=== PATIENT | male | born 1945 | race Caucasian/White ===

== ENCOUNTER 2021-07-23 23:19 | Emergency (ER) | payer OTHER, MEDICARE, SELFPAY ==
--- NOTE | ~2021-07-23 | XR_ITS ---
EXAMINATION: XR CHEST CLINICAL INFORMATION: Cough. COMPARISON: Chest radiograph dated from 01/03/2018. TECHNIQUE: AP view of the chest was obtained. FINDINGS: Increased interstitial prominence and new hazy opacities bilaterally. No pleural effusion or pneumothorax. No acute osseous findings. Unchanged appearance of the cardiomediastinal silhouette. XR/XR chest 1V IMPRESSION: Increased interstitial markings and new multifocal hazy opacities worrisome for an infectious or inflammatory process.
[2021-07-23 23:28] VITALS: BP 173/76; PULSE 89; RESP 15; TEMP 37.7; O2SAT 93; BMI 32.1
--- NOTE | 2021-07-23 23:43 | ED_ITS ---
HPI - URI/Sore Throat General Chief Complaint: Upper Respiratory Symptoms Stated Complaint: anomia? Time Seen by Provider: 07/23/21 23:30 Source: patient Mode of arrival: ambulatory Limitations: no limitations History of Present Illness HPI Narrative: Patient with no significant lung issues in the past his [id number] was positive for with COVID 1 week ago admitted and discharged , patient not vaccinated against COVID comes here for cough and not feeling good for last 5 days saturating 94% at room air Related Data Previous Rx's Medication Instructions Recorded albuterol sulfate 90 mcg/actuation 2 puff INHALATION Q4-6H PRN #8.5 g 07/24/21 aerosol inhaler (ProAir HFA) dexamethasone 6 mg tablet 6 mg PO DAILY #7 tab 07/24/21 (Decadron) doxycycline hyclate 100 mg tablet 100 mg PO BID #20 tab 07/24/21 Allergies Allergy/AdvReac Type Severity Reaction Status Date / Time No Known Allergies Allergy Unverified 05/14/20 15:10 [No Known Allergies*] Review of Systems Review of Systems: Yes all other systems are reviewed and are negative [facility] Past Medical History Medical History Diabetes HTN (hypertension) Surgical History No history of previous surgery Social History Social History Alcohol intake: unknown Patient Tobacco Use Status: Never used Tobacco Use of substances other than those prescribed or required for medical reasons: Unknown Advance Directives: No Physical Exam Vital Signs: Vital Signs: Last Vital Signs Temp 100 F 07/23/21 23:28 Pulse 89 07/23/21 23:28 Resp 15 07/23/21 23:28 BP 173/76 H 07/23/21 23:28 Pulse Ox 95 07/23/21 23:59 Body Mass Index 32.1 Appearance: Alert. Oriented X3. No acute distress. ENT: Pharynx normal. Oral Mucosa moist Neck: Normal inspection. Neck supple. CVS: Normal heart rate and rhythm. Pulses normal. Respiratory: No respiratory distress. Equal air entry bilateral, prolonged expiration Abdomen: Soft and nontender. Bowel sounds are present, no mass palpable, no CVA tenderness Skin: Skin warm and dry. Normal skin color. Normal skin turgor. Extremities: No lower extremity edema. No calf tenderness Neuro: Oriented X 3. MDM - URI/Sore Throat MDM Narrative Medical decision making narrative: Patient with COVID-19 infection with slight inflammatory changes in the lung saturating 94% on room air discharge patient home on doxy, Decadron and albuterol inhaler Lab Data Labs: Lab Results 07/23/21 Range/Units 23:34 COVID-19 (NANCY) Positive A (Negative) COVID-19 Clin Com See Note Discharge Plan Discharge Clinical Impression: COVID-19 Patient Disposition: Home, Self-Care Instructions: COVID-19 (Coronavirus Disease 2019) (ED) Additional Instructions: Take medication as prescribed Social Isolation as advised report to the ER if significant shortness of breath Prescriptions: New dexamethasone [Decadron] 6 mg tablet 6 mg PO DAILY Qty: 7 RF: 0 albuterol sulfate [ProAir HFA] 90 mcg/actuation HFA aerosol inhaler 2 puff inhalation Q4-6H PRN (Reason: Wheezing) Qty: 8.5 RF: 0 doxycycline hyclate 100 mg tablet 100 mg PO BID Qty: 20 RF: 0
[2021-07-23 23:57] LABS: IDNOW Serial# 9DD0AD1C
[2021-07-23 23:58] LABS: COVID-19 Test Positive (Negative)
[2021-07-23 23:59] VITALS: O2SAT 95
[2021-07-24] MEDS: dexAMETHasone 2 MG TABLET 10 MG PO (01:20)
[2021-07-24] MEDS: Albuterol Sulfate 90 MCG 8 GM INHALER 2 PUFF INHALE (01:21)
== END 2021-07-24 01:28 | disposition home or self-care (01) ==
PROVIDERS: Emergency Provider Internal Medicine
DX: U07.1 COVID-19 (principal); E11.9 Type 2 diabetes mellitus without complications; I10 Essential (primary) hypertension
CPT/HCPCS: 36415; 71045; 87635; 99284; J8540

== ENCOUNTER 2023-04-17 10:42 | Outpatient (AMB) | payer OTHER, MEDICARE, SELFPAY ==
--- NOTE | 2023-04-17 10:44 | MHC.OFFVIS ---
Intake Vital Signs 04/17/23 10:45 Height 5 ft 11 in Weight 207 lb 3.752 oz BMI 28.9 BP 160/71 H Blood Pressure Location Lt brachial Position Sitting Pulse 66 Intake Visit Reasons: Blood in stool, low Hgb & Hct Intake Note: Yusuf presents in the office as a new patient for blood in the stool and low HGB, HCT. CC: He states that he has never had a colonoscopy. Patient states that he did a cologard that tested pos but he does not see any blood when he has a BM. He knows he is here to discuss a colonoscopy. 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 Pt reports having routine blood work done through his primary care office at the [place] this February that showed severe anemia with hemoglobin of 8 and ferritin of 4. Labs prior to this done in August 2022 were normal per his report. Patient himself has no abdominal complaints to include abdominal pain, nausea, vomiting, early satiety, changes in bowel habits, unintentional weight loss. No family history of colon cancer. Has never had colon cancer screening done in the past. [facility] Medical History Diabetes History of anal fissures HTN (hypertension) Hx of pilonidal cyst Surgical History Hx of appendectomy Hx of cholecystectomy Social History Alcohol intake: unknown Patient Tobacco Use Status: Never used Tobacco Review of Systems Const All systems reviewed & are unremarkable except as noted in HPI and below Physical Exam Vital Signs: Last Vital Signs Pulse 66 04/17/23 10:45 BP 160/71 H 04/17/23 10:45 BMI result Body Mass Index 28.9 Gen appear: NAD HEENT: nonicteric, Scaly 1.5 cm oblique lesion on the nose bridge Chest: CTA CVS: Regular S1/S2 Abd: soft, nontender, nondistended, bowel sounds + Ext: no peripheral edema Neuro: A/Ox3, noted to move all extremities spontaneously Psych: interacting appropriately Assessment & Plan Assessment & Plan (1) Iron deficiency: Code(s): E61.1 - Iron deficiency (2) Anemia: Code(s): D64.9 - Anemia, unspecified (3) Lesion of nose: Code(s): J34.89 - Other specified disorders of nose and nasal sinuses Plan 1. TONIA: Will need urgent workup for severe iron deficiency anemia. Ddx include gastritis/esophagitis, PUD, AVMs, large friable polyp or mass. He has already been started on iron supplements through his primary care provider. Will recheck labs today to ensure it is not needed blood transfusion or IV iron. We will set him up for EGD and colonoscopy in the next few weeks urgently. Split PEG prep instructions reviewed with the patient. Sent to [facility] pharmacy. He was also advised to hold iron supplements for 5-7 days prior to the procedure. 2. Skin lesion Noted to have lesion on the bridge of his nose that appears suspicious for basal cell. Was advised to see Dermatology perla for this. Follow up after scopes. Orders: Orders Complete Blood Count no Diff Today E61.1 - Iron deficiency Ferritin Today E61.1 - Iron deficiency Medications: New peg 3350-electrolytes 236-22.74-6.74 -5.86 gram (Golytely) as per split prep instructions, until fecal effluent is clear 240 mL PO Q10M 4,000 mL 0RF colonoscopy Coding Level of Care Code New Pt Level 4 (69668) Diagnoses Iron deficiency E61.1 Anemia D64.9 Lesion of nose J34.89
[2023-04-17 10:45] VITALS: BP 160/71; PULSE 66; BMI 28.9
== END 2023-04-17 16:01 | disposition home or self-care (01) ==
PROVIDERS: Visit Provider Internal Medicine
DX: E61.1 Iron deficiency (principal); D64.9 Anemia, unspecified; J34.89 Other specified disorders of nose and nasal sinuses
CPT/HCPCS: 99204

== ENCOUNTER 2023-04-17 10:42 | Outpatient (REF) | payer OTHER, SELFPAY ==
[2023-04-17 12:08] LABS: Hematocrit 31.2 % (42.0-52.0); Hemoglobin 9.1 g/dl (14.0-18.0); Mean Corpuscular HGB Conc 29.2 g/dl (31.0-36.0); Mean Corpuscular Hemoglobin 22.8 pg (27.0-33.0); Mean Corpuscular Volume 78.2 fL (80.0-98.0); Mean Platelet Volume 10.3 fL (9.4-12.4); Platelet Count 387 X10*3/uL (160-400); Red Blood Count 3.99 X10*6/uL (4.60-5.80); Red Cell Distribution Width 23.4 % (11.0-16.0); White Blood Count 9.4 X10*3/uL (4.8-10.8)
[2023-04-17 12:46] LABS: Ferritin 17 ng/mL (20-250)
== END 2023-04-17 10:43 | disposition home or self-care (01) ==
LOC: HO.LAB 10:42
PROVIDERS: PCP Family Medicine; Visit Provider Internal Medicine
DX: D50.9 Iron deficiency anemia, unspecified (principal); J34.89 Other specified disorders of nose and nasal sinuses; I10 Essential (primary) hypertension; R73.03 Prediabetes
CPT/HCPCS: 36415; 82728; 85027; 99202

== ENCOUNTER 2023-04-26 12:44 | Day surgery (SDC) | payer OTHER, SELFPAY ==
[2023-04-24 08:05] VITALS: BMI 28.9
--- NOTE | 2023-04-24 13:38 | HO.ANESPROP2 ---
Documented by User: Denisse Bloom NP 04/24/23 13:39 HPI - Anesthesia Eval Consult details Narrative: 77yo M for Upper Endoscopy and Colonoscopy PMFSH Active Problems Active Problems: All Active Problems (Updated 04/24/23 @ 07:56 by Libra Kanh RN) COVID-19 (Acute) Iron deficiency (Acute) Anemia (Acute) Lesion of nose (Acute) Past Medical History Medical History Cancer of skin of face Diabetes History of anal fissures HTN (hypertension) Hx of pilonidal cyst Hyperlipidemia Iron deficiency anemia Obesity Vitamin B 12 deficiency Vitamin D deficiency Surgical History Surgical History History of cataract surgery History of surgical removal of pilonidal cyst Hx of appendectomy Hx of cholecystectomy Social History Social History Alcohol intake: unknown Patient Tobacco Use Status: Never used Tobacco Use of substances other than those prescribed or required for medical reasons: No Are you DNR?: No Advance Directives: No Advance Directives Information Provided: Yes Meds Allergies Allergy/AdvReac Type Severity Reaction Status Date / Time No Known Allergies Allergy Verified 04/26/23 13:19 [No Known Allergies*] Home Medications Medication Instructions Recorded Confirmed Last Taken Type amlodipine 10 mg tablet 10 mg PO DAILY 04/24/23 04/26/23 04/26/23 History cyanocobalamin (vitamin B-12) 500 500 mcg PO DAILY 04/24/23 04/24/23 Unknown History mcg tablet docusate sodium 100 mg capsule 100 mg PO BID PRN Constipation 04/24/23 04/24/23 Unknown History dulaglutide 1.5 mg/0.5 mL 1.5 mg subcut QWEEK 04/24/23 04/26/23 04/05/23 History subcutaneous pen injector lisinopril 40 mg tablet 40 mg PO DAILY 04/24/23 04/26/23 04/26/23 History metformin 500 mg tablet,extended 1,000 mg PO DAILY 04/24/23 04/26/23 04/24/23 History release 24 hr carvedilol DAILY 04/26/23 04/26/23 History Exam Exam Date and Time: April 24, 2023 1338 Height,Weight and Vital Signs: Height 5 ft 11 in Weight 93.894 kg Pertinent Lab Results Pertinent Lab Results: Laboratory Tests 04/17/23 11:33 WBC 9.4 Hgb 9.1 L Hct 31.2 L Plt Count 387 Assessment and Plan Assessment Anesthesia Assessment: Chart Reviewed Documented by User: Shahida Peguero MD 04/26/23 14:18 PMFSH Active Problems Active Problems: All Active Problems (Updated 04/26/23 @ 13:58 by Shahida Peguero MD) COVID-19 (Acute) Iron deficiency (Acute) Anemia (Acute) Lesion of nose (Acute) Past Medical History Medical History Cancer of skin of face Diabetes History of anal fissures HTN (hypertension) Hx of pilonidal cyst Hyperlipidemia Iron deficiency anemia Obesity Vitamin B 12 deficiency Vitamin D deficiency Family History Family history of problems with anesthesia: No Surgical History Surgical History History of cataract surgery History of surgical removal of pilonidal cyst Hx of appendectomy Hx of cholecystectomy History of Problems with Anesthesia: Yes (Slow awakening with lap sonal) Social History Social History Alcohol intake: unknown Patient Tobacco Use Status: Never used Tobacco Use of substances other than those prescribed or required for medical reasons: No Are you DNR?: No Advance Directives: No Advance Directives Information Provided: Yes Meds Allergies Allergy/AdvReac Type Severity Reaction Status Date / Time No Known Allergies Allergy Verified 04/26/23 13:19 [No Known Allergies*] Home Medications Medication Instructions Recorded Confirmed Last Taken Type amlodipine 10 mg tablet 10 mg PO DAILY 04/24/23 04/26/23 04/26/23 History cyanocobalamin (vitamin B-12) 500 500 mcg PO DAILY 04/24/23 04/24/23 Unknown History mcg tablet docusate sodium 100 mg capsule 100 mg PO BID PRN Constipation 04/24/23 04/24/23 Unknown History dulaglutide 1.5 mg/0.5 mL 1.5 mg subcut QWEEK 04/24/23 04/26/23 04/05/23 History subcutaneous pen injector lisinopril 40 mg tablet 40 mg PO DAILY 04/24/23 04/26/23 04/26/23 History metformin 500 mg tablet,extended 1,000 mg PO DAILY 04/24/23 04/26/23 04/24/23 History release 24 hr carvedilol DAILY 04/26/23 04/26/23 History Exam Height,Weight and Vital Signs: Height 5 ft 11 in Weight 93.894 kg Vital Signs Temp Pulse Resp BP Pulse Ox O2 Del Method 04/26/23 13:25 98.9 F 66 16 152/63 H 98 Room Air Pertinent Lab Results Pertinent Lab Results: Laboratory Tests 04/17/23 11:33 WBC 9.4 Hgb 9.1 L Hct 31.2 L Plt Count 387 Lab Results 04/26/23 Range/Units 13:34 POC Glucose 178 H (60-115) mg/dL Airway Mallampati Class: III (Receding chin) TM Dist: >3cm Neck ROM: Full Loose/Missing/Broken Teeth: Yes (Some missing. Painful molar left bottom. Denies broken or loose teeth) Heart: RRR Lungs: CTAB Assessment and Plan Assessment Anesthesia Assessment: Anesthesia Plan Discussed Final Anesthetic Review Family History of Problems with Anesthesia: No History of Problems with Anesthesia: Yes (Slow awakening with lap sonal) NPO: Yes ASA Class: III Final Preanesthetic Review: No Changes in Pt Med Stat, Meds/Allgs Chart Reviewed, Consent Obtained/Reviewed and Anes Risks/Benef Reviewed Patient Risk: Intermediate Procedure Risk: Low Assessment/Block/Sedation in SS: Assess/Block/Sedation-SS Anesthetic Plan Anesthetic Plan: MAC: Disposition: Standard PACU
[2023-04-26 13:23] VITALS: BMI 28.6
[2023-04-26 13:25] VITALS: BP 152/63; PULSE 66; RESP 16; TEMP 37.2; O2SAT 98
[2023-04-26 13:38] LABS: Glucose, Whole Blood 178 mg/dL (60-115)
--- NOTE | 2023-04-26 13:39 | MHC.SHP ---
Pre-Procedural Eval Section A Date of Service: 04/26/23 The History & Physical has been completed within 30 days and I have reviewed it.: Yes Section B Chief Complaint: Other fecal abnormalities,Anemia, unspecified Allergies: Allergies Allergy/AdvReac Type Severity Reaction Status Date / Time No Known Allergies Allergy Verified 04/26/23 13:19 [No Known Allergies*] Plan Diagnosis/Plan: Unchanged I have reviewed the history and physical and performed a pertinent physical examination on my patient. No changes have occurred unless specified. Time Spent With Patient Time: Total time managing care of this patient today ____ minutes.
[2023-04-26] MEDS: Lactated Ringers 1,000 ML 100 ML IVCONT (13:43)
--- NOTE | 2023-04-26 14:13 | P.OP_ITS ---
Operative Note Operative Note Date of Service: 04/26/23 Narrative: Procedure:?Esophagogastroduodenoscopy and colonoscopy Endoscopist:?Lisa Small MD Indication:?Iron deficiency anemia Anesthesia Provider:?Linda Griffith CRNA Anesthesia Type:?MAC Instrument:?Olympus GIF-H190, PCF-190L EGD Procedure:?? The procedure, indications, preparation and potential complications were reviewed with the patient, who indicated understanding and gave written informed consent to proceed. A physical exam was performed. The endoscope was introduced through the mouth, and advanced to the second part of duodenum. The mucosa was carefully examined on slow withdrawal of the endoscope.? There were no immediate complications.? Patient tolerated the procedure well. EGD Findings:? * Esophagus:? Normal mucosa noted in the entire esophagus.? The Z-line is at 40 cm. * Stomach:? Normal gastric mucosa. Retroflexion was performed in the fundus which showed Hill grade II hiatal hernia. Cold forceps biopsies were taken to r/o H Pylori. * Duodenum:? Edematous mucosa in the duodenal bulb. Normal mucosa was noted to the second portion of the duodenum. Cold forceps biopsies were taken. Colonoscopy Procedure:? The patient was then turned for the colonoscopy. A digital rectal exam was performed which was normal.? A distal attachment cap was affixed to the tip of the scope and the colonoscope was then inserted through the anus and advanced through the colon to 85 cm till colon mass. Mucosa was carefully examined under high definition white light as the instrument was slowly withdrawn in a retrograde panoramic fashion. Retroflexion was performed in the rectum. The procedure was not difficult. There were no immediate obvious complications. The quality of the prep was BBPS: N/A+2+3 = R colon landmarks not identified Withdrawal time: 10 minutes Limitations: No limitation. Findings: Mucosa: A large friable, ulcerated mass spanning at least 6 cm was noted past the hepatic flexure. Scope could not be traversed safely beyond the mass due to deep ulceration and bleeding. Multiple cold forceps biopsies were taken for histology. The mass is likely in ascending colon just distal to cecum however as the cecal landmarks were not identified, a tattoo was placed 5 cm distal to the mass. Protruding lesions: * 1 semi pedunculated polyp of size 8 mm was noted just adjacent to the mass which was removed via cold snare polypectomy but not retrieved. * 1 sessile polyp of size 6 mm was noted in the transverse colon which was removed via cold snare polypectomy but not retrieved. * Medium internal hemorrhoids without stigmata of recent bleeding. Excavated lesions: * Severe diverticulosis of left colon. Impression: 1. Normal esophageal mucosa 2. Normal stomach mucosa (biopsy) 3. Abnormal duodenal bulb mucosa (biopsy) 4. Malignant appearing ascending colon mass (biopsy, tattoo) 5. Diverticulosis 6. Internal hemorrhoids Recommendations:?? * Appearance highly suspicious for malignant mass * Await pathology results.? * CT Chest, abd and pelvis ordered for staging * Referral to Oncology requested. Depending on staging scans and histology, may refer to surgery as well as pt otherwise in good health. Findings reviewed in detail with the pt.
--- NOTE | 2023-04-26 14:16 | PC.NURSE ---
Preop desk monitor showing right bundle branch block with possible first degree heart block. Patient asymptomatic. Dr. Peguero made aware. No new orders at this time, may proceed with procedure.
[2023-04-26 15:16] VITALS: BP 107/55; PULSE 59; RESP 14; TEMP 36.5; O2SAT 100
[2023-04-26 15:31] VITALS: BP 135/64; PULSE 67; RESP 16; O2SAT 98
[2023-04-26 15:46] VITALS: BP 137/62; PULSE 65; RESP 16; TEMP 36.4; O2SAT 98
== END 2023-04-26 16:01 | disposition home or self-care (01) ==
PROVIDERS: Student in an Organized Health Care Education/Training Program; PCP Family Medicine; Visit Provider Internal Medicine
PROC: (CPT 45385; principal; 2023-04-26 14:00)
DX: D50.9 Iron deficiency anemia, unspecified (principal); R19.5 Other fecal abnormalities; C18.2 Malignant neoplasm of ascending colon; K63.5 Polyp of colon; K57.30 Diverticulosis of large intestine without perforation or abscess without bleeding; K64.8 Other hemorrhoids; K60.2 Anal fissure, unspecified; K63.89 Other specified diseases of intestine; K29.80 Duodenitis without bleeding; K44.9 Diaphragmatic hernia without obstruction or gangrene; C44.310 Basal cell carcinoma of skin of unspecified parts of face; I10 Essential (primary) hypertension; E11.9 Type 2 diabetes mellitus without complications; E55.9 Vitamin D deficiency, unspecified; E53.8 Deficiency of other specified B group vitamins; E66.9 Obesity, unspecified; Z68.28 Body mass index [BMI] 28.0-28.9, adult; Z90.49 Acquired absence of other specified parts of digestive tract; Z79.84 Long term (current) use of oral hypoglycemic drugs; Z79.899 Other long term (current) drug therapy
CPT/HCPCS: 45385; 45380; 45381; 43239; 36415; 81210; 81275; 81276; 81288; 81311; 81403; 82947; 88305; 88341; 88342; J2371

== ENCOUNTER → 2023-04-26 12:44 | Outpatient (BNV) | payer MEDICARE, SELFPAY | PROVIDERS: PCP Family Medicine; Visit Provider Internal Medicine | DX: D50.9 Iron deficiency anemia, unspecified (principal); K57.30 Diverticulosis of large intestine without perforation or abscess without bleeding; K64.8 Other hemorrhoids; D12.3 Benign neoplasm of transverse colon; C18.2 Malignant neoplasm of ascending colon | CPT/HCPCS: 43239; 45385 ==

== ENCOUNTER 2023-05-12 08:45 | Outpatient (REF) | payer OTHER, MEDICARE, SELFPAY ==
--- NOTE | ~2023-05-12 | CT_ITS ---
EXAMINATION: CT CHEST WITH CONTRAST CLINICAL INFORMATION: Colon Mass COMPARISON: Previous chest x-ray June 2021 and chest CTA December 2017 TECHNIQUE: Multidetector volumetric CT imaging of the chest was obtained after the administration of 85 mL of Omnipaque 350 intravenous contrast without immediate adverse reactions. Axial MIP volume rendering provided. Sagittal and coronal reformatted images were obtained. This CT examination was performed using dose optimization techniques as appropriate, variously including the following: *Automated exposure control *Adjustment of mA and/or kV according to patient size (this includes techniques or standardized protocols for targeted exams where dose is matched to indication/reason for exam; i.e. extremities or head) *Use of iterative reconstruction technique DLP: 153 mGy-cm FINDINGS: LUNGS: 2 mm peripheral or subpleural left upper lobe nodule axial image 244 series 5. 2 mm left upper lobe nodule axial image 260 series 5. 4 mm peripheral or subpleural right upper lobe nodule along the minor fissure axial image 284 series 5 adjacent peripheral or subpleural left lower lobe nodules measuring 4 mm axial image 415 and 417 series 5. These probably represent peripheral or subpleural lymph nodes. Comparison with previous chest CT from December 2017 and is difficult given bilateral multilobar pneumonia on 2018 exam. Evaluation of the lung bases is limited due to respiratory motion artifact. There is focal bronchiectasis, bronchial wall thickening and increased peribronchial attenuation in the left lower lobe probably representing airways disease/infectious or inflammatory process. There are similar changes of bronchial wall thickening and increased peribronchial attenuation in the right lower lobe as well. No endobronchial or endotracheal lesion. MEDIASTINUM: Small mediastinal and bilateral hilar lymph nodes. No enlarged lymph nodes. Normal heart size. No pericardial effusion. Mild coronary artery calcification. PLEURA: There is no pleural effusion. No pleural mass or thickening. AXILLA: No lymphadenopathy. UPPER ABDOMEN: See abdominal and pelvic CT report from the same day OSSEOUS STRUCTURES: Degenerative changes of the spine. CT/CT chest w IV con IMPRESSION: Small pulmonary nodules, the majority probably representing peripheral or subpleural lymph nodes. Chest CT follow-up as per protocol. Limited evaluation of the lung bases due to respiratory motion artifact. Bronchial wall thickening and increased peribronchial attenuation in both lower lobes and mild focal bronchiectasis in the left lower lobe. Appearance is suggestive of infectious or inflammatory process/bronchitis. Fleischner guidelines were followed.
--- NOTE | ~2023-05-12 | CT_ITS ---
EXAMINATION: CT ABDOMEN AND PELVIS WITH CONTRAST CLINICAL INFORMATION: Colon Mass COMPARISON: Abdominal MRI and ultrasound from 2015 TECHNIQUE: Multidetector volumetric images were obtained from the superior aspect of the liver through the pubic symphysis following administration 85 mL of Omnipaque 350 intravenous contrast. Sagittal and coronal reformatted images were obtained on the technologist's workstation. Oral contrast: Yes This CT examination was performed using dose optimization techniques as appropriate, variously including the following: *Automated exposure control *Adjustment of mA and/or kV according to patient size (this includes techniques or standardized protocols for targeted exams where dose is matched to indication/reason for exam; i.e. extremities or head) *Use of iterative reconstruction technique DLP: 542 mGy-cm FINDINGS: LUNG BASES: See chest CT report from the same day LIVER, GALLBLADDER, AND BILIARY TREE: The liver is normal in size, shape, and attenuation. No focal hepatic lesion or biliary ductal dilatation is present. The gallbladder has been removed. PANCREAS: Unremarkable. SPLEEN: Unremarkable. ADRENAL GLANDS: Unremarkable. KIDNEYS AND URETERS: The kidneys are normal in size, shape, and attenuation. No hydronephrosis, hydroureter, or calculi seen. No perinephric stranding. Bilateral renal cysts. No imaging follow-up recommended. BLADDER: Unremarkable. GASTROINTESTINAL TRACT: There is marked irregular wall thickening of the distal right colon with apple core appearance or a luminal narrowing. This measures 6.4 cm in longitudinal dimension. There is stranding of the surrounding fat. There are enlarged pericolic lymph nodes, largest measuring 1.7 cm. Contrast passes through this region and there is no evidence for obstruction at this time. There is stool throughout the colon suggestive of constipation. There is a severe diverticulosis of the distal colon. Small bowel is unremarkable. The appendix is not seen. ABDOMINAL WALL: There are ventral and umbilical hernias containing fat. LYMPH NODES: Enlarged pericolic lymph nodes adjacent to the right colon mass. Largest lymph node measures 1.7 cm in short axis. No other adenopathy. No ascites. VASCULAR: Unremarkable. PELVIC VISCERA: Slightly enlarged measuring 4 x 5.3 cm in AP and transverse dimension OSSEOUS STRUCTURES: Degenerative changes of the spine and hip joints CT/CT abdomen pelvis w IV con IMPRESSION: Large right colon mass measuring 6.4 cm in length with applecore appearance suspicious for neoplasm. Enlarged adjacent pericolic lymph nodes, largest measuring 1.7 cm in short axis and stranding of the adjacent fat. No evidence of of distant disease. Constipation and diverticulosis. Large ventral and umbilical hernias containing fat. Fleischner guidelines were followed.
[2023-05-12 09:30] LABS: Anion Gap 12 (12-20); Blood Urea Nitrogen 17 mg/dL (9-16); Calcium 8.7 mg/dL (8.4-10.2); Carbon Dioxide 24 mmol/L (22-29); Chloride 111 mmol/L (96-108); Estimated Glomerular Filt Rate 58; Glucose Random 230 mg/dL (60-115); Potassium 4.9 mmol/L (3.3-5.1); Sodium 142 mmol/L (135-145)
[2023-05-12] MEDS: iohexoL 350 MG/ML 100 ML INFUS..BTL 85 ML IV (11:42)
[2023-05-12] MEDS: Barium Sulfate Oral (Mocha) 450 ML ORAL.SUSP 900 ML PO (11:47)
== END 2023-05-12 08:46 | disposition home or self-care (01) ==
LOC: HO.CT 08:45
PROVIDERS: PCP Family Medicine; Visit Provider Internal Medicine
DX: K63.89 Other specified diseases of intestine (principal)
CPT/HCPCS: 36415; 71260; 74177; 80048; Q9967

== ENCOUNTER → 2023-05-19 08:45 | Outpatient (BNV) | payer MEDICARE, SELFPAY | PROVIDERS: PCP Family Medicine; Visit Provider Internal Medicine Medical Oncology | DX: D50.9 Iron deficiency anemia, unspecified (principal); Z85.038 Personal history of other malignant neoplasm of large intestine; Z92.21 Personal history of antineoplastic chemotherapy | CPT/HCPCS: 99204; 99213; 99214 ==

== ENCOUNTER 2023-05-26 14:16 | Outpatient (AMB) | payer OTHER, SELFPAY ==
[2023-05-26 14:18] VITALS: BP 155/68; PULSE 62; BMI 29.2
--- NOTE | 2023-05-26 14:18 | A.OFFVIS_ITS ---
Intake Vital Signs 05/26/23 14:18 Height 5 ft 11 in Weight 209 lb 7.026 oz BMI 29.2 BP 155/68 H Blood Pressure Location Lt brachial Position Sitting Pulse 62 Intake Visit Reasons: Urgent EGD, [place]; Dr Small Intake Note: Yusuf presents in the office as a follow up EGD and COLO. CC: HE states that he is feeling okay! 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 04/17/23: Pt reports having routine blood work done through his primary care office at the [facility] this February that showed severe anemia with hemoglobin of 8 and ferritin of 4. Labs prior to this done in August 2022 were normal per his report. Patient himself has no abdominal complaints to include abdominal pain, nausea, vomiting, early satiety, changes in bowel habits, unintentional weight loss. No family history of colon cancer. Has never had colon cancer screening done in the past. 04/26/23: 1. Normal esophageal mucosa 2. Normal stomach mucosa (biopsy) 3. Abnormal duodenal bulb mucosa (biopsy ) 4. Malignant appearing ascending colon m ass (biopsy, tattoo) 5. Diverticulosis 6. Internal hemorrhoids Path: A. 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 B. 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 C. Stomach, random, biopsies: Mild reactive gastropathy, no evidence of H. pylori, intestinal metaplasia, or dysplasia. D. Colon, ascending, biopsy of mass: Adenocarcinoma, invasive, moderately differentiated Addendum #1 Mismatch repair immunohistochemistry shows intact MLH1, MSH2, and MSH6 staining and loss of PMS2 staining. MLH1 methylation promoter methylation is not detected by an analysis performed at [facility]. 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 05/12/23: CT chest/abd/pel: Small pulmonary nodules, the majority probably representing peripheral or subpleural lymph nodes. Chest CT follow-up as per protocol. Limited evaluation of the lung bases due to respiratory motion artifact. Bronchial wall thickening and increased peribronchial attenuation in both lower lobes and mild focal bronchiectasis in the left lower lobe. Appearance is suggestive of infectious or inflammatory process/bronchitis. Large right colon mass measuring 6.4 cm in length with applecore appearance suspicious for neoplasm. Enlarged adjacent pericolic lymph nodes, largest measuring 1.7 cm in short axis and stranding of the adjacent fat. No evidence of of distant disease. Constipation and diverticulosis. Large ventral and umbilical hernias containing fat. 05/26/23: Seen in office. Reports no abd pain, N,V, changes in stool or blood in stool. Continues on iron supplements. Reports good energy levels, has been mowing his lawn. Seen by Onc and waiting to see surgery. Also tells me was sent for genetic testing through Dr Griffiths. For the nose lesion, has not seen his customer support assistant yet. Planning to take care of that after his colon surgery. COUNT INCLUDES [facility] Medical History Vitamin B 12 deficiency Obesity Iron deficiency anemia Vitamin D deficiency Hyperlipidemia Cancer of skin of face Hx of pilonidal cyst History of anal fissures Diabetes HTN (hypertension) Surgical History (Updated 05/26/23 @ 14:19 by LISSA Myers) Hx of colonoscopy History of esophagogastroduodenoscopy (EGD) History of cataract surgery History of surgical removal of pilonidal cyst Hx of appendectomy Hx of cholecystectomy Social History Household Members: Spouse Housing: House Alcohol intake: unknown Patient Tobacco Use Status: Never used Tobacco service: Yes Current occupational status: retired Review of Systems Const All systems reviewed & are unremarkable except as noted in HPI and below Physical Exam Vital Signs: Last Vital Signs Pulse 62 05/26/23 14:18 BP 155/68 H 05/26/23 14:18 BMI result Body Mass Index 29.2 Gen appear: NAD HEENT: nonicteric, Scaly 1.5 cm oblique lesion on the nose bridge Chest: CTA CVS: Regular S1/S2 Abd: soft, nontender, nondistended, bowel sounds + Ext: no peripheral edema Neuro: A/Ox3, noted to move all extremities spontaneously Psych: interacting appropriately Assessment & Plan Assessment & Plan (1) Adenocarcinoma of colon: Code(s): C18.9 - Malignant neoplasm of colon, unspecified (2) Colonic mass: Code(s): K63.89 - Other specified diseases of intestine (3) Anemia: Code(s): D64.9 - Anemia, unspecified Plan Awaiting consultation with surgery for discussion and timing of colon resection. Otherwise no concerns at appt today. Further treatment will depend on pathological staging of tumor. He was also informed that he will need a repeat colonoscopy one year post-op. Follow up in 4 months Orders: Referrals Hematology & Oncology Referral K63.89 - Other specified diseases of intestine Coding Level of Care Code Est Pt Level 4 (48642) Diagnoses Adenocarcinoma of colon C18.9 Colonic mass K63.89 Anemia D64.9
== END 2023-05-26 14:51 | disposition home or self-care (01) ==
PROVIDERS: PCP Family Medicine; Visit Provider Internal Medicine
DX: C18.9 Malignant neoplasm of colon, unspecified (principal); K63.89 Other specified diseases of intestine; D64.9 Anemia, unspecified
CPT/HCPCS: 99214

== ENCOUNTER → 2023-05-26 14:16 | Outpatient (BNVA) | payer OTHER, MEDICARE, SELFPAY | PROVIDERS: Visit Provider Internal Medicine | DX: K63.89 Other specified diseases of intestine (principal); C18.9 Malignant neoplasm of colon, unspecified; D64.9 Anemia, unspecified | CPT/HCPCS: 99212 ==

== ENCOUNTER 2023-05-31 14:42 | Outpatient (AMB) | payer OTHER, SELFPAY ==
[2023-05-31 14:44] VITALS: BMI 29.7
--- NOTE | 2023-05-31 14:44 | A.OFFVIS_ITS ---
Intake Vital Signs 05/31/23 14:44 Height 5 ft 11 in Weight 213 lb BMI 29.7 Intake Visit Reasons: Right Colon mass Intake Note: This patient presents for an assessment for right colon mass. Patient c/o; reports no rectal bleeding, pressure or pain, reports has bowel movements at least once daily. 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 He had undergone colonoscopy last 04/26/2023 because of anemia. His hemoglobin in February 2023 was 8 and previously this has been within normal. He had described having some fatigability around that time. He was started on iron pills His colonoscopy last April 26, 2023 showed a lesion in the right colon and biopsies of this had shown an adenocarcinoma. He was therefore referred to me. He otherwise denies any GI complaints. He says he does not have any abdominal pain. He has good bowel movements. He denies any family history of colon cancer. He states that he now feels much better after he had been started on iron pills. [facility] Medical History White coat syndrome with hypertension Pneumonia Chronic bronchitis Incisional hernia Vitamin B 12 deficiency Obesity Iron deficiency anemia Vitamin D deficiency Hyperlipidemia Cancer of skin of face Hx of pilonidal cyst History of anal fissures Diabetes HTN (hypertension) Surgical History History of surgery Hx of endoscopic retrograde cholangiopancreatography Hx of colonoscopy History of esophagogastroduodenoscopy (EGD) History of cataract surgery History of surgical removal of pilonidal cyst Hx of appendectomy Hx of cholecystectomy Social History Household Members: Significant Other Housing: House Are you a primary critical care specialist to a significant other at home: No Do you presently have visiting nurse or other home services: No Alcohol intake: unknown Patient Tobacco Use Status: Never used Tobacco Use of substances other than those prescribed or required for medical reasons: No Currently Displaying Signs/Symptoms of Drug Intoxication Withdrawal: No Any prior treatment program specific to substance use: No Have you been hit, kicked, punched, or otherwise hurt by someone within the past year? If so, by whom?: No Do you feel safe in your current relationship?: Yes Is there a partner from a previous relationship who is making you feel unsafe now?: No Are you made to feel afraid or neglected: No Are you DNR?: No Advance Directives: No (states is HCP, unsure if has copy at home, states has one @ the [facility] Advance Directives Information Provided: Yes (as above noted) Advance Directives on File: No Recently lost weight without trying: No Eating poorly because of decreased appetite: No Nutrition Risks: No Nutritional Risk Poor oral hygiene: No service: No Current occupational status: retired Review of Systems Const Denies chills and Denies fever(s) Card Denies chest pain, Denies dyspnea and Denies dyspnea on exertion Resp Denies cough, Denies dyspnea and Denies dyspnea on exertion GI Denies hematochezia and Denies change in bowel habits Denies hematuria and Denies difficulty urinating Musc Denies back pain and Denies limited range of motion Neuro Denies focal weakness and Denies convulsions Psych Denies depression and Denies mood swings Physical Exam Vital Signs: BMI result Body Mass Index 29.7 Const General: comfortable and no acute distress Orientation/consciousness: patient oriented x3 Neck Neck: Yes no lymphadenopathy Resp Auscultation: clear to auscultation bilaterally Cardio Rhythm: regular rhythm GI Other: Has a large hernia on the umbilical area which he says is from his previous port site for his laparoscopic cholecystectomy; the fascial defect on the CT scan measures about 4.5 cm Palpation (GI): Soft to palpation, nontender and no guarding Neuro General: patient oriented x3 Assessment & Plan Assessment & Plan (1) Adenocarcinoma of colon: Code(s): C18.9 - Malignant neoplasm of colon, unspecified Plan: He has a large lesion in the mid right colon with biopsy showing an invasive adenocarcinoma. I therefore had a long discussion with him about right colon resection. I explained the technique of hand assisted laparoscopic right colon resection, possible conversion to an open procedure. I reviewed with him the risks of the procedure including but not limited to bleeding, infections, bowel injury, staple line leak, injury to the urinary tract or other organs, blood clots, pneumonia, PA, as well as the benefits and alternatives. I also explained to him what to expect postoperatively. We will also repair his incisional hernia on the umbilicus along with the right colon resection. He wants to proceed. His was with him during the visit We will have a preadmission testing with anesthesia arranged for him in view of his age. His imaging studies do not seem to suggest any liver metastatic disease at this time. (2) Incisional hernia: Code(s): K43.2 - Incisional hernia without obstruction or gangrene Plan: He has a large fat containing hernia on the umbilicus from his previous laparoscopic cholecystectomy port site. The fascial defect measures about 4.5 cm. We will plan on repairing this as well along with the right colon resection. Review of his CT shows another smaller hernia above the umbilicus. Coding Level of Care Code New Pt Level 4 (33368) Diagnoses Adenocarcinoma of colon C18.9 Incisional hernia K43.2
== END 2023-05-31 15:13 | disposition home or self-care (01) ==
PROVIDERS: PCP Family Medicine; Visit Provider Surgery
DX: C18.9 Malignant neoplasm of colon, unspecified (principal); K43.2 Incisional hernia without obstruction or gangrene
CPT/HCPCS: 99204

== ENCOUNTER → 2023-05-31 14:42 | Outpatient (BNVA) | payer OTHER, SELFPAY | PROVIDERS: PCP Family Medicine; Visit Provider Surgery ==

== ENCOUNTER 2023-06-14 07:21 | Inpatient (IN) | payer OTHER, SELFPAY ==
--- NOTE | 2023-06-08 | ECG_ITS ---
Test Reason : preop Blood Pressure : / mmHG Vent. Rate : 064 BPM Atrial Rate : 064 BPM P-R Int : 252 ms QRS Dur : 144 ms QT Int : 446 ms P-R-T Axes : 057 -52 010 degrees QTc Int : 460 ms Sinus rhythm with 1st degree A-V block Left anterior fascicular block Right bundle branch block Abnormal ECG When compared with ECG of 03-JAN-2018 20:50, NC interval has increased Referred By: Denisse Bloom Electronically Signed By:SOTERO MATTHEWS MD
[2023-06-08 12:08] VITALS: BP 161/67; PULSE 65; RESP 20; O2SAT 98; BMI 28.7
--- NOTE | 2023-06-08 12:24 | HO.ANESPROP2 ---
Documented by User: Denisse Bloom NP 06/09/23 09:50 HPI - Anesthesia Eval Consult details Narrative: 77yo M for Right Hand Assist Colon Resection Laparoscopic,poss open, Hernia Repair Incisional No recent illness No CP/SOB with yard work. Reports some fatigue likely related to anemia. BP up at PAT. Dx white coat syndrom by pcp. Monitor of home BP WNL DM. Trulicity weekly on Fridays - will hold 06/09/23 dose. FBS ~ 130-150 Chronic bronchitis. No symptoms. Rare coughing at night Pt request HOB elevated post op PMFSH Active Problems Active Problems: All Active Problems (Updated 06/08/23 @ 12:16 by Dennise Steiner RN) Adenocarcinoma of colon (Acute) Adenocarcinoma (Acute) Colonic mass (Acute) Lesion of nose (Acute) Anemia (Acute) Iron deficiency (Acute) COVID-19 (Acute) Incisional hernia (Acute) Past Medical History Medical History White coat syndrome with hypertension Pneumonia Chronic bronchitis Incisional hernia Vitamin B 12 deficiency Obesity Iron deficiency anemia Vitamin D deficiency Hyperlipidemia Cancer of skin of face Hx of pilonidal cyst History of anal fissures Diabetes HTN (hypertension) Family History Family history of problems with anesthesia: No Surgical History Surgical History History of surgery Hx of endoscopic retrograde cholangiopancreatography Hx of colonoscopy History of esophagogastroduodenoscopy (EGD) History of cataract surgery History of surgical removal of pilonidal cyst Hx of appendectomy Hx of cholecystectomy History of Problems with Anesthesia: Yes (Slow awakening with lap sonal) Social History Social History Household Members: Spouse Housing: House Are you a primary respiratory care specialist to a significant other at home: No Do you presently have visiting nurse or other home services: No Alcohol intake: unknown Patient Tobacco Use Status: Never used Tobacco Use of substances other than those prescribed or required for medical reasons: No Have you been hit, kicked, punched, or otherwise hurt by someone within the past year? If so, by whom?: No Are you DNR?: No Advance Directives Information Provided: Yes (as above noted) Advance Directives on File: No Recently lost weight without trying: No Eating poorly because of decreased appetite: No Nutrition Risks: Surgical patient >75years Poor oral hygiene: No (has 4 missing teeth) service: Yes Current occupational status: retired Meds Allergies Allergy/AdvReac Type Severity Reaction Status Date / Time No Known Allergies Allergy Verified 06/14/23 06:19 [No Known Allergies*] Home Medications Medication Instructions Recorded Confirmed Last Taken Type amlodipine 10 mg tablet 10 mg PO QAM 04/24/23 06/14/23 06/14/23 04:45 History cyanocobalamin (vitamin B-12) 500 500 mcg PO QAM 04/24/23 06/14/23 06/13/23 History mcg tablet docusate sodium 100 mg capsule 100 mg PO BID PRN Constipation 04/24/23 06/14/23 06/13/23 History dulaglutide 1.5 mg/0.5 mL 1.5 mg subcut QWEEK 04/24/23 06/14/23 06/02/23 History subcutaneous pen injector lisinopril 40 mg tablet 40 mg PO QAM 04/24/23 06/14/23 06/13/23 History metformin 500 mg tablet,extended 500 mg PO QPM 04/24/23 06/14/23 06/13/23 23:00 History release 24 hr carvedilol 25 mg tablet 25 mg PO BID 06/07/23 06/14/23 06/14/23 04:45 History ferrous sulfate 325 mg (65 mg 325 mg PO QAM 06/07/23 06/14/23 06/13/23 History iron) tablet Exam Exam Date and Time: June 08, 2023 1224 Height,Weight and Vital Signs: Height 5 ft 11 in Weight 93.44 kg Last Vital Signs Pulse 65 06/08/23 12:08 Resp 20 06/08/23 12:08 BP 161/67 H 06/08/23 12:08 Pulse Ox 98 06/08/23 12:08 O2 Del Method Room Air 06/08/23 12:08 Pertinent Lab Results Pertinent Lab Results: Lab Results 06/08/23 06/08/23 06/08/23 Range/Units 13:00 13:09 13:09 WBC 8.5 8.3 (4.8-10.8) X10*3/uL RBC 4.16 L (4.60-5.80) X10*6/uL Hgb (14.0-18.0) g/dl Hct (42.0-52.0) % MCV (80.0-98.0) fL MCH (27.0-33.0) pg MCHC (31.0-36.0) g/dl RDW (11.0-16.0) % Plt Count (160-400) X10*3/uL MPV (9.4-12.4) fL Immature Gran % (Auto) (0.0-0.4) % Neut % (Auto) (45-73) % Lymph % (Auto) (20-40) % Gillespie % (Auto) (2-11) % Eos % (Auto) (0-4) % Baso % (Auto) (0-2) % Lymph # (Auto) (1.2-4.9) X10*3/uL Gillespie # (Auto) (0.1-1.2) X10*3/uL Eos # (Auto) (0.0-0.4) X10*3/uL Baso # (Auto) (0.0-0.2) X10*3/uL Abs Immat Gran (auto) (0.00-0.03) X10*3/uL Absolute Neuts (auto) (2.0-8.3) x10*3/uL Absolute Nucleated RBC (0.0-0.012) X10*3/uL Nucleated RBC % (auto) (0.0-0.2) /100WBC Sodium (135-145) mmol/L Potassium (3.3-5.1) mmol/L Chloride (96-108) mmol/L Carbon Dioxide (22-29) mmol/L Anion Gap (12-20) BUN (9-16) mg/dL Creatinine (0.5-1.4) mg/dL Estim Creat Clear Calc Estimated GFR Random Glucose (60-115) mg/dL Estimat Average Glucose mg/dL Hemoglobin A1c % (<6.0) % Calcium (8.4-10.2) mg/dL Total Bilirubin (0.0-1.0) mg/dL AST (5-37) U/L ALT (0-40) U/L Alkaline Phosphatase (39-117) U/L Total Protein (6.5-8.0) g/dL Albumin (3.5-5.0) g/dL Carcinoembryonic Ag ng/mL Blood Type A Positive Antibody Screen NEGATIVE 06/08/23 06/08/23 06/08/23 Range/Units 13:09 13:09 13:09 WBC (4.8-10.8) X10*3/uL RBC 4.07 L (4.60-5.80) X10*6/uL Hgb 9.9 L 9.9 L (14.0-18.0) g/dl Hct 33.2 L 32.7 L (42.0-52.0) % MCV 79.8 L (80.0-98.0) fL MCH (27.0-33.0) pg MCHC (31.0-36.0) g/dl RDW (11.0-16.0) % Plt Count (160-400) X10*3/uL MPV (9.4-12.4) fL Immature Gran % (Auto) (0.0-0.4) % Neut % (Auto) (45-73) % Lymph % (Auto) (20-40) % Gillespie % (Auto) (2-11) % Eos % (Auto) (0-4) % Baso % (Auto) (0-2) % Lymph # (Auto) (1.2-4.9) X10*3/uL Gillespie # (Auto) (0.1-1.2) X10*3/uL Eos # (Auto) (0.0-0.4) X10*3/uL Baso # (Auto) (0.0-0.2) X10*3/uL Abs Immat Gran (auto) (0.00-0.03) X10*3/uL Absolute Neuts (auto) (2.0-8.3) x10*3/uL Absolute Nucleated RBC (0.0-0.012) X10*3/uL Nucleated RBC % (auto) (0.0-0.2) /100WBC Sodium (135-145) mmol/L Potassium (3.3-5.1) mmol/L Chloride (96-108) mmol/L Carbon Dioxide (22-29) mmol/L Anion Gap (12-20) BUN (9-16) mg/dL Creatinine (0.5-1.4) mg/dL Estim Creat Clear Calc Estimated GFR Random Glucose (60-115) mg/dL Estimat Average Glucose mg/dL Hemoglobin A1c % (<6.0) % Calcium (8.4-10.2) mg/dL Total Bilirubin (0.0-1.0) mg/dL AST (5-37) U/L ALT (0-40) U/L Alkaline Phosphatase (39-117) U/L Total Protein (6.5-8.0) g/dL Albumin (3.5-5.0) g/dL Carcinoembryonic Ag ng/mL Blood Type Antibody Screen 06/08/23 06/08/23 06/08/23 Range/Units 13:09 13:09 13:09 WBC (4.8-10.8) X10*3/uL RBC (4.60-5.80) X10*6/uL Hgb (14.0-18.0) g/dl Hct (42.0-52.0) % MCV 80.3 (80.0-98.0) fL MCH 23.8 L 24.3 L (27.0-33.0) pg MCHC 29.8 L 30.3 L (31.0-36.0) g/dl RDW 18.6 H (11.0-16.0) % Plt Count (160-400) X10*3/uL MPV (9.4-12.4) fL Immature Gran % (Auto) (0.0-0.4) % Neut % (Auto) (45-73) % Lymph % (Auto) (20-40) % Gillespie % (Auto) (2-11) % Eos % (Auto) (0-4) % Baso % (Auto) (0-2) % Lymph # (Auto) (1.2-4.9) X10*3/uL Gillespie # (Auto) (0.1-1.2) X10*3/uL Eos # (Auto) (0.0-0.4) X10*3/uL Baso # (Auto) (0.0-0.2) X10*3/uL Abs Immat Gran (auto) (0.00-0.03) X10*3/uL Absolute Neuts (auto) (2.0-8.3) x10*3/uL Absolute Nucleated RBC (0.0-0.012) X10*3/uL Nucleated RBC % (auto) (0.0-0.2) /100WBC Sodium (135-145) mmol/L Potassium (3.3-5.1) mmol/L Chloride (96-108) mmol/L Carbon Dioxide (22-29) mmol/L Anion Gap (12-20) BUN (9-16) mg/dL Creatinine (0.5-1.4) mg/dL Estim Creat Clear Calc Estimated GFR Random Glucose (60-115) mg/dL Estimat Average Glucose mg/dL Hemoglobin A1c % (<6.0) % Calcium (8.4-10.2) mg/dL Total Bilirubin (0.0-1.0) mg/dL AST (5-37) U/L ALT (0-40) U/L Alkaline Phosphatase (39-117) U/L Total Protein (6.5-8.0) g/dL Albumin (3.5-5.0) g/dL Carcinoembryonic Ag ng/mL Blood Type Antibody Screen 06/08/23 06/08/23 06/08/23 Range/Units 13:09 13:09 13:09 WBC (4.8-10.8) X10*3/uL RBC (4.60-5.80) X10*6/uL Hgb (14.0-18.0) g/dl Hct (42.0-52.0) % MCV (80.0-98.0) fL MCH (27.0-33.0) pg MCHC (31.0-36.0) g/dl RDW 18.6 H (11.0-16.0) % Plt Count 395 398 (160-400) X10*3/uL MPV 10.2 10.0 (9.4-12.4) fL Immature Gran % (Auto) 0.2 (0.0-0.4) % Neut % (Auto) 68.3 (45-73) % Lymph % (Auto) 18.7 L (20-40) % Gillespie % (Auto) 7.8 (2-11) % Eos % (Auto) 4.0 (0-4) % Baso % (Auto) 1.0 (0-2) % Lymph # (Auto) 1.6 (1.2-4.9) X10*3/uL Gillespie # (Auto) 0.7 (0.1-1.2) X10*3/uL Eos # (Auto) 0.3 (0.0-0.4) X10*3/uL Baso # (Auto) 0.1 (0.0-0.2) X10*3/uL Abs Immat Gran (auto) 0.02 (0.00-0.03) X10*3/uL Absolute Neuts (auto) 5.7 (2.0-8.3) x10*3/uL Absolute Nucleated RBC 0.000 (0.0-0.012) X10*3/uL Nucleated RBC % (auto) (0.0-0.2) /100WBC Sodium (135-145) mmol/L Potassium (3.3-5.1) mmol/L Chloride (96-108) mmol/L Carbon Dioxide (22-29) mmol/L Anion Gap (12-20) BUN (9-16) mg/dL Creatinine (0.5-1.4) mg/dL Estim Creat Clear Calc Estimated GFR Random Glucose (60-115) mg/dL Estimat Average Glucose mg/dL Hemoglobin A1c % (<6.0) % Calcium (8.4-10.2) mg/dL Total Bilirubin (0.0-1.0) mg/dL AST (5-37) U/L ALT (0-40) U/L Alkaline Phosphatase (39-117) U/L Total Protein (6.5-8.0) g/dL Albumin (3.5-5.0) g/dL Carcinoembryonic Ag ng/mL Blood Type Antibody Screen 06/08/23 06/08/23 Range/Units 13:09 13:09 WBC (4.8-10.8) X10*3/uL RBC (4.60-5.80) X10*6/uL Hgb (14.0-18.0) g/dl Hct (42.0-52.0) % MCV (80.0-98.0) fL MCH (27.0-33.0) pg MCHC (31.0-36.0) g/dl RDW (11.0-16.0) % Plt Count (160-400) X10*3/uL MPV (9.4-12.4) fL Immature Gran % (Auto) (0.0-0.4) % Neut % (Auto) (45-73) % Lymph % (Auto) (20-40) % Gillespie % (Auto) (2-11) % Eos % (Auto) (0-4) % Baso % (Auto) (0-2) % Lymph # (Auto) (1.2-4.9) X10*3/uL Gillespie # (Auto) (0.1-1.2) X10*3/uL Eos # (Auto) (0.0-0.4) X10*3/uL Baso # (Auto) (0.0-0.2) X10*3/uL Abs Immat Gran (auto) (0.00-0.03) X10*3/uL Absolute Neuts (auto) (2.0-8.3) x10*3/uL Absolute Nucleated RBC 0.000 (0.0-0.012) X10*3/uL Nucleated RBC % (auto) 0.0 0.0 (0.0-0.2) /100WBC Sodium 140 (135-145) mmol/L Potassium 4.7 (3.3-5.1) mmol/L Chloride 108 (96-108) mmol/L Carbon Dioxide 23 (22-29) mmol/L Anion Gap 14 (12-20) BUN 15 (9-16) mg/dL Creatinine 1.26 (0.5-1.4) mg/dL Estim Creat Clear Calc 58.2 Estimated GFR 56 Random Glucose 167 H (60-115) mg/dL Estimat Average Glucose 160 mg/dL Hemoglobin A1c % 7.2 H (<6.0) % Calcium 9.6 D (8.4-10.2) mg/dL Total Bilirubin 0.2 (0.0-1.0) mg/dL AST 17 (5-37) U/L ALT 7 (0-40) U/L Alkaline Phosphatase 107 (39-117) U/L Total Protein 6.7 (6.5-8.0) g/dL Albumin 3.9 (3.5-5.0) g/dL Carcinoembryonic Ag 15.40 ng/mL Blood Type Antibody Screen Narrative Narrative: EKG 05/2023 Vent. Rate : 064 BPM Atrial Rate : 064 BPM P-R Int : 252 ms QRS Dur : 144 ms QT Int : 446 ms P-R-T Axes : 057 -52 010 degrees QTc Int : 460 ms Sinus rhythm with 1st degree A-V block Left anterior fascicular block Right bundle branch block Abnormal ECG When compared with ECG of 03-JAN-2018 20:50, MT interval has increased Airway Mallampati Class: III (Receding chin) TM Dist: >3cm Neck ROM: Full Loose/Missing/Broken Teeth: Yes (Some missing. Denies broken or loose teeth) Heart: RRR Lungs: CTAB Assessment and Plan Assessment Anesthesia Assessment: Anesthesia Plan Discussed and PAT Visit Final Anesthetic Review Family History of Problems with Anesthesia: No History of Problems with Anesthesia: Yes (Slow awakening with lap sonal) Documented by User: Chapito Gomez MD 06/14/23 08:15 [facility] Past Medical History Medical History White coat syndrome with hypertension Pneumonia Chronic bronchitis Incisional hernia Vitamin B 12 deficiency Obesity Iron deficiency anemia Vitamin D deficiency Hyperlipidemia Cancer of skin of face Hx of pilonidal cyst History of anal fissures Diabetes HTN (hypertension) Surgical History Surgical History History of surgery Hx of endoscopic retrograde cholangiopancreatography Hx of colonoscopy History of esophagogastroduodenoscopy (EGD) History of cataract surgery History of surgical removal of pilonidal cyst Hx of appendectomy Hx of cholecystectomy Social History Social History Household Members: Spouse Housing: House Are you a primary respiratory care specialist to a significant other at home: No Do you presently have visiting nurse or other home services: No Alcohol intake: unknown Patient Tobacco Use Status: Never used Tobacco Use of substances other than those prescribed or required for medical reasons: No Have you been hit, kicked, punched, or otherwise hurt by someone within the past year? If so, by whom?: No Are you DNR?: No Advance Directives Information Provided: Yes (as above noted) Advance Directives on File: No Recently lost weight without trying: No Eating poorly because of decreased appetite: No Nutrition Risks: Surgical patient >75years Poor oral hygiene: No (has 4 missing teeth) service: Yes Current occupational status: retired [email or web address] Allergies Allergy/AdvReac Type Severity Reaction Status Date / Time No Known Allergies Allergy Verified 06/14/23 06:19 [No Known Allergies*] Home Medications Medication Instructions Recorded Confirmed Last Taken Type amlodipine 10 mg tablet 10 mg PO QAM 04/24/23 06/14/23 06/14/23 04:45 History cyanocobalamin (vitamin B-12) 500 500 mcg PO QAM 04/24/23 06/14/23 06/13/23 History mcg tablet docusate sodium 100 mg capsule 100 mg PO BID PRN Constipation 04/24/23 06/14/23 06/13/23 History dulaglutide 1.5 mg/0.5 mL 1.5 mg subcut QWEEK 04/24/23 06/14/23 06/02/23 History subcutaneous pen injector lisinopril 40 mg tablet 40 mg PO QAM 04/24/23 06/14/23 06/13/23 History metformin 500 mg tablet,extended 500 mg PO QPM 04/24/23 06/14/23 06/13/23 23:00 History release 24 hr carvedilol 25 mg tablet 25 mg PO BID 06/07/23 06/14/23 06/14/23 04:45 History ferrous sulfate 325 mg (65 mg 325 mg PO QAM 06/07/23 06/14/23 06/13/23 History iron) tablet Exam Airway Mallampati Class: II (Receding chin) Assessment and Plan Final Anesthetic Review NPO: Yes ASA Class: III Final Preanesthetic Review: No Changes in Pt Med Stat, Meds/Allgs Chart Reviewed, Consent Obtained/Reviewed and Anes Risks/Benef Reviewed Patient Risk: Intermediate Procedure Risk: Intermediate Anesthetic Plan Anesthetic Plan: GA and Agree w/ Assess. and Plan Disposition: Standard PACU
[2023-06-08 13:10] LABS: MANUAL DIFF FLAG NO
[2023-06-08 13:49] LABS: Basophils Absolute Auto 0.1 X10*3/uL (0.0-0.2); Eosinophils Absolute Auto 0.3 X10*3/uL (0.0-0.4); Hematocrit 32.7 % (42.0-52.0); Hematocrit 33.2 % (42.0-52.0); Hemoglobin 9.9 g/dl (14.0-18.0); Imm Gran Abs Auto 0.02 X10*3/uL (0.00-0.03); Imm Gran Pct Auto 0.2 % (0.0-0.4); Lymphocytes Absolute Auto 1.6 X10*3/uL (1.2-4.9); Lymphocytes Percent Auto 18.7 % (20-40); Mean Corpuscular HGB Conc 29.8 g/dl (31.0-36.0); Mean Corpuscular HGB Conc 30.3 g/dl (31.0-36.0); Mean Corpuscular Hemoglobin 23.8 pg (27.0-33.0); Mean Corpuscular Hemoglobin 24.3 pg (27.0-33.0); Mean Corpuscular Volume 79.8 fL (80.0-98.0); Mean Corpuscular Volume 80.3 fL (80.0-98.0); Mean Platelet Volume 10.2 fL (9.4-12.4); Monocytes Absolute Auto 0.7 X10*3/uL (0.1-1.2); Monocytes Percent Auto 7.8 % (2-11); Neutrophils Absolute Auto 5.7 x10*3/uL (2.0-8.3); Neutrophils Percent Auto 68.3 % (45-73); Platelet Count 395 X10*3/uL (160-400); Platelet Count 398 X10*3/uL (160-400); Red Blood Count 4.07 X10*6/uL (4.60-5.80); Red Blood Count 4.16 X10*6/uL (4.60-5.80); Red Cell Distribution Width 18.6 % (11.0-16.0); White Blood Count 8.3 X10*3/uL (4.8-10.8); White Blood Count 8.5 X10*3/uL (4.8-10.8)
[2023-06-08 14:10] LABS: Estimated Average Glucose 160 mg/dL; Hemoglobin A1c % 7.2 % (<6.0)
[2023-06-08 14:26] LABS: Alanine Aminotransferase 7 U/L (0-40); Albumin Level 3.9 g/dL (3.5-5.0); Alkaline Phosphatase 107 U/L (39-117); Anion Gap 14 (12-20); Aspartate Amino Transferase 17 U/L (5-37); Bilirubin Total 0.2 mg/dL (0.0-1.0); Blood Urea Nitrogen 15 mg/dL (9-16); Calcium 9.6 mg/dL (8.4-10.2); Carbon Dioxide 23 mmol/L (22-29); Chloride 108 mmol/L (96-108); Creatinine Clr Calc Pharmacy 58.2; Estimated Glomerular Filt Rate 56; Glucose Random 167 mg/dL (60-115); Potassium 4.7 mmol/L (3.3-5.1); Sodium 140 mmol/L (135-145); Total Protein 6.7 g/dL (6.5-8.0)
[2023-06-14] VITALS (10 sets, daily range): BP systolic 115–146; BP diastolic 51–68; PULSE 62–69; RESP 16–20; TEMP 36.2–36.7; O2SAT 87–99; BMI 27.8
[2023-06-14] MEDS: Lactated Ringers 1,000 ML 100 ML IVCONT (06:33)
[2023-06-14 06:46] LABS: Glucose, Whole Blood 162 mg/dL (60-115)
--- NOTE | 2023-06-14 07:21 | MHC.SHP ---
Pre-Procedural Eval Section A Date of Service: 06/14/23 The patient is an INPATIENT: No Changes since office visit: No Cold of Flu in the past 2 weeks, No New Medical Problems, No Changes in Medication and No Patient answered all questions The History & Physical has been completed within 30 days and I have reviewed it.: Yes Section B Chief Complaint: Malignant neoplasm of colon,incisional hernia Allergies: Allergies Allergy/AdvReac Type Severity Reaction Status Date / Time No Known Allergies Allergy Verified 06/14/23 06:19 [No Known Allergies*] Plan I have reviewed the history and physical and performed a pertinent physical examination on my patient. No changes have occurred unless specified. Time Spent With Patient Time: Total time managing care of this patient today ____ minutes.
--- OUTSIDE RECORDS SUMMARY | 2023-06-14 07:46 | XMS_ITS | Continuity of Care Document ---
Author Name Unknown Organization [facility] Address [address] [place] [id number]- Care Team Providers Care Industrial Eng Name Role Phone Walker Read MD Primary Care Physician [phone] [facility]counter [facility] [id number] Date(s): 03/31/23 - 04/30/23 [facility] [address] [place] [id number] Attending Physician: Daniela Bravo Admitting Physician: AdmDaniela rowan Referring Physician: AdmtrDaniela Allergies, Adverse Reactions, Alerts No Known Allergies Medications amLODIPine 10 mg oral tablet 10 mg, 1, tablet, By Mouth, Daily, # 30 tablet, Refills 0, Maintenance, 10/04/16 11:14:40 Start Date: 10/04/16 Status: Ordered carvedilol 25 mg oral tablet 25 mg, 1, tablet, By Mouth, 2 times a day, # 180 tablet, Refills 0, Maintenance, 10/04/16 11:14:50 Start Date: 10/04/16 Status: Ordered Colace sodium 100 mg oral capsule 100 mg, 1, capsule, By Mouth, 2 times a day, PRN, take while taking oxycodone. with plenty of water, # 20 capsule, Refills 0, Tot. Refills 0, Maintenance, for constipation, 11/23/16 16:47:29, Print Requisition Start Date: 11/23/16 Status: Ordered lisinopril 40 mg oral tablet 1 tablet = 40 mg, By Mouth, Daily, # 30 tablet, 0 Refills, Maintenance, 10/04/16 11:14:31, Tablet Start Date: 10/04/16 Status: Ordered metFORMIN 500 mg oral tablet 1 tablet = 500 mg, By Mouth, 2 times a day, # 180 tablet, 0 Refills, Maintenance, 10/04/16 11:15:03, Tablet Start Date: 10/04/16 Status: Ordered Social History Social History Type Response Smoking Status Never smoker entered on: 11/29/16 Sex Patient Care team information Care Team Personnel Name: Walker Read MD Position: [facility] Outreach Member Role: PCP Address: Address: [address] [place] [address] [place] [address]- Care Team Related Persons Name: JOSE MIGUEL DENSON Address: home [address] [place] [id number]
--- NOTE | 2023-06-14 09:34 | PHA.MEDREC ---
Pharmacy Consult ? Medication Reconciliation Pharmacy has completed the medication reconciliation.pharmacy has reviewed med rec done by nursing
--- NOTE | 2023-06-14 10:23 | P.OP_ITS ---
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 He is here for hand assisted laparoscopic right colon resection. He understood the technique of the planned procedure as well as the risks, benefits, and alternatives. He also has to incisional hernias on this midline based on his CT scan we plan to repair this as well. He was brought to the operating room and placed supine under general anesthesia via endotracheal tube. Higuera catheter was inserted. The abdomen was prepped and draped in the usual sterile fashion. A surgical time-out was done. The patient received Cefotan 2 g IV preoperatively There was a large umbilical hernia likely from his previous laparoscopic cholecystectomy. He also another hernia in the epigastric area which was much smaller. Both of these contained fat. I made an incision on the umbilical area on the midline using blade 15. This was position overlying the thecal hernia so that we can repair of this hernia through this incision. I extended this incision through the full-thickness of the skin subcutaneous fat with electrocautery until I was able to visualize the hernia contents. We then proceeded to gently dissect the hernia contents of the rest of subcutaneous layer. There was large amounts of chronically incarcerated omental fat. We had to do a lot of careful dissection with Metzenbaum scissors as well as electrocautery to separate this hernia contents off of the subcutaneous layer until we were able to eventually see the fascia. I gently defined the fascia using sharp dissection. I identified interface of the fascial defect and the itself. I did extensive lysis of adhesions to separate the hernia contents of the rest of the fascial defect circumferentially. We had to divide the hernia sac to allow this. This part of the procedure took an extensive period of time until we were able to eventually reduce the entire hernia. The hernia defect was about 4 cm. There was also note of a lot of other adherent omentum surrounding the fascial opening so we had to do more lysis of adhesions using above scissors as well as electrocautery until where where able to create enough space for our GelPort. The Jaspal wound retractor was position. The port was attached. We insufflated using an port with the camera in place. We were using a 10 mm 30 degree scope. It appeared that we had good clearance surrounding the fascial defect. I was able to therefore apply a 5/12 mm port in the epigastric area a 5 mm in the left upper quadrant. We placed the camera in the epigastric port. We had to do more doses of adhesions laparoscopically with the [place] LigaSure on the right lower quadrant. There was note of extensive adherent omentum in this area as well from his previous appendectomy. This part of the procedure took an extended period time as well until able to visualize the cecum and right colon. We then proceeded to divide the ligamentous attachments along the white line of Toldt. The planes were not well-defined in view of scattering around the cecum. We had to proceed slowly and marched from the cecum yearly until we reached the flexure. I could feel the large mass in the right colon and this appeared to be much closer to the back flexure then thought. The planes surrounding the hepatic colic ligaments were also not well-defined because of large amounts of Modic adhesions to the area previous cholecystectomy. We had to find a good plane of dissection in the transverse colon and once we were able to identify the transverse colon a proceeded to separate the hepatic colic ligaments from this. I ligaments from the transverse colon to the back as well. Care was taken so as to make sure that we were not getting closed with the stomach itself. We proceeded to separate the transverse colon from the liver but there was note of dense adhesions so I had to go back to the colon. I continued to therefore define the cecum. There was note of a lot of adhesions the areas were had to do more at lysis of adhesions with the LigaSure until we were able to identify the terminal ileum. There was note of adhesions in 1 part of the terminal ileum which we had to release using the LigaSure from the pelvis. Eventually we were able to find a nicer plane of dissection from the cecum and we this from the retroperitoneum all the way to the hepatic flexure. Again by doing so I was able to visualize a better plane to divide the hepatocolic ligaments. This was done carefully using the LigaSure. I continued to separate the right colon from the retroperitoneum until I was able to visualize the duodenum. This defined the end of our medial dissection. We continued to mobilize the proximal transverse colon dividing the ligamentous attachments which were also fibrotic from his previous gallbladder surgery. Eventually, it appeared that we had adequate mobilization of the entire right colon and the transverse colon up towards the mid part. I therefore removed the GelPort. I was able to bring up the cecum the incision within the Jaspal wound retractor. The mass was bulky so we had to lengthen the fascial defect a little more and we incorporated the epigastric hernia with this incision by dividing the rest of the intervening fascia. This allowed us to bring up the entire right colon into the field. I shows my point of the traction in the ileum. I created a mesenteric window and divided this using the ONI 60 mm stapler. I proceeded to then divide the attachments starting from the terminal ileum distally until I reached the ileocolic pedicle. I thinned this extensively to allow me to clamp this in a high ligation fashion. I used the right angle clamp to clamp entire pedicle both distally and proximally. I divided the pedicle. I then doubly ligated the proximal stump of the pedicle using a sharp 2-0 and this achieved good hemostasis. I then proceeded to continue to divide the thick attached mesentery to include the lymphatic basin. I proceeded to use my point of the resection in the mid transverse colon and created a mesenteric window. I had to more lysis of adhesions in this area because of the large amounts of adherent omentum stuck to the transverse colon and the rest of the hepatic flexure. I then divided the mid part of the transverse colon using the ONI 60 mm stapler. I then proceeded to divide the attached mesentery from this segment to meet up with the divided mesentery in the right colon. Again we were mindful of including the mesenteric basin for this. Eventually we completely transected the attached mesentery and this was sent for immediate exam with the pathologist. I proceeded to then my [id number] anastomosis. I positioned the stumps of the terminal ileum and the transverse colon together at the anti mesenteric side. I made an enterotomy on the apex of each staple line. I positioned each arm of the ONI 60 mm stapler into the lumen at the anti mesenteric side. I then proceeded to make sure that there was no bowel loop or any other tissue caught within the staple line. The stapler was fired to create our sited I anastomosis. I completed the anastomosis by closing the enterotomy with a TA 60 mm stapler. I could feel the anastomosis between my thumb and forefinger this was patent and widely open. I applied a seromuscular Polysorb 3-0 stitch at the crotch of the staple line to release any tension. There was no tension however on palpation and with inspection. I inspected the staple lines and these all appear to be intact. The anastomotic site appeared viable and nonischemic. I replaced the anastomosed bowel back into the peritoneal cavity and positioned this to the right side. I made sure that there was no herniated small bowel within the mesentery defect. I pulled the omentum to overlie this anastomosis. I replaced the GelPort. I examined the peritoneum laparoscopically. We examined all 4 quadrants. There is no evidence of any bleeding in the peritoneum. I irrigated a little bit. Again the staple line appeared intact. There was no evidence of any bowel injury. There was no bleeding with laparoscopic inspection. I suctioned out the irrigant fluid. Once good hemostasis was confirmed, I proceeded to desufflate and remove the Jaspal wound retractor. I closed the fascia with a running Maxon 1 stitch. I had incorporated the umbilical hernia defect as well as epigastric defect with the closure of the fascia as primary repair. I irrigated the incisions. After closure of the fascia, examined this laparoscopically and this appeared to be intact without any bowel or omentum caught with the sutures. I therefore removed all ports and desufflated . I closed all skin incisions with skin vivien. All incisions were infiltrated with Marcaine 0.5% for postop analgesia. Dressings were applied. The procedure was completed The patient tolerated procedure well. There were no immediate complications. Initial and final counts of sponges and instruments were correct. Estimated blood loss was about 100 cc The patient was extubated without difficulty and transferred to the recovery room with stable vital signs. We received a call from the pathologist stating that immediate gross exam showed the tumor in the specimen and that the margins were clear. Colon Resection Tumor location: Right colon Extent of lymphovascular resection Right colon (cecum and ascending colon): Cecum, ascending colon and hepatic flexure were removed with the specimen Hepatic flexure: Cecum, ascending colon and hepatic flexure were removed with the specimen Transverse colon: Cecum, ascending colon and hepatic flexure were removed with the specimen General Surg. - Synoptic Notes Colon Resection Tumor location: Right colon Extent of Lymphovascular Resection: Right colon (cecum and ascending colon): Cecum, ascending colon and hepatic flexure were removed with the specimen Hepatic flexure: Cecum, ascending colon and hepatic flexure were removed with the specimen Transverse colon: Cecum, ascending colon and hepatic flexure were removed with the specimen
[2023-06-14] MEDS: Acetaminophen 1,000 MG/100 ML PIGGYBACK 400 MG IV ×2 (13:03→17:23)
[2023-06-14 14:06] LABS: Glucose, Whole Blood 223 mg/dL (60-115)
[2023-06-14] MEDS: Insulin Lispro 100 UNIT/ML 3 ML VIAL SUBCUT ×3 (14:13→21:32)
--- NOTE | 2023-06-14 15:28 | PM.EVENT ---
Event Note Date of Service: 06/14/23 Event Note: Seen earlier this afternoon for a postop check He says he is comfortable and has minimal pain Stable vital signs postoperatively Dressings dry Urine output clear Abdomen soft and benign Pain management Incentive spirometry Currently on clear liquids Family ( and daughter) updated Time Spent With Patient Time: Total time managing care of this patient today ____ minutes.
--- NOTE | 2023-06-14 15:35 | HO.PM.IMCN ---
History of Present Illness Data of Consult Service Date: 06/14/23 Requesting physician: Walker Marrero Primary Care Provider: MD DIVINA Sanon Reason for consult: medical management 77-year-old male with history of hyperlipidemia, hypertension, [id number]-rhqnfmnly type 2 diabetes, history of basal cell carcinoma face, and chronic bronchitis admitted to General surgery for management of a dental carcinoma of the colon s/p resection of the right colon with extensive lysis of adhesions with consult placed hospitalist service for medical management. He reports pain levels are well controlled. Feels some activity in the abdomen but states he has not passed gas. He has also had a few small sips of gingerale but is otherwise not consumed anything orally. Asking when the Higuera catheter will be discontinued. Denies any alcohol use, illicit drug use, or cigarette smoking. Review of Systems Review of Systems: General: No fevers, malaise, unintentional weight loss Cardiovascular: No chest pain, palpitations, or leg edema Respiratory: No shortness of breath, wheezing, cough GI: No abdominal pain, nausea, vomiting MSK: No myalgia, back pain Neuro: No headaches, weakness, paresthesias Skin: No rashes or lesions PMFSH Medical History White coat syndrome with hypertension Pneumonia Chronic bronchitis Incisional hernia Vitamin B 12 deficiency Obesity Iron deficiency anemia Vitamin D deficiency Hyperlipidemia Cancer of skin of face Hx of pilonidal cyst History of anal fissures Diabetes HTN (hypertension) Surgical History History of surgery Hx of endoscopic retrograde cholangiopancreatography Hx of colonoscopy History of esophagogastroduodenoscopy (EGD) History of cataract surgery History of surgical removal of pilonidal cyst Hx of appendectomy Hx of cholecystectomy Social History Household Members: Significant Other Housing: House Are you a primary home care nurse to a significant other at home: No Do you presently have visiting nurse or other home services: No Alcohol intake: unknown Patient Tobacco Use Status: Never used Tobacco service: Yes Current occupational status: retired Meds Allergies Allergy/AdvReac Type Severity Reaction Status Date / Time No Known Allergies Allergy Verified 06/14/23 06:19 [No Known Allergies*] Active Medications: Current Medications Amlodipine Besylate (Amlodipine Besylate 10 Mg Tablet) 10 mg PO DAILY [facility]; Protocol Carvedilol (Carvedilol 25 Mg Tablet) 25 mg PO BID [facility]; Protocol Cyanocobalamin (Cyanocobalamin (Vitamin B-12) 500 Mcg Tablet) 500 mcg PO DAILY [facility] Dextrose (Dextrose 50 % 25 Gm/50 Ml Syringe) 25 gm IVPUSH Q15M PRN; Protocol PRN Reason: per Hypoglycemia Standing Ord. Glucose (Glucose Gel 15 Gm Gel..Gram.) 15 gm PO Q15M PRN; Protocol PRN Reason: per Hypoglycemia Standing Ord. Heparin Sodium (Porcine) (Heparin Sodium,Porcine 5,000 Unit/Ml Vial) 5,000 unit SUBCUT Q8H [facility] Acetaminophen (Ofirmev) 1,000 mg in 100 mls @ 400 mls/hr IV Q6H [facility] Last Infusion: 06/14/23 13:45 Dose: Infused Insulin Human Lispro (Insulin Lispro 100 Unit/Ml 3 Ml Vial) 0 unit SUBCUT QIDACHS [facility]; Protocol Last Admin: 06/14/23 14:14 Dose: Not Given Lisinopril (Lisinopril 40 Mg Tablet) 40 mg PO DAILY [facility]; Protocol Morphine Sulfate (Morphine Sulfate 4 Mg/Ml Cartridge) 4 mg IVPUSH Q4H PRN; Protocol PRN Reason: Pain, Severe (Pain Scale 7-10) Oxycodone HCl (Oxycodone Hcl Immed Release 5 Mg Tablet) 5 mg PO Q4H PRN PRN Reason: Pain, Moderate(Pain Scale 4-6) Sodium Chloride (0.9 % Sodium Chloride Flush 3 Ml Syringe) 3 ml IVFLUSH QSHIFT [facility] Last Admin: 06/14/23 14:16 Dose: Not Given Home Medications Medication Instructions Recorded Confirmed Last Taken Type amlodipine 10 mg tablet 10 mg PO DAILY 04/24/23 06/14/23 06/14/23 04:45 History cyanocobalamin (vitamin B-12) 500 500 mcg PO DAILY 04/24/23 06/14/23 06/13/23 History mcg tablet docusate sodium 100 mg capsule 100 mg PO BID PRN Constipation 04/24/23 06/14/23 06/13/23 History dulaglutide 1.5 mg/0.5 mL 1.5 mg subcut FR 04/24/23 06/14/23 06/02/23 History subcutaneous pen injector lisinopril 40 mg tablet 40 mg PO DAILY 04/24/23 06/14/23 06/13/23 History metformin 500 mg tablet,extended 500 mg PO BEDTIME 04/24/23 06/14/23 06/13/23 23:00 History release 24 hr carvedilol 25 mg tablet 25 mg PO BID 06/07/23 06/14/23 06/14/23 04:45 History ferrous sulfate 325 mg (65 mg 325 mg PO DAILY 06/07/23 06/14/23 06/13/23 History iron) tablet Physical Exam Vital Signs and Narrative: Vital Signs: Last Vital Signs Temp 97.5 F 06/14/23 12:15 Pulse 63 06/14/23 12:15 Resp 17 06/14/23 12:15 BP 134/63 06/14/23 12:15 Pulse Ox 93 06/14/23 12:15 O2 Del Method Nasal Cannula 06/14/23 12:15 O2 Flow Rate 2.0 06/14/23 12:15 BMI result Body Mass Index 27.8 Constitutional - Awake and Alert, No apparent distress Eyes - PERRLA, EOMI Cardiovascular - S1S2, RRR, No edema Respiratory - Normal lung expansion, Normal respiratory effort, No respiratory distress, CTA bilaterally Gastrointestinal - +BS Extremities - no calf tenderness bilaterally, no swelling Skin - Warm/Dry Neurological - Alert & oriented x3 Psychological - Appropriate affect Results Labs 06/08/23 13:09 06/08/23 13:09 Labs: Laboratory Results - last 24 hr 06/14/23 06/14/23 06:17 14:02 POC Glucose 162 H 223 H Assessment and Plan (1) Adenocarcinoma of colon: Status: Acute Plan 77-year-old male with history of hyperlipidemia, hypertension, [id number]-gmyvnioti type 2 diabetes, history of basal cell carcinoma face, and chronic bronchitis admitted to General surgery for management of a dental carcinoma of the colon s/p resection of the right colon with extensive lysis of adhesions with consult placed hospitalist service for medical management. # addendum carcinoma colon -s/p resection right colon with extensive lysis of adhesions pod 0 -plan per General surgery # ftq-vumekpp-ptwsdlcyr type 2 diabetes -hold metformin and Trulicity -POC glucose -advance to diabetic diet per General surgery -Humalog on sliding scale # hypertension -blood pressure is reasonably controlled -resume antihypertensives a.m. #Chronic bronchitis -no acute exacerbation, has chronic cough unchanged -albuterol p.r.n. Thank you for allowing me to participate in this consult. Signing off at this time. Please do not hesitate to call for further questions or acute medical issues Time Spent With Patient Time: Total time managing care of this patient today ____ minutes.
[2023-06-14 16:32] LABS: Glucose, Whole Blood 152 mg/dL (60-115)
[2023-06-14 21:30] LABS: Glucose, Whole Blood 214 mg/dL (60-115)
[2023-06-14] MEDS: carvediloL 25 MG TABLET PO (21:32)
[2023-06-14] MEDS: 0.9 % Sodium Chloride Flush 3 ML SYRINGE IVFLUSH (21:32)
[2023-06-15] MEDS: Acetaminophen 1,000 MG/100 ML PIGGYBACK 400 MG IV ×4 (00:07→17:21)
[2023-06-15 04:00] VITALS: BP 119/66; PULSE 70; RESP 16; TEMP 36.8; O2SAT 92
[2023-06-15 06:14] LABS: MANUAL DIFF FLAG NO
[2023-06-15 06:31] LABS: Anion Gap 12 (12-20); Blood Urea Nitrogen 24 mg/dL (9-16); Calcium 8.5 mg/dL (8.4-10.2); Carbon Dioxide 24 mmol/L (22-29); Chloride 107 mmol/L (96-108); Creatinine Clr Calc Pharmacy 52.8; Estimated Glomerular Filt Rate 51; Glucose Fasting 187 mg/dL (60-99); Potassium 4.9 mmol/L (3.3-5.1); Sodium 138 mmol/L (135-145)
[2023-06-15 06:40] LABS: Basophils Percent Auto 0.3 % (0-2); Eosinophils Percent Auto 0.1 % (0-4); Hemoglobin 7.7 g/dl (14.0-18.0); Imm Gran Abs Auto 0.06 X10*3/uL (0.00-0.03); Imm Gran Pct Auto 0.5 % (0.0-0.4); Lymphocytes Absolute Auto 1.5 X10*3/uL (1.2-4.9); Lymphocytes Percent Auto 12.6 % (20-40); Mean Corpuscular HGB Conc 30.8 g/dl (31.0-36.0); Mean Corpuscular Hemoglobin 24.4 pg (27.0-33.0); Mean Corpuscular Volume 79.1 fL (80.0-98.0); Mean Platelet Volume 10.3 fL (9.4-12.4); Monocytes Absolute Auto 1.1 X10*3/uL (0.1-1.2); Monocytes Percent Auto 9.2 % (2-11); Neutrophils Absolute Auto 9.4 x10*3/uL (2.0-8.3); Neutrophils Percent Auto 77.3 % (45-73); Platelet Count 302 X10*3/uL (160-400); Red Blood Count 3.16 X10*6/uL (4.60-5.80); Red Cell Distribution Width 17.9 % (11.0-16.0); White Blood Count 12.1 X10*3/uL (4.8-10.8)
--- NOTE | 2023-06-15 07:34 | P.PNGS_ITS ---
Subjective Subjective Date of Service: 06/15/23 <Jessica Charles PA-C - Last Filed: 06/15/23 07:41> 06/15/23 <Walker Marrero MD - Last Filed: 06/15/23 08:22> Interval history: Feels well this morning. Denies any abdominal pain. Has only been receiving IV tylenol. Tolerating clear liquids but has not had much. Denies flatus. Higuera removed last night, voiding on own. Has been OOB and ambulating. <Jessica Charles PA-C - Last Filed: 06/15/23 07:41> Physical Exam 2 Vital Signs: Vital Signs: Last Vital Signs Temp 98.2 F 06/15/23 04:00 Pulse 70 06/15/23 04:00 Resp 16 06/15/23 04:00 BP 119/66 06/15/23 04:00 Pulse Ox 92 06/15/23 04:00 O2 Del Method Room Air 06/15/23 04:00 O2 Flow Rate 2.0 06/14/23 12:15 BMI result Body Mass Index 27.8 <Jessica Charles PA-C - Last Filed: 06/15/23 07:41> Const: General: comfortable, no acute distress and alert <SHAMIKA Mendez Last Filed: 06/15/23 07:41> Orientation/consciousness: patient oriented x3 <Jessica Charles PA-C - Last Filed: 06/15/23 07:41> Resp: Effort & Inspection: normal respiratory effort <Jessica Charles PA-C - Last Filed: 06/15/23 07:41> GI: Inspection: Yes distended (mildly) and Yes incision (dressings c/d/i) <Jessica Charles PA-C - Last Filed: 06/15/23 07:41> Palpation (GI): Soft to palpation, Tenderness to palpation present (GI), no guarding and not rigid <SHAMIKA Mendez Last Filed: 06/15/23 07:41> Skin: General skin exam: no rashes or lesions noted <SHAMIKA Mendez Last Filed: 06/15/23 07:41> Neuro: General: patient oriented x3 and moves all extremities <Jessica Charles PA-C - Last Filed: 06/15/23 07:41> Objective Data Active Medications Amlodipine Besylate (Amlodipine Besylate 10 Mg Tablet) 10 mg PO DAILY [facility]; Protocol Carvedilol (Carvedilol 25 Mg Tablet) 25 mg PO BID [facility]; Protocol Last Admin: 06/14/23 21:32 Dose: 25 mg Documented By: SAAD Cyanocobalamin (Cyanocobalamin (Vitamin B-12) 500 Mcg Tablet) 500 mcg PO DAILY [facility] Dextrose (Dextrose 50 % 25 Gm/50 Ml Syringe) 25 gm IVPUSH Q15M PRN; Protocol PRN Reason: per Hypoglycemia Standing Ord. Glucose (Glucose Gel 15 Gm Gel..Gram.) 15 gm PO Q15M PRN; Protocol PRN Reason: per Hypoglycemia Standing Ord. Heparin Sodium (Porcine) (Heparin Sodium,Porcine 5,000 Unit/Ml Vial) 5,000 unit SUBCUT Q8H [facility] Acetaminophen (Ofirmev) 1,000 mg in 100 mls @ 400 mls/hr IV Q6H [facility] Last Infusion: 06/15/23 06:01 Dose: Infused Documented By: SAAD Insulin Human Lispro (Insulin Lispro 100 Unit/Ml 3 Ml Vial) 0 unit SUBCUT QIDACHS [facility]; Protocol Last Admin: 06/14/23 21:32 Dose: 4 unit Documented By: SAAD Lisinopril (Lisinopril 40 Mg Tablet) 40 mg PO DAILY [facility]; Protocol Morphine Sulfate (Morphine Sulfate 4 Mg/Ml Cartridge) 4 mg IVPUSH Q4H PRN; Protocol PRN Reason: Pain, Severe (Pain Scale 7-10) Oxycodone HCl (Oxycodone Hcl Immed Release 5 Mg Tablet) 5 mg PO Q4H PRN PRN Reason: Pain, Moderate(Pain Scale 4-6) Sodium Chloride (0.9 % Sodium Chloride Flush 3 Ml Syringe) 3 ml IVFLUSH QSHIFT [facility] Last Admin: 06/14/23 21:32 Dose: 3 ml Documented By: SAAD <Jessica Charles PA-C - Last Filed: 06/15/23 07:41> Labs CBC & Chem 7: 06/15/23 05:40 06/15/23 05:40 <Jessica Charles PA-C - Last Filed: 06/15/23 07:41> Labs: Laboratory Results - last 24 hr 06/14/23 06/14/23 06/14/23 14:02 16:28 21:26 MCV MCH MCHC RDW Plt Count MPV Immature Gran % (Auto) Neut % (Auto) Lymph % (Auto) [place] % (Auto) Eos % (Auto) Baso % (Auto) Lymph # (Auto) [place] # (Auto) Eos # (Auto) Baso # (Auto) Abs Immat Gran (auto) Absolute Neuts (auto) Absolute Nucleated RBC Nucleated RBC % (auto) Anion Gap Estim Creat Clear Calc Estimated GFR POC Glucose 223 H 152 H 214 H Fasting Glucose Calcium 06/15/23 05:40 MCV 79.1 L MCH 24.4 L MCHC 30.8 L RDW 17.9 H Plt Count 302 MPV 10.3 Immature Gran % (Auto) 0.5 H Neut % (Auto) 77.3 H Lymph % (Auto) 12.6 L [place] % (Auto) 9.2 Eos % (Auto) 0.1 Baso % (Auto) 0.3 Lymph # (Auto) 1.5 [place] # (Auto) 1.1 Eos # (Auto) 0.0 Baso # (Auto) 0.0 Abs Immat Gran (auto) 0.06 H Absolute Neuts (auto) 9.4 H Absolute Nucleated RBC 0.000 Nucleated RBC % (auto) 0.0 Anion Gap 12 Estim Creat Clear Calc 52.8 Estimated GFR 51 POC Glucose Fasting Glucose 187 H Calcium 8.5 D <Jessica Charles PA-C - Last Filed: 06/15/23 07:41> Procedures Date of Service Date of Service: 06/15/23 <Jessica Charles PA-C - Last Filed: 06/15/23 07:41> 06/15/23 <Walker Marrero MD - Last Filed: 06/15/23 08:22> Progress Note: A&P Assessment and plan (1) Adenocarcinoma of colon: Status: Acute <Jessica Charles PA-C - Last Filed: 06/15/23 07:41> Assessment and Plan: Feels well Denies significant pain Tolerating clear liquids No flatus yet Voiding freely Abdomen soft and benign with appropriate tenderness Ambulate Incentive spirometry Seen and examined independently <Walker Marrero MD - Last Filed: 06/15/23 08:22> (2) S/P right colectomy: Status: Acute <Jessica Charles PA-C - Last Filed: 06/15/23 07:41> Assessment and Plan: 77 year old male POD #1 s/p GEGE right colectomy, KEYSHA, repair of incisional hernias x2 for right colon CA. Doing well post op, good pain control. Abd benign. Cont clear liquids. Encouraged OOB/ambulation and IS use. Await pathology. <Jessica Charles PA-C - Last Filed: 06/15/23 07:41> Time Spent With Patient Time: Total time managing care of this patient today ____ minutes. <Jessica Chrales PA-C - Last Filed: 06/15/23 07:41> Quality Stroke Does the patient have a stroke diagnosis?: No <Jessica Charles PA-C - Last Filed: 06/15/23 07:41> VTE Prior VTE?: No <Jessica Charles PA-C - Last Filed: 06/15/23 07:41> VTE Risk Level:: Medical - moderate - high <Jessica Charles PA-C - Last Filed: 06/15/23 07:41> VTE Device Contraindication: N/A - Device Ordered <Jessica Charles PA-C - Last Filed: 06/15/23 07:41> VTE Drug Contraindication: N/A - Med Ordered <Jessica Charles PA-C - Last Filed: 06/15/23 07:41>
[2023-06-15 07:37] VITALS: BP 124/57; PULSE 68; RESP 20; TEMP 37.1; O2SAT 93
[2023-06-15 07:43] LABS: Glucose, Whole Blood 177 mg/dL (60-115)
[2023-06-15] MEDS: lisinopriL 40 MG TABLET PO (08:18)
[2023-06-15] MEDS: Cyanocobalamin (Vitamin B-12) 500 MCG TABLET PO (08:19)
[2023-06-15] MEDS: amLODIPine Besylate 10 MG TABLET PO (08:19)
[2023-06-15] MEDS: Insulin Lispro 100 UNIT/ML 3 ML VIAL SUBCUT ×3 (08:19→21:00)
[2023-06-15] MEDS: carvediloL 25 MG TABLET PO ×2 (08:19→19:59)
[2023-06-15] MEDS: 0.9 % Sodium Chloride Flush 3 ML SYRINGE IVFLUSH ×3 (08:20→20:00)
[2023-06-15 11:26] LABS: Glucose, Whole Blood 169 mg/dL (60-115)
--- NOTE | 2023-06-15 11:55 | MHC.CM.PN ---
met with pt and his family he lives with his they viji no servies prior to admission and do not abnticapate needing services when dcd dc plan home no servies
--- NOTE | 2023-06-15 14:50 | HO.POSTANES ---
Post Anesthesia Evaluation Post Anesthesia Evaluation Date of Service: 06/15/23 Vital Signs: Vital Signs Temp Pulse Resp BP Pulse Ox O2 Del Method 06/15/23 07:37 98.8 F 68 20 124/57 L 93 Room Air 06/15/23 04:00 98.2 F 70 16 119/66 92 Room Air Anesthesia: General Endotracheal-GETA Mental Status: Awake Pain Control: Satisfactory Nausea/Vomiting: None Hydration: Adequate Anesthesia-Related Issues: No Anes. Related Issues
[2023-06-15 15:19] VITALS: BP 108/54; PULSE 68; RESP 20; TEMP 36.6; O2SAT 94
[2023-06-15 16:15] LABS: Glucose, Whole Blood 149 mg/dL (60-115)
[2023-06-15 19:53] VITALS: BP 130/62; PULSE 75; RESP 18; TEMP 37.1; O2SAT 94
[2023-06-15] MEDS: Heparin Sodium,Porcine 5,000 UNIT/ML VIAL 5000 UNIT SUBCUT (19:59)
[2023-06-15 20:47] LABS: Glucose, Whole Blood 162 mg/dL (60-115)
[2023-06-16] MEDS: Acetaminophen 1,000 MG/100 ML PIGGYBACK 400 MG IV ×2 (00:03→05:56)
[2023-06-16 03:36] VITALS: BP 147/67; PULSE 90; RESP 18; TEMP 36.9; O2SAT 94
[2023-06-16] MEDS: Heparin Sodium,Porcine 5,000 UNIT/ML VIAL 5000 UNIT SUBCUT ×3 (04:10→20:15)
[2023-06-16 07:30] VITALS: BP 124/60; PULSE 76; RESP 20; TEMP 36.9; O2SAT 94
[2023-06-16 07:45] LABS: Glucose, Whole Blood 167 mg/dL (60-115)
[2023-06-16] MEDS: lisinopriL 40 MG TABLET PO (07:52)
[2023-06-16] MEDS: amLODIPine Besylate 10 MG TABLET PO (07:52)
[2023-06-16] MEDS: carvediloL 25 MG TABLET PO ×2 (07:52→20:15)
[2023-06-16] MEDS: Cyanocobalamin (Vitamin B-12) 500 MCG TABLET PO (07:52)
[2023-06-16] MEDS: 0.9 % Sodium Chloride Flush 3 ML SYRINGE IVFLUSH ×3 (07:54→23:03)
[2023-06-16] MEDS: Insulin Lispro 100 UNIT/ML 3 ML VIAL SUBCUT ×3 (08:00→16:58)
--- NOTE | 2023-06-16 08:16 | PM.PNGS ---
Subjective Subjective Date of Service: 06/16/23 <Jessica Charles PA-C - Last Filed: 06/16/23 08:19> 06/16/23 <Walker Marrero MD - Last Filed: 06/16/23 11:32> Interval history: Continues to feel well. Denies any abdominal pain and has only received IV tylenol. Tolerating clear liquids. Has passed flatus. OOB and ambulating. Would like to eat. <Jessica Charles PA-C - Last Filed: 06/16/23 08:19> Physical Exam Vital Signs: Vital Signs: Last Vital Signs Temp 98.4 F 06/16/23 07:30 Pulse 76 06/16/23 07:30 Resp 20 06/16/23 07:30 BP 124/60 06/16/23 07:30 Pulse Ox 94 06/16/23 07:30 O2 Del Method Room Air 06/16/23 07:30 O2 Flow Rate 2.0 06/14/23 12:15 BMI result Body Mass Index 27.8 <Jessica Charles PA-C - Last Filed: 06/16/23 08:19> Const: General: comfortable and no acute distress <Jessica Charles PA-C - Last Filed: 06/16/23 08:19> Orientation/consciousness: patient oriented x3 <Jessica Charles PA-C - Last Filed: 06/16/23 08:19> Resp: Effort & Inspection: normal respiratory effort <Jessica Charles PA-C - Last Filed: 06/16/23 08:19> GI: Inspection: No distended and Yes incision (clean, mild ecchymosis ) <Jessica Charles PA-C - Last Filed: 06/16/23 08:19> Palpation (GI): Soft to palpation, Tenderness to palpation present (GI) (very mild incisional), no guarding and not rigid <SHAMIKA Mendez Last Filed: 06/16/23 08:19> Skin: General skin exam: no rashes or lesions noted <SHAMIKA Mendez Last Filed: 06/16/23 08:19> Neuro: General: patient oriented x3 and moves all extremities <Jessica Charles PA-C - Last Filed: 06/16/23 08:19> Objective Data Active Medications Amlodipine Besylate (Amlodipine Besylate 10 Mg Tablet) 10 mg PO DAILY [facility]; Protocol Last Admin: 06/16/23 07:52 Dose: 10 mg Documented By: TRINO Carvedilol (Carvedilol 25 Mg Tablet) 25 mg PO BID [facility]; Protocol Last Admin: 06/16/23 07:52 Dose: 25 mg Documented By: TRINO Cyanocobalamin (Cyanocobalamin (Vitamin B-12) 500 Mcg Tablet) 500 mcg PO DAILY [facility] Last Admin: 06/16/23 07:52 Dose: 500 mcg Documented By: TRINO Dextrose (Dextrose 50 % 25 Gm/50 Ml Syringe) 25 gm IVPUSH Q15M PRN; Protocol PRN Reason: per Hypoglycemia Standing Ord. Glucose (Glucose Gel 15 Gm Gel..Gram.) 15 gm PO Q15M PRN; Protocol PRN Reason: per Hypoglycemia Standing Ord. Heparin Sodium (Porcine) (Heparin Sodium,Porcine 5,000 Unit/Ml Vial) 5,000 unit SUBCUT Q8H [facility] Last Admin: 06/16/23 04:10 Dose: 5,000 unit Documented By: SAAD Acetaminophen (Ofirmev) 1,000 mg in 100 mls @ 400 mls/hr IV Q6H [facility] Last Infusion: 06/16/23 06:24 Dose: Infused Documented By: SAAD Insulin Human Lispro (Insulin Lispro 100 Unit/Ml 3 Ml Vial) 0 unit SUBCUT QIDACHS [facility]; Protocol Last Admin: 06/16/23 08:00 Dose: 2 unit Documented By: TRINO Lisinopril (Lisinopril 40 Mg Tablet) 40 mg PO DAILY [facility]; Protocol Last Admin: 06/16/23 07:52 Dose: 40 mg Documented By: TRINO Morphine Sulfate (Morphine Sulfate 4 Mg/Ml Cartridge) 4 mg IVPUSH Q4H PRN; Protocol PRN Reason: Pain, Severe (Pain Scale 7-10) Oxycodone HCl (Oxycodone Hcl Immed Release 5 Mg Tablet) 5 mg PO Q4H PRN PRN Reason: Pain, Moderate(Pain Scale 4-6) Sodium Chloride (0.9 % Sodium Chloride Flush 3 Ml Syringe) 3 ml IVFLUSH QSHIFT [facility] Last Admin: 06/16/23 07:54 Dose: 3 ml Documented By: TRINO <Jessica Charles PA-C - Last Filed: 06/16/23 08:19> Labs CBC & Chem 7: 06/15/23 05:40 06/15/23 05:40 <Jessica Charles PA-C - Last Filed: 06/16/23 08:19> Labs: Laboratory Results - last 24 hr 06/15/23 06/15/23 06/15/23 11:22 16:12 20:33 POC Glucose 169 H 149 H 162 H 06/16/23 07:34 POC Glucose 167 H <Jessica Charles PA-C - Last Filed: 06/16/23 08:19> Procedures Date of Service Date of Service: 06/16/23 <Jessica Charles PA-C - Last Filed: 06/16/23 08:19> 06/16/23 <Walker Marrero MD - Last Filed: 06/16/23 11:32> Progress Note: A&P Assessment and plan (1) S/P right colectomy: Status: Acute <Jessica Charles PA-C - Last Filed: 06/16/23 08:19> Assessment and Plan: says he feels great minimal pain passing flatus tolerating clears abd soft incision clean and dry diet as tolerated doing well postop seen and examined independently <Walker aMrrero MD - Last Filed: 06/16/23 11:32> (2) Adenocarcinoma of colon: Status: Acute <Jessica Charles PA-C - Last Filed: 06/16/23 08:19> Assessment and Plan: 77 year old male POD #2 s/p GEGE right colectomy, KEYSHA, repair of incisional hernias x2 for right colon CA. Continues to do very well post op. Abd benign, incision clean. Will advance to a solid, diabetic diet. Encouraged OOB/ambulation and IS use. Await pathology. Likely home over the weekend if remains stable and tolerating diet. <Jessica Charles PA-C - Last Filed: 06/16/23 08:19> Time Spent With Patient Time: Total time managing care of this patient today ____ minutes. <Jessica Charles PA-C - Last Filed: 06/16/23 08:19> Quality Stroke Does the patient have a stroke diagnosis?: No <Jessica Charles PA-C - Last Filed: 06/16/23 08:19> VTE Prior VTE?: No <Jessica Charles PA-C - Last Filed: 06/16/23 08:19> VTE Risk Level:: Medical - moderate - high <Jessica Charles PA-C - Last Filed: 06/16/23 08:19> VTE Device Contraindication: N/A - Device Ordered <Jessica Charles PA-C - Last Filed: 06/16/23 08:19> VTE Drug Contraindication: N/A - Med Ordered <Jessica Charles PA-C - Last Filed: 06/16/23 08:19>
[2023-06-16 11:16] LABS: Glucose, Whole Blood 174 mg/dL (60-115)
[2023-06-16 11:27] VITALS: BP 122/60; PULSE 68; RESP 20; TEMP 36.6; O2SAT 93
[2023-06-16 15:57] VITALS: BP 145/67; PULSE 68; RESP 20; TEMP 36.5; O2SAT 94
[2023-06-16 16:04] LABS: Glucose, Whole Blood 171 mg/dL (60-115)
[2023-06-16] MEDS: ondansetron HCL 4 MG/2 ML VIAL IVPUSH (18:30)
[2023-06-16 19:20] VITALS: BP 152/71; PULSE 58; RESP 16; TEMP 36.8; O2SAT 93
[2023-06-16 19:37] LABS: Glucose, Whole Blood 144 mg/dL (60-115)
[2023-06-17 03:43] VITALS: BP 159/72; PULSE 79; RESP 16; TEMP 36.6; O2SAT 93
[2023-06-17] MEDS: Heparin Sodium,Porcine 5,000 UNIT/ML VIAL 5000 UNIT SUBCUT ×3 (04:08→21:09)
[2023-06-17 07:10] VITALS: BP 139/65; PULSE 80; RESP 18; TEMP 36.3; O2SAT 94
[2023-06-17] MEDS: 0.9 % Sodium Chloride Flush 3 ML SYRINGE IVFLUSH (07:32)
[2023-06-17] MEDS: ondansetron HCL 4 MG/2 ML VIAL IVPUSH (07:32)
[2023-06-17 07:34] LABS: Glucose, Whole Blood 182 mg/dL (60-115)
[2023-06-17] MEDS: Insulin Lispro 100 UNIT/ML 3 ML VIAL SUBCUT ×4 (08:39→21:10)
[2023-06-17] MEDS: Cyanocobalamin (Vitamin B-12) 500 MCG TABLET PO (08:39)
[2023-06-17] MEDS: lisinopriL 40 MG TABLET PO (08:39)
[2023-06-17] MEDS: amLODIPine Besylate 10 MG TABLET PO (08:39)
[2023-06-17] MEDS: carvediloL 25 MG TABLET PO ×2 (08:39→21:10)
--- NOTE | 2023-06-17 10:08 | PM.PNGS ---
Subjective Subjective Date of Service: 06/18/23 Interval history: Had some nausea overnight she was started on regular diet 1 small episode of emesis this morning Otherwise passing flatus States he has been ambulating Denies any significant abdominal pain Physical Exam Vital Signs: Vital Signs: Last Vital Signs Temp 97.4 F 06/17/23 07:10 Pulse 80 06/17/23 07:10 Resp 18 06/17/23 07:10 BP 139/65 06/17/23 07:10 Pulse Ox 94 06/17/23 07:10 O2 Del Method Room Air 06/17/23 07:10 O2 Flow Rate 2.0 06/14/23 12:15 BMI result Body Mass Index 27.8 Const: General: comfortable and no acute distress Resp: Effort & Inspection: normal respiratory effort Cardio: Rate: regular rate GI: Other: Mildly distended, no guarding, no rebound, no significant tenderness, incisions clean and dry Objective Data Active Medications Acetaminophen (Acetaminophen 325 Mg Tablet) 650 mg PO Q6H PRN PRN Reason: fever, pain Amlodipine Besylate (Amlodipine Besylate 10 Mg Tablet) 10 mg PO DAILY [facility]; Protocol Last Admin: 06/17/23 08:39 Dose: 10 mg Documented By: NEHEMIAS Carvedilol (Carvedilol 25 Mg Tablet) 25 mg PO BID [facility]; Protocol Last Admin: 06/17/23 08:39 Dose: 25 mg Documented By: NEHEMIAS Cyanocobalamin (Cyanocobalamin (Vitamin B-12) 500 Mcg Tablet) 500 mcg PO DAILY [facility] Last Admin: 06/17/23 08:39 Dose: 500 mcg Documented By: NEHEMIAS Dextrose (Dextrose 50 % 25 Gm/50 Ml Syringe) 25 gm IVPUSH Q15M PRN; Protocol PRN Reason: per Hypoglycemia Standing Ord. Glucose (Glucose Gel 15 Gm Gel..Gram.) 15 gm PO Q15M PRN; Protocol PRN Reason: per Hypoglycemia Standing Ord. Heparin Sodium (Porcine) (Heparin Sodium,Porcine 5,000 Unit/Ml Vial) 5,000 unit SUBCUT Q8H [facility] Last Admin: 06/17/23 04:08 Dose: 5,000 unit Documented By: MELITA Insulin Human Lispro (Insulin Lispro 100 Unit/Ml 3 Ml Vial) 0 unit SUBCUT QIDACHS [facility]; Protocol Last Admin: 06/17/23 08:39 Dose: 2 unit Documented By: NEHEMIAS Lisinopril (Lisinopril 40 Mg Tablet) 40 mg PO DAILY [facility]; Protocol Last Admin: 06/17/23 08:39 Dose: 40 mg Documented By: NEHEMIAS Morphine Sulfate (Morphine Sulfate 4 Mg/Ml Cartridge) 4 mg IVPUSH Q4H PRN; Protocol PRN Reason: Pain, Severe (Pain Scale 7-10) Ondansetron HCl (Ondansetron Hcl 4 Mg/2 Ml Vial) 4 mg IVPUSH Q6H PRN PRN Reason: Nausea Last Admin: 06/17/23 07:32 Dose: 4 mg Documented By: NEHEMIAS Oxycodone HCl (Oxycodone Hcl Immed Release 5 Mg Tablet) 5 mg PO Q4H PRN PRN Reason: Pain, Moderate(Pain Scale 4-6) Sodium Chloride (0.9 % Sodium Chloride Flush 3 Ml Syringe) 3 ml IVFLUSH QSHIFT [facility] Last Admin: 06/17/23 07:32 Dose: 3 ml Documented By: NEHEMIAS Labs 06/15/23 05:40 06/15/23 05:40 Labs: Laboratory Results - last 24 hr 06/16/23 06/16/23 06/16/23 11:09 16:00 18:57 POC Glucose 174 H 171 H 144 H 06/17/23 07:13 POC Glucose 182 H Procedures Date of Service Date of Service: 06/18/23 Progress Note: A&P Assessment and plan (1) S/P right colectomy: Status: Acute Assessment and Plan: Had some nausea after starting on regular diet Likely with some degree of ileus Instructed him to limit oral intake if he has nausea Encouraged to ambulate more Will restart some IV fluids Voiding freely Abdomen very soft and benign Time Spent With Patient Time: Total time managing care of this patient today ____ minutes. Quality Stroke Does the patient have a stroke diagnosis?: No VTE Prior VTE?: No VTE Risk Level:: Medical - moderate - high VTE Device Contraindication: N/A - Device Ordered VTE Drug Contraindication: N/A - Med Ordered
[2023-06-17 11:28] LABS: Glucose, Whole Blood 153 mg/dL (60-115)
[2023-06-17] MEDS: Lactated Ringers 500 ML 60 ML IV (12:07)
[2023-06-17 15:11] VITALS: BP 122/60; PULSE 75; RESP 18; TEMP 36.6; O2SAT 92
[2023-06-17 16:28] LABS: Glucose, Whole Blood 168 mg/dL (60-115)
[2023-06-17 19:27] VITALS: BP 122/60; PULSE 84; RESP 14; TEMP 36.3; O2SAT 92
[2023-06-17 20:08] LABS: Glucose, Whole Blood 176 mg/dL (60-115)
[2023-06-18] MEDS: 0.9 % Sodium Chloride Flush 3 ML SYRINGE IVFLUSH ×2 (00:15→08:31)
[2023-06-18 02:59] VITALS: BP 133/61; PULSE 95; RESP 14; TEMP 37.1; O2SAT 92
[2023-06-18] MEDS: Heparin Sodium,Porcine 5,000 UNIT/ML VIAL 5000 UNIT SUBCUT ×2 (05:06→12:13)
[2023-06-18 07:37] VITALS: BP 113/56; PULSE 65; RESP 18; TEMP 36.4; O2SAT 94
[2023-06-18 07:44] LABS: Glucose, Whole Blood 184 mg/dL (60-115)
[2023-06-18] MEDS: carvediloL 25 MG TABLET PO (08:31)
[2023-06-18] MEDS: amLODIPine Besylate 10 MG TABLET PO (08:31)
[2023-06-18] MEDS: Cyanocobalamin (Vitamin B-12) 500 MCG TABLET PO (08:31)
[2023-06-18] MEDS: lisinopriL 40 MG TABLET PO (08:31)
[2023-06-18] MEDS: Insulin Lispro 100 UNIT/ML 3 ML VIAL SUBCUT ×2 (08:31→12:13)
--- NOTE | 2023-06-18 09:57 | P.PNGS_ITS ---
Subjective Subjective Date of Service: 06/20/23 Interval history: feels better nausea much improved continues to pass flatus consistently says he is comfortable has been ambulating Physical Exam 2 Vital Signs: Vital Signs: Last Vital Signs Temp 97.6 F 06/18/23 07:37 Pulse 65 06/18/23 07:37 Resp 18 06/18/23 07:37 BP 113/56 L 06/18/23 07:37 Pulse Ox 94 06/18/23 07:37 O2 Del Method Room Air 06/18/23 07:37 O2 Flow Rate 2.0 06/14/23 12:15 BMI result Body Mass Index 27.8 Const: General: comfortable and no acute distress Resp: Effort & Inspection: normal respiratory effort Cardio: Rate: regular rate GI: Other: incisions clean and dry Palpation (GI): Soft to palpation, not firm, nontender and no guarding Objective Data Active Medications Acetaminophen (Acetaminophen 325 Mg Tablet) 650 mg PO Q6H PRN PRN Reason: fever, pain Amlodipine Besylate (Amlodipine Besylate 10 Mg Tablet) 10 mg PO DAILY [facility]; Protocol Last Admin: 06/18/23 08:31 Dose: 10 mg Documented By: JOSEPHINE Carvedilol (Carvedilol 25 Mg Tablet) 25 mg PO BID [facility]; Protocol Last Admin: 06/18/23 08:31 Dose: 25 mg Documented By: JOSEPHINE Cyanocobalamin (Cyanocobalamin (Vitamin B-12) 500 Mcg Tablet) 500 mcg PO DAILY [facility] Last Admin: 06/18/23 08:31 Dose: 500 mcg Documented By: JOSEPHINE Dextrose (Dextrose 50 % 25 Gm/50 Ml Syringe) 25 gm IVPUSH Q15M PRN; Protocol PRN Reason: per Hypoglycemia Standing Ord. Glucose (Glucose Gel 15 Gm Gel..Gram.) 15 gm PO Q15M PRN; Protocol PRN Reason: per Hypoglycemia Standing Ord. Heparin Sodium (Porcine) (Heparin Sodium,Porcine 5,000 Unit/Ml Vial) 5,000 unit SUBCUT Q8H [facility] Last Admin: 06/18/23 05:06 Dose: 5,000 unit Documented By: MELITA Insulin Human Lispro (Insulin Lispro 100 Unit/Ml 3 Ml Vial) 0 unit SUBCUT QIDACHS [facility]; Protocol Last Admin: 06/18/23 08:31 Dose: 2 unit Documented By: JOSEPHINE Lisinopril (Lisinopril 40 Mg Tablet) 40 mg PO DAILY [facility]; Protocol Last Admin: 06/18/23 08:31 Dose: 40 mg Documented By: JOSEPHINE Morphine Sulfate (Morphine Sulfate 4 Mg/Ml Cartridge) 4 mg IVPUSH Q4H PRN; Protocol PRN Reason: Pain, Severe (Pain Scale 7-10) Ondansetron HCl (Ondansetron Hcl 4 Mg/2 Ml Vial) 4 mg IVPUSH Q6H PRN PRN Reason: Nausea Last Admin: 06/17/23 07:32 Dose: 4 mg Documented By: NEHEMIAS Oxycodone HCl (Oxycodone Hcl Immed Release 5 Mg Tablet) 5 mg PO Q4H PRN PRN Reason: Pain, Moderate(Pain Scale 4-6) Sodium Chloride (0.9 % Sodium Chloride Flush 3 Ml Syringe) 3 ml IVFLUSH QSHIFT [facility] Last Admin: 06/18/23 08:31 Dose: 3 ml Documented By: JOSEPHINE Labs 06/15/23 05:40 06/15/23 05:40 Labs: Laboratory Results - last 24 hr 06/17/23 06/17/23 06/17/23 11:22 16:21 20:01 POC Glucose 153 H 168 H 176 H 06/18/23 07:40 POC Glucose 184 H Procedures Date of Service Date of Service: 06/20/23 Progress Note: A&P Assessment and plan (1) S/P right colectomy: Status: Acute Assessment and Plan: doing well nausea better tolerating oral intake no BMs but passing flatus well abdomen very soft and benign clinically looks well likely home today discharge instructions reinforced with patient Time Spent With Patient Time: Total time managing care of this patient today ____ minutes. Quality Stroke Does the patient have a stroke diagnosis?: No VTE Prior VTE?: No VTE Risk Level:: Medical - moderate - high VTE Device Contraindication: N/A - Device Ordered VTE Drug Contraindication: N/A - Med Ordered
[2023-06-18 11:16] LABS: Glucose, Whole Blood 183 mg/dL (60-115)
--- NOTE | 2023-06-18 14:38 | PM.EVENT ---
Event Note Date of Service: 06/18/23 Event Note: feels well tolerating oral intake passing flatus well abd soft, nondistended looks comfortable will dc home instructions discussed ffup in office Time Spent With Patient Time: Total time managing care of this patient today ____ minutes.
--- NOTE | 2023-06-19 10:20 | P.DS_ITS ---
DS: Providers Provider Date of Service: 06/18/23 Date of admission: 06/14/23 07:21 Primary care physician: Ibis Sierra MD Attending physician on admission: Walker Marrero Consults: 06/14/23 13:52 Consult to Hospitalist Routine Comment: Consulting Provider: Hospitalist Reason For Exam: htn, DM Attending physician on discharge: Walker Marrero DS: Diagnosis Discharge Diagnosis (1) S/P right colectomy: Status: Acute DS: Summary Hospital Course Hospital Course: HPI AT ADMISSION: 77-year-old male referred for a colon cancer. He had undergon e colonoscopy last 04/26/2023 because of anemia. His hemoglobin in February 2023 was 8 and previously this has been within normal. He had described having some fatigability around that time. He was started on iron pills. His colonoscopy last April 26, 2023 showed a lesion in the right colon and biopsies of this had shown an adenocarcinoma. He was therefore referred to me. He otherwise denies any GI complaints. He says he does not have any abdominal pain. He has good bowel movements. He denies any family history of colon cancer. He states that he now feels much better after he had been started on iron pills. HOSPITAL COURSE: On 06/14/23, hand assisted laparoscopic right colon resection, with extensive lysis of adhesions, repair of incisional hernias x2 was performed by Dr. Marrero without complication. The patient tolerated the procedure well and was admitted to the medical/surgical floor for observation. Hospitalist consult was obtained for medical management. He had an uncomplicated recovery course. His us was removed on POD #1. He was ambulated. He was kept on clear liquids until he began passing flatus on POD #2 and then was advanced to a low residue diet. He however experienced some nausea and vomiting with this which resolved the following day. His pain remained well controlled with little narcotics. On the day of discharge, he was tolerating a solid diet without nausea or vomiting. He was passing continuous flatus. He was OOB and ambulating without difficulty. His pain was minimal. His abdomen was benign with clean incisions. He was discharged to home on 06/18/23 in stable condition. He is to follow up in the office in 2 weeks. Status at Discharge Functional status at discharge: independent ambulation Overall status at discharge: patient is progressing back to baseline Time Spent with Patient Time attestation: Total time managing care of this patient today ____ minutes. Discharge coordination time: Less than 30 minutes Quality: Safe Use of Opioids Does Pt have an Active Cancer Diagnosis on the Problem List?: Yes Opioid Measure Date for [facility] Report: 05/20/23 Opioid Measure Time for [facility] Report: 10:20 Quality: Stroke Does the patient have a stroke diagnosis?: No Physical Exam Vital Signs: Vital Signs: Last Vital Signs Temp 97.6 F 06/18/23 07:37 Pulse 65 06/18/23 07:37 Resp 18 06/18/23 07:37 BP 113/56 L 06/18/23 07:37 Pulse Ox 94 06/18/23 07:37 O2 Del Method Room Air 06/18/23 07:37 O2 Flow Rate 2.0 06/14/23 12:15 BMI result Body Mass Index 27.8 Const: General: comfortable and no acute distress Orientation/consciousness: patient oriented x3 GI: Inspection: No distended and Yes incision (CLEAN) Palpation (GI): Soft to palpation, Tenderness to palpation present (GI), no guarding and not rigid Neuro: General: patient oriented x3 DS: Data Data Completed and Pending Pending studies at discharge: Pending at discharge 06/14/23 09:44 Surgical [PTH] Urgent Labs on day of discharge: Laboratory Results - last 24 hr 06/18/23 11:08 POC Glucose 183 H Discharge Plan Discharge Anticipated Discharge Date/Time: 06/17/23 14:09 Patient Disposition: Home, Self-Care Discharge Diagnosis: s/p right colectomy Referrals: Walker Marrero MD [Physician] - 2 Weeks Discharge Medications: New oxycodone-acetaminophen [Percocet] 5-325 mg tablet 1 tab PO Q4-6H PRN (Reason: pain) Qty: 20 0RF Rx Instructions: Partial Fill upon patient request. Continued cyanocobalamin (vitamin B-12) 500 mcg Tablet 500 mcg PO DAILY amlodipine 10 mg Tablet 10 mg PO DAILY docusate sodium 100 mg Capsule 100 mg PO BID PRN (Reason: Constipation) lisinopril 40 mg Tablet 40 mg PO DAILY metformin 500 mg Tablet Extended Release 24 Hr 500 mg PO BEDTIME dulaglutide 1.5 mg/0.5 mL Pen Injector 1.5 mg SUBCUT FR carvedilol 25 mg Tablet 25 mg PO BID Rx Instructions: must administer with a meal/food ferrous sulfate 325 mg (65 mg iron) Tablet 325 mg PO DAILY Discharge Orders: Discharge Order (Routine); Ordered 06/18/23 Ordered By: Walker Marrero Diet: Diabetic diet Activity on Discharge: No heavy lifting Stand Alone Forms: Patient Portal Discharge page Activity Restrictions/Additional Instructions: If the incision area is tender, you may apply an ice pack for short intervals (No more than 20 minutes on, followed by at least 20 minutes off). Do not apply heat. Do not use creams, lotions, or topical antibiotics. These can cause infection or allergic reaction. Ok to shower Follow up in office with Dr. Marrero in 2 weeks. ([phone]) No heavy lifting (>10-20lbs) or strenuous activity! Call Your Doctor If: -Your temperature exceeds 101.5? F -You experience excessive pain or swelling -You have an unexpected reaction to medication -You have excessive bleeding -You experience continued vomiting/nausea -Your incision begins to separate -Your incision shows signs of infection such as increased redness, swelling, excessive pain, drainage (light blood or clear fluid is normal) or heat Care Plan Goals: Return to baseline health and resume normal activities following recovery period. Health Concerns: colon CA diabetes mellitus hypertension Plan of Treatment: s/p right colectomy f/u in office in 2 weeks Assessment: Doing well post op. Discharge Date/Time: 06/18/23 15:30
== END 2023-06-18 15:30 | disposition home or self-care (01) | DRG 331 ==
LOC: HO.SSSA 07:44 → HO.S3 11:22
PROVIDERS: Internal Medicine Medical Oncology; Nurse Practitioner; Physician Assistant Surgical; Admitting Provider Surgery; PCP Family Medicine; Visit Provider Surgery
PROC: 0DTE0ZZ Resection of Large Intestine, Open Approach (ICD-10-PCS; principal; 2023-06-14 07:30)
PROC: 0DTF0ZZ Resection of Right Large Intestine, Open Approach (ICD-10-PCS; 2023-06-14 07:30)
DX: C18.9 Malignant neoplasm of colon, unspecified (principal); K43.2 Incisional hernia without obstruction or gangrene; K66.0 Peritoneal adhesions (postprocedural) (postinfection); E11.9 Type 2 diabetes mellitus without complications; I10 Essential (primary) hypertension; J42 Unspecified chronic bronchitis; Z79.84 Long term (current) use of oral hypoglycemic drugs; Z79.899 Other long term (current) drug therapy
CPT/HCPCS: 36415; 80048; 80053; 82378; 82947; 83036; 85025; 85027; 86850; 86900; 86901; 88309; 88329; 93005; C1758; J0131; J0171; J0461; J1170; J1643; J2371; J2405; J3010

== ENCOUNTER → 2023-06-14 07:21 | Outpatient (BNV) | payer OTHER, SELFPAY | PROVIDERS: Admitting Provider Surgery; PCP Family Medicine; Visit Provider Surgery | DX: C18.2 Malignant neoplasm of ascending colon (principal); K42.0 Umbilical hernia with obstruction, without gangrene; Z90.49 Acquired absence of other specified parts of digestive tract | CPT/HCPCS: 44204; 49594; 99024; 99499 ==

== ENCOUNTER → 2023-06-14 07:21 | Outpatient (BNV) | payer OTHER, SELFPAY | PROVIDERS: Admitting Provider Surgery; PCP Family Medicine; Visit Provider Physician Assistant | DX: C18.9 Malignant neoplasm of colon, unspecified (principal) | CPT/HCPCS: 99223 ==

== ENCOUNTER 2023-07-03 10:51 | Outpatient (AMB) | payer OTHER, SELFPAY ==
--- NOTE | 2023-07-03 10:53 | MHC.OFFVIS ---
Intake Vital Signs 07/03/23 11:02 Weight 199 lb BP 156/72 H Blood Pressure Location Rt brachial Position Sitting Pulse 69 Intake Visit Reasons: S/P Rt colon resection, repair incisional hernia Intake Note: This patient presents for a post-op assessment status post right colon resection, repair of incisional hernia. Patient c/o; reports no complaints at this time pertaining to surgery. Public Safety Officer Required: No Accompanied by: Spouse Allergies No Known Allergies [No Known Allergies*] Allergy (Verified 07/03/23 11:03) Medication List - Last Reconciled 07/03/23 by Walker Marrero MD amlodipine 10 mg PO DAILY carvedilol 25 mg PO BID cyanocobalamin (vitamin B-12) 500 mcg PO DAILY docusate sodium 100 mg PO BID PRN dulaglutide 1.5 mg subcut FR ferrous sulfate 325 mg PO DAILY lisinopril 40 mg PO DAILY metformin ER 500 mg PO BEDTIME oxycodone-acetaminophen 5-325 mg (Percocet) 1 tab PO Q4-6H PRN HPI S/P Rt colon resection, repair incisional hernia HPI Details He underwent [facility] right colon resection for colon cancer last May,. He tolerated the procedure well. He was discharged on postop day 4. He has good oral intake. He says he is doing well at home. He denies significant pain. He has good bowel movements. [facility] Medical History White coat syndrome with hypertension Pneumonia Chronic bronchitis Incisional hernia Vitamin B 12 deficiency Obesity Iron deficiency anemia Vitamin D deficiency Hyperlipidemia Cancer of skin of face Hx of pilonidal cyst History of anal fissures Diabetes HTN (hypertension) Surgical History History of surgery Hx of endoscopic retrograde cholangiopancreatography Hx of colonoscopy History of esophagogastroduodenoscopy (EGD) History of cataract surgery History of surgical removal of pilonidal cyst Hx of appendectomy Hx of cholecystectomy Social History Household Members: Significant Other Housing: House Are you a primary respiratory care assistant to a significant other at home: No Do you presently have visiting nurse or other home services: No Alcohol intake: unknown Patient Tobacco Use Status: Never used Tobacco service: No Current occupational status: retired Review of Systems Const Denies chills and Denies fever(s) Card Denies chest pain, Denies dyspnea and Denies dyspnea on exertion Resp Denies cough, Denies dyspnea and Denies dyspnea on exertion GI Denies hematochezia and Denies change in bowel habits Denies hematuria and Denies difficulty urinating Musc Denies back pain and Denies limited range of motion Neuro Denies focal weakness and Denies convulsions Psych Denies depression and Denies mood swings Physical Exam Vital Signs: Last Vital Signs Pulse 69 07/03/23 11:02 BP 156/72 H 07/03/23 11:02 Const General: comfortable and no acute distress Resp Effort & Inspection: normal respiratory effort and able to speak in complete sentences GI Other: Incisions clean and dry, vivien intact, no signs of infection Palpation (GI): Soft to palpation, not firm, nontender and no guarding Assessment & Plan Assessment & Plan (1) Adenocarcinoma of colon: Code(s): C18.9 - Malignant neoplasm of colon, unspecified Plan: Status post right colon resection, hand assisted laparoscopic. He is doing well postop. All incisions are well healed. I removed his skin vivien. His path report shows a T3 N1 adenocarcinoma, moderate to poorly differentiated, with mucinous features. We will set him up for a consult with the oncologist I advised him not to do any lifting more than 20 lb for at least 2 more weeks. I will see him again in the office in about 1 month for another postop check. Orders: Referrals Hematology & Oncology Referral C18.9 - Malignant neoplasm of colon, unspecified Coding Level of Care Code Global (33765) Diagnoses Adenocarcinoma of colon C18.9
[2023-07-03 11:02] VITALS: BP 156/72; PULSE 69
== END 2023-07-03 11:27 | disposition home or self-care (01) ==
PROVIDERS: PCP Family Medicine; Visit Provider Surgery
DX: C18.9 Malignant neoplasm of colon, unspecified (principal)
CPT/HCPCS: 99024

== ENCOUNTER → 2023-07-03 10:51 | Outpatient (BNVA) | payer OTHER, SELFPAY | PROVIDERS: PCP Family Medicine; Visit Provider Surgery ==

== ENCOUNTER 2023-07-31 09:35 | Outpatient (AMB) | payer OTHER, SELFPAY ==
--- NOTE | 2023-07-31 09:38 | MHC.OFFVIS ---
Intake Vital Signs 07/31/23 09:43 Weight 202 lb BP 195/81 H Blood Pressure Location Rt brachial Position Sitting Pulse 65 Intake Visit Reasons: 1 mth Rt colon resection, repair incision hernia Intake Note: This patient presents for a one month follow-up assessment status post right colon resection and repair of incisional hernia. Patient c/o; reports no changes or complaints at this time. Combination Welder Required: No Accompanied by: Spouse Allergies No Known Allergies [No Known Allergies*] Allergy (Verified 07/31/23 09:42) HPI 1 mth Rt colon resection, repair incision hernia HPI Details He is here for a follow-up after right colon resection for cancer last May,. 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 He denies GI complaints. He says he feels well overall. He is seeing his oncologist next week. [facility] Medical History White coat syndrome with hypertension Pneumonia Chronic bronchitis Incisional hernia Vitamin B 12 deficiency Obesity Iron deficiency anemia Vitamin D deficiency Hyperlipidemia Cancer of skin of face Hx of pilonidal cyst History of anal fissures Diabetes HTN (hypertension) Surgical History History of surgery Hx of endoscopic retrograde cholangiopancreatography Hx of colonoscopy History of esophagogastroduodenoscopy (EGD) History of cataract surgery History of surgical removal of pilonidal cyst Hx of appendectomy Hx of cholecystectomy Social History Household Members: Significant Other Housing: House Are you a primary healthcare insurance sales agent to a significant other at home: No Do you presently have visiting nurse or other home services: No Alcohol intake: unknown Patient Tobacco Use Status: Never used Tobacco service: No Current occupational status: retired Review of Systems Const Denies chills and Denies fever(s) Card Denies chest pain, Denies dyspnea and Denies dyspnea on exertion Resp Denies cough, Denies dyspnea and Denies dyspnea on exertion GI Denies hematochezia and Denies change in bowel habits Denies hematuria and Denies difficulty urinating Musc Denies back pain and Denies limited range of motion Neuro Denies focal weakness and Denies convulsions Psych Denies depression and Denies mood swings Physical Exam Const General: comfortable and no acute distress Resp Effort & Inspection: normal respiratory effort GI Other: Incisions well healed, no hernias Palpation (GI): Soft to palpation, not firm, nontender and no guarding Assessment & Plan Assessment & Plan (1) S/P right colectomy: Code(s): Z90.49 - Acquired absence of other specified parts of digestive tract Plan: He continues to do well postop. He denies GI complaints. His incision is well healed. He can return to normal level of activities He is to see his oncologist next week. I will see him again in the office in about 6 months. Coding Level of Care Code Global (33382) Diagnoses S/P right colectomy Z90.49
[2023-07-31 09:43] VITALS: BP 195/81; PULSE 65
== END 2023-07-31 09:51 | disposition home or self-care (01) ==
PROVIDERS: PCP Family Medicine; Visit Provider Surgery
DX: Z90.49 Acquired absence of other specified parts of digestive tract (principal)
CPT/HCPCS: 99024

== ENCOUNTER → 2023-07-31 09:35 | Outpatient (BNVA) | payer OTHER, SELFPAY | PROVIDERS: PCP Family Medicine; Visit Provider Surgery | DX: Z90.49 Acquired absence of other specified parts of digestive tract (principal) | CPT/HCPCS: 99212 ==

== ENCOUNTER 2023-10-07 09:52 | Emergency (ER) | payer OTHER, SELFPAY ==
--- NOTE | ~2023-10-07 | XR_ITS ---
EXAMINATION: XR CHEST CLINICAL INFORMATION: Dyspnea on exertion. COMPARISON: CT chest 05/12/2023. TECHNIQUE: 2 views of the chest were obtained. FINDINGS: The lungs are well-expanded with increased interstitial markings in both lung bases left greater than right but no consolidation. Heart size and pulmonary vascularity is normal. No gross bony abnormality seen. XR/XR chest 2V IMPRESSION: Increased interstitial markings in both lung bases left greater than right but no consolidation seen. Suspect mild interstitial pneumonitis. No pleural effusion seen.
[2023-10-07 10:09] VITALS: BP 155/77; PULSE 78; RESP 20; TEMP 36.6; O2SAT 95; BMI 25.9
--- NOTE | 2023-10-07 10:17 | ECG_ITS ---
Test Reason : WEAKNESS Blood Pressure : / mmHG Vent. Rate : 067 BPM Atrial Rate : 067 BPM P-R Int : 254 ms QRS Dur : 140 ms QT Int : 400 ms P-R-T Axes : 024 -56 004 degrees QTc Int : 422 ms Sinus rhythm with 1st degree A-V block Left axis deviation Right bundle branch block Inferior infarct , age undetermined Abnormal ECG When compared with ECG of 08-JUN-2023 13:04, No significant changes seen Referred By: Giselle Farmer Electronically Signed By:SRUTHI CHRISTY
--- NOTE | 2023-10-07 10:20 | ED.GENADULT ---
HPI - General Adult General Chief complaint: General Medical Stated complaint: Dehydrated sent by oncology Time Seen by Provider: 10/07/23 10:16 Source: patient and other (Expect by Dr. Martinez) Mode of arrival: ambulatory Limitations: no limitations History of Present Illness HPI narrative: Patient is a 78-year-old male with colon CA, iron deficiency anemia, HTN, prediabetes currently on chemo infusions as well as oral chemo, last infusion was 09/28, presenting to the emergency department with complaint of extreme thirst overnight. States he went to bed at 11pm, woke at 1am with extreme thirst, and states I was unable to quench my thirst until 5am. Also reports fatigue and dyspnea on exertion, reports bilateral lower extremity edema at baseline, most noticeable while going upstairs and states has felt this way since his most recent chemo infusion. Reports diarrhea for the past 2 days but took medication for this and denies any this morning. Reports 1 episode of vomiting 2 days ago, took medication, none since. Denies chest pain or palpitations. Denies fevers/sweats/chills. Denies recent worsening of lower extremity edema, denies calf pain or swelling. Denies hematochezia or melena. States vomit was nonbilious, nonbloody. Denies abdominal pain or current nausea. Denies dysuria, frequency, or other urinary symptoms. Denies back or flank pain. Referred to ED by oncologist. MD complaint: diarrhea, fatigue, dyspnea Onset (ago): day(s) Related Data Home Medications Medication Instructions Recorded Confirmed amlodipine 10 mg tablet 10 mg PO DAILY 04/24/23 08/03/23 cyanocobalamin (vitamin B-12) 500 500 mcg PO DAILY 04/24/23 08/03/23 mcg tablet docusate sodium 100 mg capsule 100 mg PO BID PRN Constipation 04/24/23 08/03/23 dulaglutide 1.5 mg/0.5 mL 1.5 mg subcut FR 04/24/23 08/03/23 subcutaneous pen injector lisinopril 40 mg tablet 40 mg PO DAILY 04/24/23 08/03/23 metformin 500 mg tablet,extended 500 mg PO BEDTIME 04/24/23 08/03/23 release 24 hr carvedilol 25 mg tablet 25 mg PO BID 06/07/23 08/03/23 Previous Rx's Medication Instructions Recorded ferrous sulfate 325 mg (65 mg 325 mg PO DAILY #90 tabs 08/03/23 iron) tablet capecitabine 500 mg tablet 1,500 mg (3 x 500 mg) PO BID #100 08/08/23 tabs dexamethasone 4 mg tablet 4 mg PO BID #100 tabs 08/10/23 loperamide 2 mg capsule (Imodium 2 mg PO Q6H PRN Diarrhea #60 caps 08/10/23 A-D) ondansetron 8 mg disintegrating 8 mg PO Q8H #60 tabs 08/16/23 tablet prochlorperazine maleate 10 mg 10 mg PO Q8H PRN Nausea And 08/16/23 tablet (Compazine) Vomiting #30 tabs Allergies Allergy/AdvReac Type Severity Reaction Status Date / Time No Known Allergies Allergy Verified 10/07/23 10:13 [No Known Allergies*] Review of Systems Review of Systems: As per HPI. Yes all other systems are reviewed and are negative Constitutional: Constitutional: Reports as per HPI PMFSH Past Medical History Medical History White coat syndrome with hypertension Pneumonia Chronic bronchitis Incisional hernia Vitamin B 12 deficiency Obesity Iron deficiency anemia Vitamin D deficiency Hyperlipidemia Cancer of skin of face Hx of pilonidal cyst History of anal fissures Diabetes HTN (hypertension) Surgical History History of surgery Hx of endoscopic retrograde cholangiopancreatography Hx of colonoscopy History of esophagogastroduodenoscopy (EGD) History of cataract surgery History of surgical removal of pilonidal cyst Hx of appendectomy Hx of cholecystectomy Social History Social History Household Members: Significant Other Housing: House Are you a primary post acute care nurse to a significant other at home: No Do you presently have visiting nurse or other home services: No Alcohol intake: former Patient Tobacco Use Status: Never used Tobacco Smoked in Last 30 Days: No Use of substances other than those prescribed or required for medical reasons: No Advance Directives: No Advance Directives Information Provided: No service: No Current occupational status: retired Physical Exam ED Vital Signs: Vital Signs - 24 hr 10/07/23 10:09 10/07/23 12:07 10/07/23 12:15 Temperature 97.9 F Pulse Rate 78 69 Respiratory Rate 20 16 18 Blood Pressure 155/77 H 145/77 H 145/77 H Pulse Oximetry 95 94 Oxygen Delivery Method Room Air Room Air BMI result Body Mass Index 25.9 Vital signs have been reviewed and appear to be correct. Blood pressure normal. Heart rate normal. Respiratory rate normal. Temperature normal. Oxygen saturation normal. Const General: cooperative, healthy appearing and no acute distress Orientation/consciousness: oriented to person, oriented to place, oriented to time and patient oriented x3 Limitations: no limitations HENKY Head: Yes normocephalic and Yes atraumatic Ears: external ears normal General nose exam: Normal external nose present Face and sinus: Yes face symmetric Mouth: oropharynx normal and moist mucous membranes Throat: Yes uvula midline Eyes Pupils: Equal, round and reactive pupils present Neck Neck: Yes normal visual inspection and Yes supple Resp Effort & Inspection: normal respiratory effort and able to speak in complete sentences Auscultation: clear to auscultation bilaterally Cardio Rate: regular rate Rhythm: regular rhythm Heart sounds: S1 normal heart sound present and S2 normal heart sound present GI Palpation (GI): Soft to palpation and nontender Auscultation: normoactive bowel sounds General: Yes no CVA tenderness Back/Spine/Pelvis Back: no CVA tenderness Skin General skin exam: elasticity normal and turgor normal Neuro General: oriented to person, oriented to place, oriented to time, patient oriented x3, moves all extremities, no focal motor deficits and CN's II-XI intact bilaterally Cranial nerves: Yes Equal, round and reactive pupils present Cognition (Neuro): normal cognition Extrem General: Yes full ROM, Yes no calf tenderness and Yes edema (2+ pitting bilateral lower extremities) Psych Mental Status: mental status grossly normal Affect: normal affect Thought process: Normal thought process present Medications Administered Discontinued Medications Generic Name Dose Route Start Last Admin Trade Name Freq PRN Reason Stop Dose Admin Sodium Chloride 1,000 mls @ 999 mls/hr 10/07/23 11:30 10/07/23 12:48 Ns IV 10/07/23 12:30 Infused .Q1H1M KIN Infusion Sodium Chloride 1,000 mls @ 999 mls/hr 10/07/23 12:45 10/07/23 12:48 Ns IV 10/07/23 13:45 999 mls/hr .Q1H1M KIN Administration Insulin Human Lispro 5 unit 10/07/23 11:38 10/07/23 12:13 Insulin Lispro 100 Unit/Ml 3 Ml Vial SUBCUT 10/07/23 11:39 5 unit ONCE ONE Administration Medical Decision Making Medical Decision Making [facility] Narrative: 10:20 Patient is a 78-year-old male with colon CA, currently on chemo infusions as well as oral chemo, last infusion was 09/28, presenting to the emergency department with complaint of extreme thirst overnight. On exam patient is awake, A+Ox3, BP elevated, VS otherwise WNL, afebrile, normal neurological exam without focal deficits, physical exam findings as above. Given reported symptoms and physical exam findings, initial differential includes dehydration, electrolyte abnormality, UTI, viral URI, Covid, flu, pneumonia. Do not suspect sepsis at this time. Plan: EKG, labs, UA, CXR Labs notable for leukocytosis, chronic stable anemia not requiring transfusion, LIZZY, hyperglycemia without anion gap. X-ray chest notable for increased interstitial markings in bilat bases, L>R, without consolidation. My interpretation is in agreement with the radiologist's interpretation. Case discussed with Dr. Lebron, will order CTA chest to r/o PE as patient is not anticoagulated. IV fluids and insulin ordered. 13:30 Patient refusing CTA, stating he feels better after receiving insulin and IV fluids. Reports he has been cheating on his diet for the past 3 weeks. Also states that he has ambulated to bathroom several times while here without becoming dyspneic. Discussed risks of refusing CT with patient up to and including . Patient verbalized understanding of this and again refused CT, understands he will be signing out against medical advice. Glucose improved after insulin and fluids, patient requesting discharge home. Feel patient is stable for discharge as he is afebrile, hemodynamically stable, tolerating PO, and has not had any diarrhea while in the ED. Instructed patient to follow up with PCP and oncologist on Monday for repeat labs. Strict return precautions discussed at bedside. Patient verbalized understanding of and agreement with plan. Differential Diagnosis Differential Diagnoses: The differential diagnosis associated with the presentation includes As per [facility]. Admission/Observation Consideration of admission/observation: Escalation of care including admission/observation considered Lab Data [facility] Lab Attestation statement: I reviewed the patient's lab results. As per MDM. 10/07/23 10:34 10/07/23 10:34 Labs: Lab Results 10/07/23 10/07/23 Range/Units 10:34 13:18 WBC 12.7 H (4.8-10.8) X10*3/uL RBC 4.71 (4.60-5.80) X10*6/uL Hgb 11.7 L (14.0-18.0) g/dl Hct 36.5 L (42.0-52.0) % MCV 77.5 L (80.0-98.0) fL MCH 24.8 L (27.0-33.0) pg MCHC 32.1 (31.0-36.0) g/dl RDW 22.4 H (11.0-16.0) % Plt Count 155 L D (160-400) X10*3/uL MPV 10.0 (9.4-12.4) fL Immature Gran % (Auto) 1.5 H (0.0-0.4) % Neut % (Auto) 76.6 H (45-73) % Lymph % (Auto) 12.2 L (20-40) % [place] % (Auto) 7.6 (2-11) % Eos % (Auto) 2.0 (0-4) % Baso % (Auto) 0.1 (0-2) % Lymph # (Auto) 1.6 (1.2-4.9) X10*3/uL [place] # (Auto) 1.0 (0.1-1.2) X10*3/uL Eos # (Auto) 0.3 (0.0-0.4) X10*3/uL Baso # (Auto) 0.0 (0.0-0.2) X10*3/uL Abs Immat Gran (auto) 0.19 H (0.00-0.03) X10*3/uL Absolute Neuts (auto) 9.7 H (2.0-8.3) x10*3/uL Absolute Nucleated RBC 0.000 (0.0-0.012) X10*3/uL Nucleated RBC % (auto) 0.0 (0.0-0.2) /100WBC Sodium 136 (135-145) mmol/L Potassium 3.7 D (3.3-5.1) mmol/L Chloride 103 (96-108) mmol/L Carbon Dioxide 25 (22-29) mmol/L Anion Gap 12 (12-20) BUN 21 H (9-16) mg/dL Creatinine 1.52 H (0.5-1.4) mg/dL Estim Creat Clear Calc 43.3 Estimated GFR 45 POC Glucose 283 H (60-115) mg/dL Random Glucose 502 H* (60-115) mg/dL Calcium 9.5 (8.4-10.2) mg/dL Magnesium 1.9 (1.6-2.6) mg/dL Total Bilirubin 0.4 (0.0-1.0) mg/dL AST 12 (5-37) U/L ALT 11 (0-40) U/L Alkaline Phosphatase 127 H (39-117) U/L B-Natriuretic Peptide 71 (<100) pg/mL Total Protein 6.1 L (6.5-8.0) g/dL Albumin 3.5 (3.5-5.0) g/dL Procalcitonin 0.08 ng/mL COVID-19 (NANCY) Negative (Negative) COVID-19 Clin Com See Note Influenza Type A (MOSHE) Negative (Negative) Influenza Type B (MOSHE) Negative (Negative) Influenza A & B Note See Note Independent Interpretation I performed an independent interpretation of an: EKG (sinus rhythm with 1st degree AV block, RBBB, rate 67 bpm, normal [place] interval, similar to prior) and Plain X-Ray Interpretation: X-ray chest notable for increased interstitial markings in bilat bases, L>R, without consolidation Radiology Impression Discussion of test interpretation with radiology: I have reviewed the radiologist's reading. Radiologist Impression: XR/XR chest 2V IMPRESSION: Increased interstitial markings in both lung bases left greater than right but no consolidation seen. Suspect mild interstitial pneumonitis. No pleural effusion seen. External Record Review External record reviewed: Inpatient record, Office record and Outpatient record Discharge Plan Discharge Clinical Impression: Hyperglycemia, Exertional dyspnea Patient Disposition: Left Against Medical Advice Instructions: Dyspnea (ED), Diabetic Hyperglycemia (ED) Additional Instructions: You were evaluated in the emergency department today for lightheadedness, diarrhea and dyspnea on exertion. Your evaluation revealed elevated blood glucose levels and you were treated with insulin and IV fluids in the emergency department. Your symptoms improved with this treatment. You declined a CT scan of your chest today to assess your symptoms. Please follow-up with your primary care provider and oncologist on Monday for repeat labs. Return to the emergency department if you develop increasing episodes of diarrhea, abdominal pain, vomiting, fever 100.4? F or greater, chest pain, increasing shortness of breath, palpitations or any other concerning symptoms. Prescriptions: No Action cyanocobalamin (vitamin B-12) 500 mcg Tablet 500 mcg PO DAILY amlodipine 10 mg Tablet 10 mg PO DAILY docusate sodium 100 mg Capsule 100 mg PO BID PRN (Reason: Constipation) lisinopril 40 mg Tablet 40 mg PO DAILY metformin 500 mg Tablet Extended Release 24 Hr 500 mg PO BEDTIME dulaglutide 1.5 mg/0.5 mL Pen Injector 1.5 mg SUBCUT FR carvedilol 25 mg Tablet 25 mg PO BID Rx Instructions: must administer with a meal/food ferrous sulfate 325 mg (65 mg iron) Tablet 325 mg PO DAILY Qty: 90 4RF capecitabine 500 mg Tablet 1,500 mg PO BID Qty: 100 5RF Rx Instructions: 1500 mg po BID for 14 days per 21-day cycle; must administer with water 30 minutes after a meal dexamethasone 4 mg Tablet 4 mg PO BID Qty: 100 2RF Rx Instructions: Take 4 mg p.o. b.i.d. days 2 and 3 of chemotherapy every 3 weeks. loperamide [Imodium A-D] 2 mg Capsule 2 mg PO Q6H PRN (Reason: Diarrhea) Qty: 60 2RF ondansetron 8 mg Tablet,Disintegrating 8 mg PO Q8H Qty: 60 4RF prochlorperazine maleate [Compazine] 10 mg Tablet 10 mg PO Q8H PRN (Reason: Nausea And Vomiting) Qty: 30 3RF Stand Alone Forms: Against Medical Advice
--- NOTE | 2023-10-07 10:22 | PC.NURSE ---
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 Vinod last treatment 10 days ago and has been feeing weak, tired, and sob with exertion since. Vinod usually feels better 5-6 days after treatment but this time he is not feeling better. Denies pain or discomfort. vinod has had diarrhea for the last two days, threw x1 time 2 days ago.
[2023-10-07 10:37] LABS: MANUAL DIFF FLAG NO
[2023-10-07 10:40] LABS: Basophils Percent Auto 0.1 % (0-2); Eosinophils Absolute Auto 0.3 X10*3/uL (0.0-0.4); Hematocrit 36.5 % (42.0-52.0); Hemoglobin 11.7 g/dl (14.0-18.0); Imm Gran Abs Auto 0.19 X10*3/uL (0.00-0.03); Imm Gran Pct Auto 1.5 % (0.0-0.4); Lymphocytes Absolute Auto 1.6 X10*3/uL (1.2-4.9); Lymphocytes Percent Auto 12.2 % (20-40); Mean Corpuscular HGB Conc 32.1 g/dl (31.0-36.0); Mean Corpuscular Hemoglobin 24.8 pg (27.0-33.0); Mean Corpuscular Volume 77.5 fL (80.0-98.0); Monocytes Percent Auto 7.6 % (2-11); Neutrophils Absolute Auto 9.7 x10*3/uL (2.0-8.3); Neutrophils Percent Auto 76.6 % (45-73); Red Blood Count 4.71 X10*6/uL (4.60-5.80); Red Cell Distribution Width 22.4 % (11.0-16.0); White Blood Count 12.7 X10*3/uL (4.8-10.8)
[2023-10-07 10:48] LABS: Platelet Count 155 X10*3/uL (160-400)
[2023-10-07 11:03] LABS: COVID-19 Test Negative (Negative); IDNOW Serial# 08D9AD1C; IDNOW Serial# 152EDE1D; Influenza A Negative (Negative); Influenza B2 Negative (Negative)
[2023-10-07 11:10] LABS: Alanine Aminotransferase 11 U/L (0-40); Albumin Level 3.5 g/dL (3.5-5.0); Alkaline Phosphatase 127 U/L (39-117); Anion Gap 12 (12-20); Aspartate Amino Transferase 12 U/L (5-37); Bilirubin Total 0.4 mg/dL (0.0-1.0); Blood Urea Nitrogen 21 mg/dL (9-16); Calcium 9.5 mg/dL (8.4-10.2); Carbon Dioxide 25 mmol/L (22-29); Chloride 103 mmol/L (96-108); Creatinine Clr Calc Pharmacy 43.3; Estimated Glomerular Filt Rate 45; Glucose Random 502 mg/dL (60-115); Magnesium 1.9 mg/dL (1.6-2.6); Potassium 3.7 mmol/L (3.3-5.1); Sodium 136 mmol/L (135-145); Total Protein 6.1 g/dL (6.5-8.0)
[2023-10-07 11:21] LABS: Procalcitonin 0.08 ng/mL
[2023-10-07] MEDS: 0.9 % Sodium Chloride 1,000 ML 999 ML IV ×2 (11:27→12:48)
[2023-10-07 11:32] LABS: B Type Natriuretic Peptide 71 pg/mL (<100)
[2023-10-07 12:07] VITALS: BP 145/77; PULSE 69; RESP 16; O2SAT 94
[2023-10-07] MEDS: Insulin Lispro 100 UNIT/ML 3 ML VIAL SUBCUT (12:13)
[2023-10-07 12:15] VITALS: BP 145/77; RESP 18
--- NOTE | 2023-10-07 13:03 | PC.NURSE ---
Patient declined CTA stating he is fine and there is nothing wrong with his lungs
[2023-10-07 13:23] LABS: Glucose, Whole Blood 283 mg/dL (60-115)
== END 2023-10-07 13:57 | disposition left against medical advice (07) ==
PROVIDERS: Emergency Provider Emergency Medicine; PCP Family Medicine; Referring Provider Registered Nurse Emergency
DX: E11.65 Type 2 diabetes mellitus with hyperglycemia (principal); R06.09 Other forms of dyspnea; R60.0 Localized edema; C18.9 Malignant neoplasm of colon, unspecified; E61.1 Iron deficiency; I10 Essential (primary) hypertension; E78.5 Hyperlipidemia, unspecified; Z90.49 Acquired absence of other specified parts of digestive tract; Z92.21 Personal history of antineoplastic chemotherapy; Z79.84 Long term (current) use of oral hypoglycemic drugs; Z79.85 Long-term (current) use of injectable non-insulin antidiabetic drugs; Z79.899 Other long term (current) drug therapy; Z11.52 Encounter for screening for COVID-19
CPT/HCPCS: 71046; 80053; 82947; 83735; 83880; 84145; 85025; 87502; 87635; 93005; 96360; 96361; 99284; 99285

== ENCOUNTER → 2023-10-07 10:17 | Outpatient (BNV) | payer OTHER, SELFPAY | PROVIDERS: Emergency Provider Emergency Medicine; PCP Family Medicine; Visit Provider Internal Medicine | DX: R53.1 Weakness (principal) | CPT/HCPCS: 93010 ==

== ENCOUNTER 2024-01-17 12:16 | Outpatient (AMB) | payer OTHER, SELFPAY ==
[2024-01-17 12:34] VITALS: BP 184/83; PULSE 74; BMI 25.2
--- NOTE | 2024-01-17 12:34 | A.OFFVIS_ITS ---
Vital Signs 01/17/24 12:34 Height 5 ft 11 in Weight 180 lb 12.465 oz BMI 25.2 BP 184/83 H Blood Pressure Location Lt brachial Position Sitting Pulse 74 Intake Visit Reasons: F/u colon cancer Intake Note: Yusuf presents in the office as a follow up for colon cancer. CC: No concerns at this time! Mobile Device Developer Required: No Allergies No Known Allergies [No Known Allergies*] Allergy (Verified 01/24/24 09:22) HPI Comments Details: This is a 77y.o M with PMH of BCC x 2 on face, HTN, prediabetes who has been referred to our office for iron deficiency anemia. 04/17/23: Pt reports having routine blood work done through his primary care office at the [place] this February that showed severe anemia with hemoglobin of 8 and ferritin of 4. Labs prior to this done in August 2022 were normal per his report. Patient himself has no abdominal complaints to include abdominal pain, nausea, vomiting, early satiety, changes in bowel habits, unintentional weight loss. No family history of colon cancer. Has never had colon cancer screening done in the past. 04/26/23: 1. Normal esophageal mucosa 2. Normal stomach mucosa (biopsy) 3. Abnormal duodenal bulb mucosa (biopsy) 4. Malignant appearing ascending colon mass (biopsy, tattoo) 5. Diverticulosis 6. Internal hemorrhoids Path: A. 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 B. 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 C. Stomach, random, biopsies: Mild reactive gastropathy, no evidence of H. pylori, intestinal metaplasia, or dysplasia. D. Colon, ascending, biopsy of mass: Adenocarcinoma, invasive, moderately differentiated Addendum #1 Mismatch repair immunohistochemistry shows intact MLH1, MSH2, and MSH6 staining and loss of PMS2 staining. MLH1 methylation promoter methylation is not detected by an analysis performed at [facility]. 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 05/12/23: CT chest/abd/pel: Small pulmonary nodules, the majority probably representing peripheral or subpleural lymph nodes. Chest CT follow-up as per protocol. Limited evaluation of the lung bases due to respiratory motion artifact. Bronchial wall thickening and increased peribronchial attenuation in both lower lobes and mild focal bronchiectasis in the left lower lobe. Appearance is suggestive of infectious or inflammatory process/bronchitis. Large right colon mass measuring 6.4 cm in length with applecore appearance suspicious for neoplasm. Enlarged adjacent pericolic lymph nodes, largest measuring 1.7 cm in short axis and stranding of the adjacent fat. No evidence of of distant disease. Constipation and diverticulosis. Large ventral and umbilical hernias containing fat. 05/26/23: Seen in office. Reports no abd pain, N,V, changes in stool or blood in stool. Continues on iron supplements. Reports good energy levels, has been mowing his lawn. Seen by Onc and waiting to see surgery. Also tells me was sent for genetic testing through Dr Griffiths. For the nose lesion, has not seen his lei seller yet. Planning to take care of that after his colon surgery. 01/17/24: Here for routine follow up. Due for repeat surveillance colo. Sometimes has post prandial or position related R sided discomfort but otherwise no acute GI issues. Of note mentions frequent easy bruising. Not on blood thinners. Platelets normal. [facility] Medical History (Updated 01/24/24 @ 09:32 by Walker Marrero MD) History of colon cancer White coat syndrome with hypertension Pneumonia Chronic bronchitis Incisional hernia Vitamin B 12 deficiency Obesity Iron deficiency anemia Vitamin D deficiency Hyperlipidemia Cancer of skin of face Hx of pilonidal cyst History of anal fissures Diabetes HTN (hypertension) Surgical History History of surgery Hx of endoscopic retrograde cholangiopancreatography Hx of colonoscopy History of esophagogastroduodenoscopy (EGD) History of cataract surgery History of surgical removal of pilonidal cyst Hx of appendectomy Hx of cholecystectomy Social History Household Members: Significant Other Housing: House Are you a primary home health care physician to a significant other at home: No Do you presently have visiting nurse or other home services: No Alcohol intake: former Patient Tobacco Use Status: Never used Tobacco service: No Current occupational status: retired Review of Systems Const All systems reviewed & are unremarkable except as noted in HPI and below Physical Exam Vital Signs: Last Vital Signs Pulse 74 01/17/24 12:34 BP 184/83 H 01/17/24 12:34 BMI result Body Mass Index 25.2 No apparent distress Nonicteric Abdomen soft, nondistended Alert and oriented x3, normal gait Assessment & Plan Assessment & Plan (1) History of colon cancer: Code(s): Z85.038 - Personal history of other malignant neoplasm of large intestine Category: Medical (2) Easy bruising: Code(s): R23.3 - Spontaneous ecchymoses Category: Medical (3) Elevated alkaline phosphatase level: Code(s): R74.8 - Abnormal levels of other serum enzymes Category: Medical Plan 1. Hx of colon ca: Due for q1y surveillance colo this March. PEG prep instructions reviewed and prep sent. 2. Easy bruising: platelet count normal. Will check coags. Pt also advised to review with his oncologist. 3.Elevated ALP: noted on lab review. Likely bone related given age but will fractionate. Follow up after colo. Orders: Orders Liver Panel 01/17/24 R74.8 - Abnormal levels of other serum enzymes Alkaline Phosphatase Isoenzyme 01/17/24 R74.8 - Abnormal levels of other serum enzymes Mixing Study (PT/PTT) 01/17/24 R23.3 - Spontaneous ecchymoses Prothrombin Time INR 01/17/24 R23.3 - Spontaneous ecchymoses Medications: New peg 3350-electrolytes 236-22.74-6.74 -5.86 gram (Golytely) as per split prep instructions, until fecal effluent is clear 240 mL PO Q10M 4,000 mL 0RF colonoscopy Coding Level of Care Code Est Pt Level 4 (71614) Diagnoses History of colon cancer Z85.038 Easy bruising R23.3 Elevated alkaline phosphatase level R74.8
== END 2024-01-17 13:00 | disposition home or self-care (01) ==
PROVIDERS: PCP Family Medicine; Referring Provider Family Medicine; Visit Provider Internal Medicine
DX: Z85.038 Personal history of other malignant neoplasm of large intestine (principal); R23.3 Spontaneous ecchymoses; R74.8 Abnormal levels of other serum enzymes
CPT/HCPCS: 99214

== ENCOUNTER → 2024-01-17 12:16 | Outpatient (BNVA) | payer OTHER, SELFPAY | PROVIDERS: PCP Family Medicine; Visit Provider Internal Medicine | DX: R23.3 Spontaneous ecchymoses (principal); R74.8 Abnormal levels of other serum enzymes; Z85.038 Personal history of other malignant neoplasm of large intestine | CPT/HCPCS: 99212 ==

== ENCOUNTER 2024-01-24 09:01 | Outpatient (AMB) | payer OTHER, SELFPAY ==
--- NOTE | 2024-01-24 09:09 | MHC.OFFVIS ---
Vital Signs 01/24/24 09:11 Height 5 ft 11 in Weight 185 lb BMI 25.8 BP 168/79 H Blood Pressure Location Rt brachial Position Sitting Pulse 66 Intake Visit Reasons: right colectomy 6 mo follow up Intake Note: This patient presents for a six month follow-up status post right colectomy. Pt c/o; reports no complaints. Hat Former Required: No Accompanied by: Spouse Allergies No Known Allergies [No Known Allergies*] Allergy (Verified 01/24/24 09:22) Medication List - Last Reconciled 01/24/24 by Walker Marrero MD amlodipine 10 mg PO DAILY capecitabine 1,500 mg (3 x 500 mg) PO BID carvedilol 25 mg PO BID cyanocobalamin (vitamin B-12) 500 mcg PO DAILY dexamethasone 4 mg PO BID docusate sodium 100 mg PO BID PRN dulaglutide 1.5 mg subcut FR ferrous sulfate 325 mg PO DAILY lisinopril 40 mg PO DAILY loperamide (Imodium A-D) 2 mg PO Q6H PRN metformin ER 500 mg PO BEDTIME ondansetron 8 mg PO Q8H peg 3350-electrolytes 236-22.74-6.74 -5.86 gram (Golytely) 240 mL PO Q10M prochlorperazine maleate (Compazine) 10 mg PO Q8H PRN HPI HPI right colectomy 6 mo follow up: Details: He is here for a follow-up after right colon resection for cancer last May,. 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 He had undergone adjuvant chemotherapy with Dr. Griffiths. He denies GI complaints. He says he feels well overall. He does describe some weakness of both lower extremities. He good oral intake. Denies problems with bowel movements. [facility] Medical History (Updated 01/24/24 @ 09:32 by Walker Marrero MD) History of colon cancer White coat syndrome with hypertension Pneumonia Chronic bronchitis Incisional hernia Vitamin B 12 deficiency Obesity Iron deficiency anemia Vitamin D deficiency Hyperlipidemia Cancer of skin of face Hx of pilonidal cyst History of anal fissures Diabetes HTN (hypertension) Surgical History History of surgery Hx of endoscopic retrograde cholangiopancreatography Hx of colonoscopy History of esophagogastroduodenoscopy (EGD) History of cataract surgery History of surgical removal of pilonidal cyst Hx of appendectomy Hx of cholecystectomy Social History Household Members: Significant Other Housing: House Are you a primary health care facilities inspector to a significant other at home: No Do you presently have visiting nurse or other home services: No Alcohol intake: former Patient Tobacco Use Status: Never used Tobacco service: No Current occupational status: retired Review of Systems Const Denies chills and Denies fever(s) Card Denies chest pain, Denies dyspnea and Denies dyspnea on exertion Resp Denies cough, Denies dyspnea and Denies dyspnea on exertion GI Denies hematochezia and Denies change in bowel habits Denies hematuria and Denies difficulty urinating Musc Denies back pain, Denies limited range of motion and Reports muscle weakness (Both legs) Neuro Denies focal weakness and Denies convulsions Psych Denies depression and Denies mood swings Physical Exam Vital Signs: Last Vital Signs Pulse 66 01/24/24 09:11 BP 168/79 H 01/24/24 09:11 BMI result Body Mass Index 25.8 Const General: comfortable and no acute distress Orientation/consciousness: patient oriented x3 Neck Neck: Yes no lymphadenopathy Resp Auscultation: clear to auscultation bilaterally Cardio Rhythm: regular rhythm GI Palpation (GI): Soft to palpation, nontender and no guarding Neuro General: patient oriented x3 Assessment & Plan Assessment & Plan (1) History of colon cancer: Code(s): Z85.038 - Personal history of other malignant neoplasm of large intestine Category: Medical Plan: He is status post right colon resection for a T3 N1 adenocarcinoma in May,. He looks well overall and says he is doing very well He is a level is elevated at 9.8. He is scheduled to have a CT scan of the abdomen and pelvis as a follow-up. I will facilitate this with him. He is to continue to follow up with Dr. Griffiths as well. I will review his CT scan and discuss this with him. He is also to have a follow-up colonoscopy in March. Coding Level of Care Code Est Pt Level 3 (33879) Diagnoses History of colon cancer Z85.038
[2024-01-24 09:11] VITALS: BP 168/79; PULSE 66; BMI 25.8
== END 2024-01-24 09:34 | disposition home or self-care (01) ==
PROVIDERS: PCP Family Medicine; Visit Provider Surgery
DX: Z85.038 Personal history of other malignant neoplasm of large intestine (principal)
CPT/HCPCS: 99213

== ENCOUNTER → 2024-01-24 09:01 | Outpatient (BNVA) | payer OTHER, SELFPAY | PROVIDERS: PCP Family Medicine; Visit Provider Surgery | DX: C18.9 Malignant neoplasm of colon, unspecified (principal); Z90.49 Acquired absence of other specified parts of digestive tract; Z92.21 Personal history of antineoplastic chemotherapy | CPT/HCPCS: 99212 ==

== ENCOUNTER 2024-01-31 09:19 | Outpatient (REF) | payer OTHER, SELFPAY ==
--- NOTE | ~2024-01-31 | CT_ITS ---
EXAMINATION: CT ABDOMEN AND PELVIS WITH CONTRAST CLINICAL INFORMATION: Follow-up colon cancer after treatment. COMPARISON: None available. TECHNIQUE: Multidetector volumetric images were obtained from the superior aspect of the liver through the pubic symphysis following administration 85 mL of Omnipaque 350 intravenous contrast. Sagittal and coronal reformatted images were obtained on the technologist's workstation. Oral contrast: No This CT examination was performed using dose optimization techniques as appropriate, variously including the following: *Automated exposure control *Adjustment of mA and/or kV according to patient size (this includes techniques or standardized protocols for targeted exams where dose is matched to indication/reason for exam; i.e. extremities or head) *Use of iterative reconstruction technique DLP: 408 mGy-cm. FINDINGS: LUNG BASES: Marked bronchial thickening is present along with a left basilar infiltrate and traction bronchiectasis. These findings appear significantly worse at the left lung base when compared to the prior study. Some increased tree-in-bud opacities are seen at the right lung base. There were some small 4 mm nodules seen at the lung bases, which are more difficult to see now because of the atelectasis/consolidation. There were 2 adjacent 4 mm subpleural left lower lobe nodules seen previously (prior 6:144 and 145), one of which may appear larger at 8 mm (4:55). Please see report of chest CT performed same day. LIVER, GALLBLADDER, AND BILIARY TREE: The liver is normal in size, shape, and attenuation. No focal hepatic lesion or biliary ductal dilatation is present. Status post cholecystectomy. PANCREAS: Unremarkable. SPLEEN: Unremarkable. ADRENAL GLANDS: Unremarkable. KIDNEYS AND URETERS: The kidneys are normal in size, shape, and attenuation. No hydronephrosis, hydroureter, or calculi seen. No perinephric stranding. A benign right-sided 3.4 cm lower pole Bosniak class I renal cyst is noted along with some other smaller benign cysts bilaterally, which require no additional imaging or follow up. No solid renal masses are seen. BLADDER: Unremarkable. GASTROINTESTINAL TRACT: A small hiatal hernia is present. There is extensive left colon diverticulosis without diverticulitis. The previously seen right colon apple core mass is no longer present and the patient is status post right hemicolectomy. There are abnormal soft tissue omental opacities seen in the right lower quadrant behind the abdominal wall. Which are new compared to prior, measuring 4.7 x 2.2 x 7.4 cm (3:52 and 7:96). The small and large bowel are otherwise unremarkable. The appendix is no longer present. ABDOMINAL WALL: Previously seen ventral and umbilical hernias appear to have been repaired. Soft tissue thickening is seen around the region of the umbilicus. LYMPH NODES: No retroperitoneal lymphadenopathy. Please see discussion above regarding omental mass right lower quadrant. VASCULAR: Unremarkable. PELVIC VISCERA: There is mild BPH. Seminal vesicles are normal. OSSEOUS STRUCTURES: Degenerative changes are present throughout the spine. No bony destructive lesions. CT/CT abdomen pelvis w IV con IMPRESSION: 1. Status post right hemicolectomy with new omental mass in the right lower quadrant. This may be related to the patient's surgery and close interval follow-up is recommended. This could always be biopsied percutaneously under CT guidance if recurrent disease is suspected. 2. Worsening left lower lobe infiltrate with bronchiectasis and bronchial thickening. 3. Other incidental findings as described above. Fleischner guidelines were followed.
--- NOTE | ~2024-01-31 | CT_ITS ---
EXAMINATION: CT CHEST WITH CONTRAST CLINICAL INFORMATION: Follow-up colon cancer after chemotherapy COMPARISON: Prior CT chest dated 05/12/2023 TECHNIQUE: Multidetector volumetric CT imaging of the chest was obtained after the administration of 85 mL of Omnipaque 350 intravenous contrast without immediate adverse reactions. Axial MIP volume rendering provided. Sagittal and coronal reformatted images were obtained. This CT examination was performed using dose optimization techniques as appropriate, variously including the following: *Automated exposure control *Adjustment of mA and/or kV according to patient size (this includes techniques or standardized protocols for targeted exams where dose is matched to indication/reason for exam; i.e. extremities or head) *Use of iterative reconstruction technique DLP: 130 mGy-cm FINDINGS: COMBINATION WINDOW INSTALLER: Unremarkable LUNGS: There is a moderate consolidation at the left base with air bronchograms seen, extending up towards left infrahilar region and this has progressed from 05/12/2023. Bronchiectatic changes are observed. Similar bronchiectatic change with mucous plugging or infiltrate at the right base is either unchanged or minimally worse. The lungs do appear to be hyperaerated. Previously noted sub-4 mm micronodules are less conspicuous. New or enlarging masses or nodules are not observed. MEDIASTINUM: There is normal contrast enhancement in the great vessels mediastinum. There is minimal anterior pericardial thickening or fluid and this appears to have increased slightly. Heart size normal. No significant coronary calcifications. A few small subcentimeter mediastinal nodes particularly in the precarinal space measuring up to 9 mm are stable. PLEURA: There is no pleural effusion. No pleural mass or thickening. AXILLA: No lymphadenopathy. UPPER ABDOMEN: Fatty liver. Gallbladder absent. Adrenals normal. OSSEOUS STRUCTURES: Kyphosis and spondylitic change observed, in the thoracic spine. No fracture. CT/CT chest w IV con IMPRESSION: Progressive infiltrate and atelectasis and bronchiectasis in the left lower lobe. Other comments as above. Fleischner guidelines were followed.
[2024-01-31] MEDS: iohexoL 350 MG/ML 100 ML INFUS..BTL IV (12:20)
[2024-01-31] MEDS: Barium Sulfate Oral (Mocha) 450 ML ORAL.SUSP 900 ML PO (12:20)
== END 2024-01-31 09:20 | disposition home or self-care (01) ==
LOC: HO.CT 09:19
PROVIDERS: PCP Family Medicine; Visit Provider Internal Medicine Medical Oncology
DX: C18.9 Malignant neoplasm of colon, unspecified (principal)
CPT/HCPCS: 71260; 74177; Q9967

== ENCOUNTER 2024-03-05 10:46 | Outpatient (AMB) | payer OTHER, SELFPAY ==
[2024-03-05 10:51] VITALS: BP 148/62; PULSE 71; O2SAT 97; BMI 27.2
--- NOTE | 2024-03-05 10:51 | MHC.OFFVIS ---
Vital Signs 03/05/24 10:51 Height 5 ft 11 in Weight 195 lb 1.745 oz BMI 27.2 BP 148/62 H Blood Pressure Location Rt brachial Position Sitting Pulse 71 Pulse Source Doppler Pulse Oximetry (%) 97 Oxygen Delivery Method Room Air Intake Visit Reasons: Bronchiectasis Allergies No Known Allergies [No Known Allergies*] Allergy (Verified 03/05/24 10:55) HPI HPI Bronchiectasis: Details: 78-year-old gentleman, nonsmoker, with underlying history of colon cancer status post right colectomy and chemotherapy referred for evaluation of bronchiectasis and recurrent bronchitis. Patient states that he has had pneumonia 3 times in 8 years and currently continues to have intermittent productive cough. He denies prior personal history of lung disease. He does have family history of asthma in his mother. 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 He denies environmental allergies. [facility] Medical History (Updated 03/05/24 @ 11:10 by Giuseppe Aleman MD) History of colon cancer White coat syndrome with hypertension Pneumonia Chronic bronchitis Incisional hernia Vitamin B 12 deficiency Obesity Iron deficiency anemia Vitamin D deficiency Hyperlipidemia Cancer of skin of face Hx of pilonidal cyst History of anal fissures Diabetes HTN (hypertension) Surgical History History of surgery Hx of endoscopic retrograde cholangiopancreatography Hx of colonoscopy History of esophagogastroduodenoscopy (EGD) History of cataract surgery History of surgical removal of pilonidal cyst Hx of appendectomy Hx of cholecystectomy Social History Household Members: Significant Other Housing: House Are you a primary administrator health care facility to a significant other at home: No Do you presently have visiting nurse or other home services: No Alcohol intake: former Patient Tobacco Use Status: Never used Tobacco service: No Current occupational status: retired Review of Systems Const Denies daytime sleepiness, Denies excessive sweating, Denies fatigue, Denies fever(s), Denies lethargy, Denies malaise, Denies night sweats, Denies snoring and Denies weight loss Eyes Denies blurry vision and Denies itchy eyes ENT Denies nasal congestion, Denies post nasal drip, Denies sinus pain, Denies sinus pressure and Denies other ( Thrush) Card Denies chest pain, Denies pedal edema, Denies dyspnea, Denies orthopnea and Denies paroxysmal nocturnal dyspnea Resp Reports cough, Denies hemoptysis, Reports excessive phlegm production, Denies dyspnea, Denies snoring and Denies wheezing GI Denies abdominal pain and Denies heartburn Musc Denies myalgias, Denies arthralgias and Denies joint swelling Skin/Breast Denies rash Neuro Denies memory loss and Denies seizure-like activity Psych Denies abnormal sleep pattern, Denies anxiety and Denies memory loss Endo Denies excessive sweating, Denies fatigue and Denies heat intolerance Justin/Lymph Denies easy bruising Aller/Immun Denies itchy eyes, Denies seasonal rhinorrhea and Denies wheezing Physical Exam Vital Signs: Last Vital Signs Pulse 71 03/05/24 10:51 BP 148/62 H 03/05/24 10:51 Pulse Ox 97 03/05/24 10:51 Oxygen Delivery Method Room Air 03/05/24 10:51 BMI result Body Mass Index 27.2 Const General: no acute distress and alert Nutritional Appearance: not obese Orientation/consciousness: Other orientation findings ( oriented) HEENT Head: Yes atraumatic Eyes General: appearance normal, both eyes and all related structures Sclerae: sclerae normal EOM: EOMs intact bilaterally Neck Neck: Yes supple Lymphatic: no lymphadenopathy noted Resp Effort & Inspection: normal respiratory effort and no use of accessory muscles Auscultation: clear to auscultation bilaterally Cardio Rate: regular rate Rhythm: regular rhythm Heart sounds: no gallops, no murmurs and no rubs Skin General skin exam: other ( warm) Extrem General: No clubbing, No cyanosis and No edema Assessment & Plan Assessment & Plan (1) Bronchitis, mucopurulent recurrent: Code(s): J41.1 - Mucopurulent chronic bronchitis Category: Medical (2) Bronchiectasis: Code(s): J47.9 - Bronchiectasis, uncomplicated Category: Medical Plan Results of CT chest reviewed, underlying bronchiectasis with bronchitis. Will treat with Augmentin for 14 days and then air. CT scan in 4 months after completion of antibiotic therapy. May require bronchoscopic evaluation for possible JULIO if not better. Orders: Orders CT chest wo IV con 04/16/24 J47.9 - Bronchiectasis, uncomplicated Medications: New amoxicillin-pot clavulanate 875-125 mg 1 tab PO BID 28 tabs 0RF Coding Level of Care Code New Pt Level 4 (75439) Diagnoses Bronchitis, mucopurulent recurrent J41.1 Bronchiectasis J47.9
== END 2024-03-05 11:08 | disposition home or self-care (01) ==
PROVIDERS: PCP Family Medicine; Referring Provider Family Medicine; Visit Provider Internal Medicine Pulmonary Disease
DX: J41.1 Mucopurulent chronic bronchitis (principal); J47.9 Bronchiectasis, uncomplicated
CPT/HCPCS: 99204

== ENCOUNTER → 2024-03-05 10:46 | Outpatient (BNVA) | payer OTHER, SELFPAY | PROVIDERS: PCP Family Medicine; Referring Provider Internal Medicine Medical Oncology; Visit Provider Internal Medicine Pulmonary Disease | DX: J41.1 Mucopurulent chronic bronchitis (principal); J47.9 Bronchiectasis, uncomplicated | CPT/HCPCS: 99202 ==

== ENCOUNTER 2024-03-13 10:52 | Day surgery (SDC) | payer OTHER, SELFPAY ==
--- NOTE | ~2024-03-13 | CT_ITS ---
EXAMINATION: CT ABDOMEN WITHOUT CONTRAST CLINICAL INFORMATION: Right-sided omental recurrence. COMPARISON: CT abdomen and pelvis 01/31/2024. TECHNIQUE: CT abdomen without intravenous contrast. The exam covers nonstandard anatomy, presumably for intended procedure which was not performed. The exam does not include the entirety of the liver/spleen and extends almost completely through the pelvis rather than stopping at the iliac crests. This would need to be correlated with [facility] CT technologists and interventional radiologists as there is no explanation given to me in PACS other than provider determined procedure for right-sided omental recurrence no longer needed after imaging. This CT examination was performed using dose optimization techniques as appropriate, variously including the following: *Automated exposure control *Adjustment of mA and/or kV according to patient size (this includes techniques or standardized protocols for targeted exams where dose is matched to indication/reason for exam; i.e. extremities or head) *Use of iterative reconstruction technique DLP: 222 mGy-cm FINDINGS: The included lower portion of the liver is unremarkable. No discrete liver mass. Cholecystectomy. No discrete pancreatic mass or pancreatic ductal dilatation. The imaged portion of the spleen appears normal. The imaged portions of the adrenal glands appear normal. There is cortical thinning bilaterally. Simple cyst in the lower pole the right kidney for which no imaging follow-up is recommended. There is no nephrolithiasis. The small and large bowel are normal in caliber. Ileal colonic anastomosis right abdomen. Diverticulosis of the sigmoid. There is abnormal fat stranding in the region of the surgical bed in the right lower quadrant. The finding may reflect fat necrosis or scar tissue. It appears somewhat less prominent than on the study from 01/31/2024 which favors nonneoplastic etiology. No pathologically enlarged lymph nodes are seen. There are degenerative changes in the spine. CT/CT abdomen wo IV con IMPRESSION: Abnormal fat stranding in the region of the surgical bed in the right lower quadrant. The finding is less prominent than on 01/31/2024 and may relate to fat necrosis, scar tissue. The mild improvement favors nonneoplastic etiology. Clinical correlation is necessary.
[2024-03-13 11:18] VITALS: BMI 26.4
[2024-03-13 11:32] LABS: INTERNATIONAL NORM RATIO 0.9 (0.9-1.1); Prothrombin Time 10.7 SEC (11.1-13.3)
[2024-03-13 11:34] LABS: Partial Thromboplastin Time 28.5 SEC (26.0-36.8)
[2024-03-13 11:57] LABS: Glucose, Whole Blood 246 mg/dL (60-115)
--- NOTE | 2024-03-13 12:12 | MHC.SHP ---
Pre-Procedural Eval Section A - 24 Hr Update-Section A only Date of Service: 03/13/24 Section B - Complete if H&P > 30 days Chief Complaint: MALIGNANT NEOPLAS OF COLON,RT SIDE AOMENTAL RECURR Details of Present Illness: 78 y/o man with colon cancer s/p resection who presents with a right omental mass Relevant Family History (Specify if Yes): No Relevant Social History: None Present Medications: see Short Stay Collaborative assessment Medical History: Significant History History of Previous Operations: Relevant previous surgery/procedure and date(s) Allergies: Allergies Allergy/AdvReac Type Severity Reaction Status Date / Time No Known Allergies Allergy Verified 03/13/24 11:19 [No Known Allergies*] Review of Systems Sugical H&P ROS: Negative: Constitution, Cardiovascular, Respiratory and Gastrointestinal and Yes, Specify: Integumentary (reports sensation of right abdominal wall fullness) Exam Surgical H&P Exam: Normal: Heart, Normal: Lungs, Normal: Abdomen (soft, nt, protuberant, no palpable mass) and Normal: Skin Plan 78 y/o man with colon ca s/p right hemicolectomy who presents with a new right omental mass -Image guided biopsy of omental mass Time Spent With Patient Time: Total time managing care of this patient today ____ minutes.
== END 2024-03-13 13:49 | disposition home or self-care (01) ==
PROVIDERS: Physician Assistant Surgical; PCP Family Medicine; Visit Provider Internal Medicine Medical Oncology
DX: C18.9 Malignant neoplasm of colon, unspecified (principal); C77.2 Secondary and unspecified malignant neoplasm of intra-abdominal lymph nodes; Z53.8 Procedure and treatment not carried out for other reasons; K66.8 Other specified disorders of peritoneum; R10.31 Right lower quadrant pain; R91.8 Other nonspecific abnormal finding of lung field; I10 Essential (primary) hypertension; E11.9 Type 2 diabetes mellitus without complications; C44.310 Basal cell carcinoma of skin of unspecified parts of face; Z90.49 Acquired absence of other specified parts of digestive tract
CPT/HCPCS: 36415; 74150; 82947; 85610; 85730; J2250; J2310; J3010

== ENCOUNTER 2024-04-12 08:42 | Outpatient (REF) | payer OTHER, SELFPAY ==
--- NOTE | ~2024-04-12 | CT_ITS ---
EXAMINATION: CT CHEST WITHOUT CONTRAST CLINICAL INFORMATION: Bronchiectasis COMPARISON: CT chest 01/31/2024 TECHNIQUE: Multidetector volumetric CT imaging of the chest was done. Axial MIP volume rendering provided. Sagittal and coronal reformatted images were obtained. This CT examination was performed using dose optimization techniques as appropriate, variously including the following: *Automated exposure control *Adjustment of mA and/or kV according to patient size (this includes techniques or standardized protocols for targeted exams where dose is matched to indication/reason for exam; i.e. extremities or head) *Use of iterative reconstruction technique DLP: 300 mGy-cm FINDINGS: LUNGS: Central airways are patent. There is chronic bilateral bronchial wall thickening most pronounced in the lower lobes. Again noted bibasilar bronchiectasis and scattered mucus plugging. Consolidative opacity in the left lung base, mildly improved from prior exam. Irregular subpleural opacities in the posterior right lower lobe likely related to atelectasis. Again noted 0.7 cm triangular perifissural nodule along the right minor fissure, favored to represent an intrapulmonary lymph node, 14:77.No suspicious pulmonary nodule. MEDIASTINUM: Heart is normal in size. No pericardial effusion. Mild aortic arch calcifications. Stable 1.4 cm in short axis subcarinal lymph node. Mildly enlarged precarinal lymph node measuring 1.1 cm in short axis, also similar to prior exam .A few additional subcentimeter mediastinal lymph nodes which are not pathologic by size criteria. CORONARY ARTERY CALCIFICATION: Mild coronary artery calcifications. PLEURA: There is no pleural effusion. AXILLA: No lymphadenopathy. UPPER ABDOMEN: Gallbladder is surgically absent. Trace intrahepatic pneumobilia. OSSEOUS STRUCTURES: Multilevel thoracic spondylosis. No acute or suspicious osseous abnormality. CT/CT chest wo IV con IMPRESSION: 1. Chronic bilateral bronchial wall thickening most pronounced in the lower lobes. Again noted bibasilar bronchiectasis and scattered mucus plugging. Consolidative opacity in the left lung base, mildly improved from prior exam. 2. Irregular subpleural opacities in the posterior right lower lobe likely related to atelectasis. 3. Stable mildly enlarged mediastinal lymph nodes. 4. Mild coronary artery calcifications. 5. Trace intrahepatic pneumobilia which is new from prior exam. Correlation with patient's procedural history is recommended. Electronically signed by: Johann Marley MD 04/23/2024 01:17 PM EDT RP
== END 2024-04-12 08:43 | disposition home or self-care (01) ==
LOC: HO.CT 08:42
PROVIDERS: PCP Family Medicine; Visit Provider Internal Medicine Pulmonary Disease
DX: J47.9 Bronchiectasis, uncomplicated (principal)
CPT/HCPCS: 71250

== ENCOUNTER 2024-04-23 09:44 | Outpatient (AMB) | payer OTHER, SELFPAY ==
[2024-04-23 09:51] VITALS: BP 157/62; PULSE 73; O2SAT 97; BMI 27.1
--- NOTE | 2024-04-23 09:51 | MHC.OFFVIS ---
Vital Signs 04/23/24 09:51 Height 5 ft 11 in Weight 194 lb BMI 27.1 BP 157/62 H Blood Pressure Location Rt brachial Position Sitting Pulse 73 Pulse Source Doppler Pulse Oximetry (%) 97 Oxygen Delivery Method Room Air Intake Visit Reasons: Bronchiectasis Allergies No Known Allergies [No Known Allergies*] Allergy (Verified 04/23/24 09:55) HPI HPI Bronchiectasis: Details: 78-year-old gentleman, nonsmoker, with underlying history of colon cancer status post right colectomy and chemotherapy referred for evaluation of bronchiectasis and recurrent bronchitis. Patient states that he has had pneumonia 3 times in 8 years and currently continues to have intermittent productive cough. He denies prior personal history of lung disease. He does have family history of asthma in his mother. 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 He denies environmental allergies. After the last office visit patient was treated with a 14 day course of amoxicillin with significant improvement in his symptoms. His CT chest results are not available for this visit, but on my review there is essentially similar bibasilar mucus plugging will bronchiectasis. [facility] Medical History (Updated 04/09/24 @ 09:35 by Sergio Griffiths MD) History of colon cancer White coat syndrome with hypertension Pneumonia Chronic bronchitis Incisional hernia Vitamin B 12 deficiency Obesity Iron deficiency anemia Vitamin D deficiency Hyperlipidemia Cancer of skin of face Hx of pilonidal cyst History of anal fissures Diabetes HTN (hypertension) Surgical History History of surgery Hx of endoscopic retrograde cholangiopancreatography Hx of colonoscopy History of esophagogastroduodenoscopy (EGD) History of cataract surgery History of surgical removal of pilonidal cyst Hx of appendectomy Hx of cholecystectomy Social History Household Members: Significant Other Housing: House Are you a primary senior resident care director to a significant other at home: No Do you presently have visiting nurse or other home services: No Alcohol intake: former Patient Tobacco Use Status: Never used Tobacco service: No Current occupational status: retired Review of Systems Const Denies daytime sleepiness, Denies excessive sweating, Denies fatigue, Denies fever(s), Denies lethargy, Denies malaise, Denies night sweats, Denies snoring and Denies weight loss Eyes Denies blurry vision and Denies itchy eyes ENT Denies nasal congestion, Denies post nasal drip, Denies sinus pain, Denies sinus pressure and Denies other ( Thrush) Card Denies chest pain, Denies pedal edema, Denies dyspnea, Denies orthopnea and Denies paroxysmal nocturnal dyspnea Resp Denies cough, Denies hemoptysis, Denies excessive phlegm production, Denies dyspnea, Denies snoring and Denies wheezing GI Denies abdominal pain and Denies heartburn Musc Denies myalgias, Denies arthralgias and Denies joint swelling Skin/Breast Denies rash Neuro Denies memory loss and Denies seizure-like activity Psych Denies abnormal sleep pattern, Denies anxiety and Denies memory loss Endo Denies excessive sweating, Denies fatigue and Denies heat intolerance Justin/Lymph Denies easy bruising Aller/Immun Denies itchy eyes, Denies seasonal rhinorrhea and Denies wheezing Physical Exam Vital Signs: Last Vital Signs Pulse 73 04/23/24 09:51 BP 157/62 H 04/23/24 09:51 Pulse Ox 97 04/23/24 09:51 Oxygen Delivery Method Room Air 04/23/24 09:51 BMI result Body Mass Index 27.1 Const General: no acute distress and alert Nutritional Appearance: not obese Orientation/consciousness: Other orientation findings ( oriented) HEENT Head: Yes atraumatic Eyes General: appearance normal, both eyes and all related structures Sclerae: sclerae normal EOM: EOMs intact bilaterally Neck Neck: Yes supple Lymphatic: no lymphadenopathy noted Resp Effort & Inspection: normal respiratory effort and no use of accessory muscles Auscultation: clear to auscultation bilaterally Cardio Rate: regular rate Rhythm: regular rhythm Heart sounds: no gallops, no murmurs and no rubs Skin General skin exam: other ( warm) Extrem General: No clubbing, No cyanosis and No edema Assessment & Plan Assessment & Plan (1) Bronchitis, mucopurulent recurrent: Code(s): J41.1 - Mucopurulent chronic bronchitis Category: Medical (2) Bronchiectasis: Code(s): J47.9 - Bronchiectasis, uncomplicated Category: Medical Plan Symptomatically improved after 2 week course of amoxicillin. CT chest read is not available, but on my review similar mucus plugging in bilateral lower lobes. Likely underlying indolent chronic JULIO. Will continue to monitor symptoms. Will repeat CT chest in 6 months. Orders: Orders CT chest wo IV con 10/24/24 J47.9 - Bronchiectasis, uncomplicated Coding Level of Care Code Est Pt Level 4 (04718) Diagnoses Bronchitis, mucopurulent recurrent J41.1 Bronchiectasis J47.9
== END 2024-04-23 10:03 | disposition home or self-care (01) ==
PROVIDERS: PCP Family Medicine; Visit Provider Internal Medicine Pulmonary Disease
DX: J41.1 Mucopurulent chronic bronchitis (principal); J47.9 Bronchiectasis, uncomplicated
CPT/HCPCS: 99214

== ENCOUNTER → 2024-04-23 09:44 | Outpatient (BNVA) | payer OTHER, SELFPAY | PROVIDERS: PCP Family Medicine; Visit Provider Internal Medicine Pulmonary Disease | DX: J41.1 Mucopurulent chronic bronchitis (principal); J47.9 Bronchiectasis, uncomplicated | CPT/HCPCS: 99212 ==

== ENCOUNTER 2024-07-04 09:32 | Day surgery (SDC) | payer OTHER, SELFPAY ==
[2024-07-02 12:07] VITALS: BMI 25.1
--- NOTE | 2024-07-03 08:29 | HO.ANESPROP2 ---
Documented by User: Denisse Bloom NP 07/03/24 08:30 HPI - Anesthesia Eval Consult details Narrative: 78yo M for Colonoscopy Anesthesia Pre-Procedure Meds Is the patient on any of the following meds?: GLP1/DPP4 PMFSH Active Problems Active Problems: All Active Problems Bronchitis, mucopurulent recurrent (Acute) Bronchiectasis (Acute) Easy bruising (Acute) Elevated alkaline phosphatase level (Acute) S/P right colectomy (Acute) Adenocarcinoma of colon (Acute) Adenocarcinoma (Acute) Colonic mass (Acute) Anemia (Acute) Iron deficiency (Acute) History of colon cancer (Acute) Past Medical History Medical History History of colon cancer White coat syndrome with hypertension Pneumonia Chronic bronchitis Incisional hernia Vitamin B 12 deficiency Obesity Iron deficiency anemia Vitamin D deficiency Hyperlipidemia Cancer of skin of face Hx of pilonidal cyst History of anal fissures Diabetes HTN (hypertension) Family History Family history of problems with anesthesia: No Surgical History Surgical History History of surgery Hx of endoscopic retrograde cholangiopancreatography Hx of colonoscopy History of esophagogastroduodenoscopy (EGD) History of cataract surgery History of surgical removal of pilonidal cyst Hx of appendectomy Hx of cholecystectomy History of Problems with Anesthesia: Yes (Slow awakening with lap sonal) Social History Social History Household Members: Significant Other Housing: House Are you a primary intensive care anaesthetist to a significant other at home: No Do you presently have visiting nurse or other home services: No Alcohol intake: former Patient Tobacco Use Status: Never used Tobacco Have you been hit, kicked, punched, or otherwise hurt by someone within the past year? If so, by whom?: No Are you DNR?: No Advance Directives: No Advance Directives Information Provided: Yes Nutrition Risks: No Nutritional Risk service: No Current occupational status: retired Meds Allergies Allergy/AdvReac Type Severity Reaction Status Date / Time No Known Allergies Allergy Verified 06/13/24 10:30 [No Known Allergies*] Home Medications ?Medication ?Instructions ?Recorded ?Confirmed ?Last Taken ?Type amlodipine 10 mg tablet 10 mg PO DAILY 04/24/23 07/04/24 06/14/23 04:45 History cyanocobalamin (vitamin B-12) 500 500 mcg PO DAILY 04/24/23 07/04/24 06/13/23 History mcg tablet dulaglutide 1.5 mg/0.5 mL 1.5 mg subcut FR 04/24/23 07/04/24 06/13/24 History subcutaneous pen injector lisinopril 40 mg tablet 40 mg PO DAILY 04/24/23 07/04/24 06/13/23 History metformin 500 mg tablet,extended 500 mg PO BEDTIME 04/24/23 07/04/24 06/13/23 23:00 History release 24 hr carvedilol 25 mg tablet 25 mg PO BID 06/07/23 07/04/24 06/14/23 04:45 History Exam Height,Weight and Vital Signs: Height 5 ft 11 in Weight 81.647 kg Assessment and Plan Assessment Anesthesia Assessment: Chart Reviewed Final Anesthetic Review Family History of Problems with Anesthesia: No History of Problems with Anesthesia: Yes (Slow awakening with lap sonal) Documented by User: Lalitha Thompson MD 07/04/24 11:16 PMFSH Past Medical History Medical History History of colon cancer White coat syndrome with hypertension Pneumonia Chronic bronchitis Incisional hernia Vitamin B 12 deficiency Obesity Iron deficiency anemia Vitamin D deficiency Hyperlipidemia Cancer of skin of face Hx of pilonidal cyst History of anal fissures Diabetes HTN (hypertension) Surgical History Surgical History History of surgery Hx of endoscopic retrograde cholangiopancreatography Hx of colonoscopy History of esophagogastroduodenoscopy (EGD) History of cataract surgery History of surgical removal of pilonidal cyst Hx of appendectomy Hx of cholecystectomy Social History Social History Household Members: Significant Other Housing: House Are you a primary intensive care anaesthetist to a significant other at home: No Do you presently have visiting nurse or other home services: No Alcohol intake: former Patient Tobacco Use Status: Never used Tobacco Have you been hit, kicked, punched, or otherwise hurt by someone within the past year? If so, by whom?: No Are you DNR?: No Advance Directives: No Advance Directives Information Provided: Yes Nutrition Risks: No Nutritional Risk service: No Current occupational status: retired [employer] Allergies Allergy/AdvReac Type Severity Reaction Status Date / Time No Known Allergies Allergy Verified 06/13/24 10:30 [No Known Allergies*] Home Medications ?Medication ?Instructions ?Recorded ?Confirmed ?Last Taken ?Type amlodipine 10 mg tablet 10 mg PO DAILY 04/24/23 07/04/24 06/14/23 04:45 History cyanocobalamin (vitamin B-12) 500 500 mcg PO DAILY 04/24/23 07/04/24 06/13/23 History mcg tablet dulaglutide 1.5 mg/0.5 mL 1.5 mg subcut FR 04/24/23 07/04/24 06/13/24 History subcutaneous pen injector lisinopril 40 mg tablet 40 mg PO DAILY 04/24/23 07/04/24 06/13/23 History metformin 500 mg tablet,extended 500 mg PO BEDTIME 04/24/23 07/04/24 06/13/23 23:00 History release 24 hr carvedilol 25 mg tablet 25 mg PO BID 06/07/23 07/04/24 06/14/23 04:45 History Exam Airway Mallampati Class: III TM Dist: <=3cm Neck ROM: Limited Heart: rrr Lungs: cta Assessment and Plan Final Anesthetic Review NPO: Yes ASA Class: III Final Preanesthetic Review: No Changes in Pt Med Stat, Meds/Allgs Chart Reviewed, Consent Obtained/Reviewed and Anes Risks/Benef Reviewed Patient Risk: Intermediate Procedure Risk: Low Anesthetic Plan Anesthetic Plan: MAC: Disposition: Standard PACU
[2024-07-04 09:45] VITALS: BP 200/89; PULSE 74; RESP 18; TEMP 36.1; O2SAT 97; BMI 25.3
[2024-07-04 09:58] LABS: Glucose, Whole Blood 210 mg/dL (60-115)
[2024-07-04 10:08] VITALS: BP 192/88
[2024-07-04] MEDS: Lactated Ringers 1,000 ML 100 ML IVCONT (10:15)
--- NOTE | 2024-07-04 10:23 | MHC.SHP ---
Pre-Procedural Eval Section A - 24 Hr Update-Section A only Date of Service: 07/04/24 Section B - Complete if H&P > 30 days Chief Complaint: Personal history of other malignant neoplasm of la Details of Present Illness: History of colon cancer White coat syndrome with hypertension Pneumonia Chronic bronchitis Incisional hernia Vitamin B 12 deficiency Obesity Iron deficiency anemia Vitamin D deficiency Hyperlipidemia Cancer of skin of face Hx of pilonidal cyst History of anal fissures Diabetes HTN (hypertension) Surgical History History of surgery Hx of endoscopic retrograde cholangiopancreatography Hx of colonoscopy History of esophagogastroduodenoscopy (EGD) History of cataract surgery History of surgical removal of pilonidal cyst Hx of appendectomy Hx of cholecystectomy Allergies: Allergies Allergy/AdvReac Type Severity Reaction Status Date / Time No Known Allergies Allergy Verified 06/13/24 10:30 [No Known Allergies*] Review of Systems Review of Systems Comment: Ten point ROS negative Exam Exam Comment: Gen appear: No acute distress HEENT: no icterus Chest: No overt resp distress Abd: soft, nontender, nondistended Psych: Stable affect, answering questions appropriately Neuro: A/Ox3 noted to move all extremities spontaneously Ext: no peripheral edema Plan Diagnosis/Plan: Unchanged I have reviewed the history and physical and performed a pertinent physical examination on my patient. No changes have occurred unless specified. Time Spent With Patient Time: Total time managing care of this patient today ____ minutes.
--- NOTE | 2024-07-04 10:31 | PC.NURSE ---
dr coelho aware PATIENTS B/P AND POC WILL ASSESS PT
--- NOTE | 2024-07-04 11:39 | P.OPN-COLO_ITS ---
Colonoscopy Operative Note Operative Note Date of Service: 07/04/24 Narrative: Procedure: Colonoscopy Indication: Personal hx of colon ca Endoscopist: Lisa Small MD Anesthesia Provider: Catalina Solis CRNA Anesthesia type: MAC Instrument: Olympus [id number]-H190L Consent: Indication, risks vs benefits, and alternatives were discussed with the patient who gave written informed consent to proceed. EKG, pulse, pulse oximetry and blood pressure were monitored throughout the procedure. Please see anesthesia flowsheet. Procedure: The patient was brought to the procedure room and placed in the left lateral decubitus position. IV medications were administered by the anesthesia provider in attendance. A digital rectal exam was performed which was normal. A distal attachment cap was affixed to the tip of the colonoscope which was then inserted through the anus and advanced through the colon to ileocolonic anastomosis at 65 cm,and terminal ileum. Mucosa was carefully examined under high definition white light as the instrument was slowly withdrawn in a retrograde panoramic fashion. Retroflexion was performed in rectum. The procedure was not difficult. There were no immediate obvious complications. The quality of the prep was BBPS: N/A+1+2 = inadequate Withdrawal time 16 minutes. Limitations: Poor prep. Findings: Mucosa: Copious opaque liquid stool was present throughout the colon. Adequate visualization could not be obtained despite extensively flushing and suctioning. [id number] ileocolic anastomosis noted at 65 cm. No recurrent or residual ca noted in transverse colon stump. Cold forceps biopsies were taken from the anastomosis and the blind terminal ileum stump. Protruding lesions: * Medium internal hemorrhoids without stigmata of recent bleeding. Excavated lesions: * Moderate to severe diverticulosis of whole colon L>R. Impression: 1. Poor prep 2. No residual or recurrent mass/polyp. 3. Diverticulosis 3. Internal hemorrhoids Recommendations: - Repeat colonoscopy in 1 year due to poor prepf
[2024-07-04 12:15] VITALS: BP 127/59; PULSE 57; RESP 16; TEMP 36.3; O2SAT 94
[2024-07-04 12:36] VITALS: BP 154/75; PULSE 66; RESP 16; TEMP 36.1; O2SAT 94
== END 2024-07-04 12:59 | disposition home or self-care (01) ==
PROVIDERS: PCP Family Medicine; Visit Provider Internal Medicine
PROC: 0DJD8ZZ Inspection of Lower Intestinal Tract, Via Natural or Artificial Opening Endoscopic (ICD-10-PCS; CPT 45378; principal; 2024-07-04 11:30)
DX: K57.30 Diverticulosis of large intestine without perforation or abscess without bleeding (principal); K64.8 Other hemorrhoids; K63.89 Other specified diseases of intestine; Z85.038 Personal history of other malignant neoplasm of large intestine; E61.1 Iron deficiency; I10 Essential (primary) hypertension; E11.9 Type 2 diabetes mellitus without complications; E78.5 Hyperlipidemia, unspecified; E53.8 Deficiency of other specified B group vitamins; E55.9 Vitamin D deficiency, unspecified; Z90.49 Acquired absence of other specified parts of digestive tract; Z79.84 Long term (current) use of oral hypoglycemic drugs; Z79.4 Long term (current) use of insulin; Z79.899 Other long term (current) drug therapy
CPT/HCPCS: 45380; 82947; 88305; J2003; J2250; J2704

== ENCOUNTER → 2024-07-04 09:32 | Outpatient (BNV) | payer MEDICARE, SELFPAY | PROVIDERS: PCP Family Medicine; Visit Provider Internal Medicine | DX: Z12.11 Encounter for screening for malignant neoplasm of colon (principal); Z85.038 Personal history of other malignant neoplasm of large intestine; K57.90 Diverticulosis of intestine, part unspecified, without perforation or abscess without bleeding; Z91.199 Patient's noncompliance with other medical treatment and regimen due to unspecified reason | CPT/HCPCS: 45380 ==

== ENCOUNTER 2024-08-29 08:48 | Outpatient (REF) | payer OTHER, SELFPAY ==
--- NOTE | ~2024-08-29 | CT_ITS ---
EXAMINATION: CT ABDOMEN AND PELVIS WITH CONTRAST CLINICAL INFORMATION: Follow-up of colon cancer COMPARISON: None available. TECHNIQUE: Multidetector volumetric images were obtained from the superior aspect of the liver through the pubic symphysis following administration 85 mL of Omnipaque 350 intravenous contrast. Sagittal and coronal reformatted images were obtained on the technologist's workstation. Oral contrast: No This CT examination was performed using dose optimization techniques as appropriate, variously including the following: *Automated exposure control *Adjustment of mA and/or kV according to patient size (this includes techniques or standardized protocols for targeted exams where dose is matched to indication/reason for exam; i.e. extremities or head) *Use of iterative reconstruction technique FINDINGS: LUNG BASES: The heart size is normal. There is mild bronchiectasis and peribronchial thickening and debris in both lung bases. There is mild bibasilar atelectasis. Previously seen reticulonodular changes right lung base are not optimally visualized. LIVER, GALLBLADDER, AND BILIARY TREE: The liver is normal in size, shape, and attenuation. No focal hepatic lesion or biliary ductal dilatation is present. The gallbladder has been surgically removed. PANCREAS: Unremarkable. SPLEEN: Unremarkable. ADRENAL GLANDS: Unremarkable. KIDNEYS AND URETERS: The kidneys are normal in size, shape, and attenuation. No hydronephrosis, hydroureter, or calculi seen. No perinephric stranding. There are bilateral nonenhancing renal cysts largest in the mid to lower pole right kidney measures 0.4 cm. BLADDER: Unremarkable. GASTROINTESTINAL TRACT: There is scattered stool and gas and hourglass in throughout the colon without distention. Oral contrast opacified small bowel loops are normal caliber. There are postsurgical changes right colon likely from partial colectomy and ileal anastomosis appears patent. No recurrent mass seen in this region. Appendix is not visualized. ABDOMINAL WALL: There is a small midline supraumbilical hernia containing fat. Soft tissue thickening is seen in the region of the umbilicus likely from old postsurgical scar or inflammatory process. LYMPH NODES: Normal. VASCULAR: Unremarkable. PELVIC VISCERA: The prostate gland is mildly enlarged. No free fluid. No abnormal pelvic lymph nodes. No evidence of inguinal hernia OSSEOUS STRUCTURES: No aggressive lytic or sclerotic process seen. Moderate ventral spondylosis throughout lumbar spine. CT/CT abdomen pelvis w IV con IMPRESSION: Likely partial right hemicolectomy with ileocolic anastomosis widely patent. No recurrent mass or adenopathy is seen in this region. Cholecystectomy. Appendix is not seen likely removed. Mild constipation. Midline supraumbilical abdominal wall hernia and soft tissue thickening in the region of umbilicus likely postop scar or chronic inflammation. It is unchanged to previous exam 01/31/2024. Fleischner guidelines were followed. Electronically signed by: Tray Salas MD 08/29/2024 02:25 PM EST
[2024-08-29 13:00] LABS: Creatinine POC 1.2 mg/dL (0.5-1.4); GFR POC > 60
[2024-08-29] MEDS: iohexoL 350 MG/ML 100 ML INFUS..BTL IV (13:03)
[2024-08-29] MEDS: Barium Sulfate Oral (Vanilla) 450 ML ORAL.SUSP 900 ML PO (13:04)
== END 2024-08-29 08:49 | disposition home or self-care (01) ==
LOC: HO.CT 08:48
PROVIDERS: PCP Family Medicine; Visit Provider Internal Medicine Medical Oncology
DX: C18.9 Malignant neoplasm of colon, unspecified (principal)
CPT/HCPCS: 74177; 82565; Q9967

== ENCOUNTER → 2024-08-29 08:53 | Outpatient (BNV) | payer OTHER, SELFPAY | PROVIDERS: PCP Family Medicine; Visit Provider Radiology Diagnostic Radiology | DX: Z85.038 Personal history of other malignant neoplasm of large intestine (principal) | CPT/HCPCS: 74177 ==

== ENCOUNTER 2025-02-06 06:18 | Day surgery (SDC) | payer OTHER, SELFPAY ==
--- OUTSIDE RECORDS SUMMARY | 2024-12-27 07:46 | XMS_ITS | Clinical Summary ---
Author Organization [employer] Address [address] [facility] [address] [place] [address] Care Team Providers Care Conductor [employer] Name Role Phone Unavailable Primary Care Provider Unavailabl e Allergies No known active allergies Medications amLODIPine (Norvasc) 10 MG tablet 10 mg. 10/04/2016 Active carvedilol (Coreg) 25 MG tablet Take 25 mg by mouth. 10/04/2016 Active metFORMIN XR (Glucophage-XR) 500 MG 24 hr tablet Take 2 tablets by mouth in the morning. 09/20/2022 Active lisinopril 40 MG tablet 40 mg. 10/04/2016 Active Social History Tobacco Use Types Packs/Day Years Used Date Smoking Tobacco: Never Smokeless Tobacco: Current Chew Tobacco Cessation:Ready to Q uit: No; Counseling Given: Not Answered Alcohol Use Standard Drinks/Week Comments Yes 12 (1 standard drink = 0.6 oz pu re alcohol) 12 beers a year Sex and Gender Information Value Date Recorded Sex Assigned at Male 05/02/2023 9:17 AM EDT Legal Sex Male 8:37 AM EDT Gender Identity Male 05/02/2023 9:17 AM EDT Sexual Orientation Straight 05/02/2023 9: 18 AM EDT Plan of Treatment Health Maintenance Due Date Last Done Comments Dental Oral Exam 1946 Dental Prophylaxis 1946 Dental X-Ray: Bitewings 1946 Dental X-Ray: Full Mouth 1946 Depression Screening 1946 Lipid Panel 1946 SDOH Screening 1946 Alcohol/Substance Use Screening 1958 Hepatitis C Screening 1964 DTaP/Tdap/Td Vaccines (1 - Tdap) 1965 Zoster Vaccines (1 of 2) 1996 Pneumococcal Vaccine: 50+ Ye ars (2 of 2 - PPSV23) 2019 2018 RSV Patients and Pa tients Aged 60 years or older (1 - 1-dose 75+ series) 2021 COVID-19 Vaccine (2023-2 5 season) 2024 Influenza Vaccine (#1) 2024 Tobacco Screening 05/02/2024 05/02/2023 HIB Vaccines Aged Out No longer eligi ble based on patient's age to complete this topic HPV Vaccines Aged Out No longer eligi ble based on patient's age to complete this topic Hepatitis A Vaccines Aged Out No long er eligible based on patient's age to complete this topic Hepatitis B Vaccines Aged Out No long er eligible based on patient's age to complete this topic IPV Vaccines Aged Out No longer eligi ble based on patient's age to complete this topic Meningococcal Vaccine Aged Out No kelly francisco j eligible based on patient's age to complete this topic RSV under 20 months Aged Out No longe r eligible based on patient's age to complete this topic Rotavirus Vaccines Aged Out No longer eligible based on patient's age to complete this topic
--- OUTSIDE RECORDS SUMMARY | 2024-12-27 07:46 | XMS_ITS | Encounter Summary ---
Author Organization [employer] Address [address] [place] [address] [address] [place] [address] Care Team Providers Care Audit Associate Name Role Phone Unavailable Primary Care Provider Unavailabl e Reason for Visit * Reason Onset Date Comments script to [facility] 05/08/2023 Encounter Details Date Type Department Care Team (Late st Contact Info) Description 05/08/2023 Telephone [facility] [address] [place] [address] Bushra Medrano BDS script to [facility] Social History Tobacco Use Types Packs/Day Years Used Date Smoking Tobacco: Never Smokeless Tobacco: Current Chew Alcohol Use Standard Drinks/Week Comments Yes 12 (1 standard drink = 0.6 oz pu re alcohol) 12 beers a year Sex and Gender Information Value Date Recorded Sex Assigned at Male 05/02/2023 9:17 AM EDT Legal Sex Male 8:37 AM EDT Gender Identity Male 05/02/2023 9:17 AM EDT Sexual Orientation Straight 05/02/2023 9: 18 AM EDT documented as of this encounter Miscellaneous Notes * Telephone Encounter - Oliva Jon - 05/08/2023 1:20 PM EDT Prior [facility] was [facility] on [facility]. [facility] for a [facility] That is outside of their service . They would like to have the script sent to [facility]. Can this pls be resent today to [facility]. He would like to come pick it up as soon as possible. He's gone all weekend without it. DR documented in this encounter Plan of Treatment Not on file documented as of this encounter Visit Diagnoses Not on filedocumented in this encounter
[2025-02-04 11:51] VITALS: BMI 25.2
--- NOTE | 2025-02-05 09:05 | P.CONAN_ITS ---
Documented by User: Denisse Bloom NP 02/05/25 09:07 HPI - Anesthesia Eval Consult details Narrative: 79yo M for Colonoscopy s/p colo 06/2024 with TIVA - poor prep PMFSH Active Problems Active Problems: All Active Problems Bronchitis, mucopurulent recurrent (Acute) Bronchiectasis (Acute) Easy bruising (Acute) Elevated alkaline phosphatase level (Acute) S/P right colectomy (Acute) Adenocarcinoma of colon (Acute) Adenocarcinoma (Acute) Colonic mass (Acute) Anemia (Acute) Iron deficiency (Acute) History of colon cancer (Acute) Past Medical History Medical History History of colon cancer White coat syndrome with hypertension Pneumonia Chronic bronchitis Incisional hernia Vitamin B 12 deficiency Obesity Iron deficiency anemia Vitamin D deficiency Hyperlipidemia Cancer of skin of face Hx of pilonidal cyst History of anal fissures Diabetes HTN (hypertension) Family History Family history of problems with anesthesia: No Surgical History Surgical History History of surgery Hx of endoscopic retrograde cholangiopancreatography Hx of colonoscopy History of esophagogastroduodenoscopy (EGD) History of cataract surgery History of surgical removal of pilonidal cyst Hx of appendectomy Hx of cholecystectomy History of Problems with Anesthesia: Yes (Slow awakening with lap sonal) Social History Social History Household Members: Significant Other Housing: House Are you a primary healthcare applications analyst to a significant other at home: No Do you presently have visiting nurse or other home services: No Alcohol intake: former Patient Tobacco Use Status: Never used Tobacco Use of substances other than those prescribed or required for medical reasons: No Have you been hit, kicked, punched, or otherwise hurt by someone within the past year? If so, by whom?: No Advance Directives: No Advance Directives Information Provided: Yes service: No Current occupational status: retired Meds Allergies Allergy/AdvReac Type Severity Reaction Status Date / Time No Known Allergies Allergy Verified 02/06/25 06:49 [No Known Allergies*] Home Medications ?Medication ?Instructions ?Recorded ?Confirmed ?Last Taken ?Type amlodipine 10 mg tablet 10 mg PO DAILY 04/24/23 02/06/25 06/14/23 04:45 History cyanocobalamin (vitamin B-12) 500 500 mcg PO DAILY 04/24/23 02/06/25 06/13/23 History mcg tablet dulaglutide 1.5 mg/0.5 mL 1.5 mg subcut FR 04/24/23 02/06/25 01/29/25 History subcutaneous pen injector lisinopril 40 mg tablet 40 mg PO DAILY 04/24/23 02/06/25 06/13/23 History metformin 500 mg tablet,extended 500 mg PO BEDTIME 04/24/23 02/06/25 06/13/23 23:00 History release 24 hr carvedilol 25 mg tablet 25 mg PO BID 06/07/23 02/06/25 06/14/23 04:45 History Exam Height,Weight and Vital Signs: Height 5 ft 11 in Weight 82 kg Assessment and Plan Assessment Anesthesia Assessment: Chart Reviewed Final Anesthetic Review Family History of Problems with Anesthesia: No History of Problems with Anesthesia: Yes (Slow awakening with lap sonal) Documented by User: Katty Swenson MD 02/06/25 07:29 [facility] Past Medical History Medical History History of colon cancer White coat syndrome with hypertension Pneumonia Chronic bronchitis Incisional hernia Vitamin B 12 deficiency Obesity Iron deficiency anemia Vitamin D deficiency Hyperlipidemia Cancer of skin of face Hx of pilonidal cyst History of anal fissures Diabetes HTN (hypertension) Surgical History Surgical History History of surgery Hx of endoscopic retrograde cholangiopancreatography Hx of colonoscopy History of esophagogastroduodenoscopy (EGD) History of cataract surgery History of surgical removal of pilonidal cyst Hx of appendectomy Hx of cholecystectomy Social History Social History Household Members: Significant Other Housing: House Are you a primary healthcare applications analyst to a significant other at home: No Do you presently have visiting nurse or other home services: No Alcohol intake: former Patient Tobacco Use Status: Never used Tobacco Use of substances other than those prescribed or required for medical reasons: No Have you been hit, kicked, punched, or otherwise hurt by someone within the past year? If so, by whom?: No Advance Directives: No Advance Directives Information Provided: Yes service: No Current occupational status: retired Meds Allergies Allergy/AdvReac Type Severity Reaction Status Date / Time No Known Allergies Allergy Verified 02/06/25 06:49 [No Known Allergies*] Home Medications ?Medication ?Instructions ?Recorded ?Confirmed ?Last Taken ?Type amlodipine 10 mg tablet 10 mg PO DAILY 04/24/23 02/06/25 06/14/23 04:45 History cyanocobalamin (vitamin B-12) 500 500 mcg PO DAILY 04/24/23 02/06/25 06/13/23 History mcg tablet dulaglutide 1.5 mg/0.5 mL 1.5 mg subcut FR 04/24/23 02/06/25 01/29/25 History subcutaneous pen injector lisinopril 40 mg tablet 40 mg PO DAILY 04/24/23 02/06/25 06/13/23 History metformin 500 mg tablet,extended 500 mg PO BEDTIME 04/24/23 02/06/25 06/13/23 23 :00 History release 24 hr carvedilol 25 mg tablet 25 mg PO BID 06/07/23 02/06/25 06/14/23 04:45 History Exam Airway Mallampati Class: III TM Dist: >3cm Neck ROM: Limited Loose/Missing/Broken Teeth: No Heart: RRR Lungs: CTA Assessment and Plan Assessment Anesthesia Assessment: Anesthesia Plan Discussed Final Anesthetic Review NPO: Yes ASA Class: III Final Preanesthetic Review: Meds/Allgs Chart Reviewed, Consent Obtained/Reviewed and Anes Risks/Benef Reviewed Patient Risk: Intermediate Procedure Risk: Low Anesthetic Plan Anesthetic Plan: MAC: Disposition: Standard PACU
[2025-02-06 06:59] VITALS: BP 172/69; PULSE 69; RESP 16; TEMP 36.8; O2SAT 96; BMI 29.8
[2025-02-06] MEDS: Lactated Ringers 1,000 ML 100 ML IVCONT (07:03)
[2025-02-06 07:22] LABS: Glucose, Whole Blood 135 mg/dL (60-115)
--- NOTE | 2025-02-06 07:54 | MHC.SHP ---
Pre-Procedural Eval Section A - 24 Hr Update-Section A only Date of Service: 02/06/25 Section B - Complete if H&P > 30 days Chief Complaint: Personal history of other malignant neoplasm of Details of Present Illness: History of colon cancer White coat syndrome with hypertension Pneumonia Chronic bronchitis Incisional hernia Vitamin B 12 deficiency Obesity Iron deficiency anemia Vitamin D deficiency Hyperlipidemia Cancer of skin of face Hx of pilonidal cyst History of anal fissures Diabetes HTN (hypertension) Surgical History History of surgery Hx of endoscopic retrograde cholangiopancreatography Hx of colonoscopy History of esophagogastroduodenoscopy (EGD) History of cataract surgery History of surgical removal of pilonidal cyst Hx of appendectomy Hx of cholecystectomy Allergies: Allergies Allergy/AdvReac Type Severity Reaction Status Date / Time No Known Allergies Allergy Verified 09/17/24 11:40 [No Known Allergies*] Review of Systems Review of Systems Comment: Ten point ROS negative Exam Exam Comment: Gen appear: No acute distress HEENT: no icterus Chest: No overt resp distress Abd: soft, nontender, nondistended Psych: Stable affect, answering questions appropriately Neuro: A/Ox3 noted to move all extremities spontaneously Ext: no peripheral edema Plan Diagnosis/Plan: Unchanged I have reviewed the history and physical and performed a pertinent physical examination on my patient. No changes have occurred unless specified. Time Spent With Patient Time: Total time managing care of this patient today ____ minutes.
--- NOTE | 2025-02-06 08:33 | P.OPN-COLO_ITS ---
Colonoscopy Operative Note Operative Note Date of Service: 02/06/25 Narrative: Procedure: Colonoscopy Indication: Personal hx of colon ca Endoscopist: Lisa Small MD Anesthesia Provider: Claus Dave CRNA Anesthesia type: MAC Instrument: Olympus [id number]-[id number] Consent: Indication, risks vs benefits, and alternatives were discussed with the patient who gave written informed consent to proceed. EKG, pulse, pulse oximetry and blood pressure were monitored throughout the procedure. Please see anesthesia flowsheet. Procedure: The patient was brought to the procedure room and placed in the left lateral decubitus position. IV medications were administered by the anesthesia provider in attendance. A digital rectal exam was performed which was normal. A distal attachment cap was affixed to the tip of the colonoscope which was then inserted through the anus and advanced through the colon to ileocolonic anastomosis at 65 cm,and terminal ileum. Mucosa was carefully examined under high definition white light as the instrument was slowly withdrawn in a retrograde panoramic fashion. Retroflexion was performed in rectum. The procedure was not difficult. There were no immediate obvious complications. The quality of the prep was BBPS: N/A+2+2 = adequate Withdrawal time 17 minutes. Limitations: No limitations Findings: Mucosa: [id number] ileocolic anastomosis noted at 65 cm along with a blind stump. No recurrent or residual ca noted in transverse colon stump or at the ansatomosis. Cold forceps biopsies were taken from the anastomosis. Protruding lesions: * One subepithelial nodule of size 15 mm in transverse colon. Bite on bite cold forceps biopsies were performed revealing underlying lipoma. * Two sessile polyp of size 4-5 mm in transverse colon. Cold forceps polypectomy was performed due to unavailability of appropriate equipment. The polyps were completely removed and retrieved. * Medium internal hemorrhoids without stigmata of recent bleeding. Excavated lesions: * Moderate to severe diverticulosis of whole colon L>R. Impression: 1. No residual or recurrent mass/polyp. 2. 2 polyps removed 3. 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 Diverticulosis 5. Internal hemorrhoids Recommendations: - Repeat colonoscopy in 3 years for CRC surveillance if patient in good health.
[2025-02-06 08:39] VITALS: BP 107/63; PULSE 67; RESP 16; TEMP 36.4; O2SAT 92
[2025-02-06 09:00] VITALS: BP 126/72; PULSE 69; RESP 18; TEMP 36.4; O2SAT 97
== END 2025-02-06 09:26 | disposition home or self-care (01) ==
PROVIDERS: PCP Family Medicine; Visit Provider Internal Medicine
PROC: 0DJD8ZZ Inspection of Lower Intestinal Tract, Via Natural or Artificial Opening Endoscopic (ICD-10-PCS; CPT 45378; principal; 2025-02-06 07:30)
DX: Z12.11 Encounter for screening for malignant neoplasm of colon (principal); Z85.038 Personal history of other malignant neoplasm of large intestine; Z90.49 Acquired absence of other specified parts of digestive tract; Z98.0 Intestinal bypass and anastomosis status; D12.3 Benign neoplasm of transverse colon; K57.30 Diverticulosis of large intestine without perforation or abscess without bleeding; K64.0 First degree hemorrhoids; C44.310 Basal cell carcinoma of skin of unspecified parts of face; I10 Essential (primary) hypertension; E11.9 Type 2 diabetes mellitus without complications; D50.9 Iron deficiency anemia, unspecified; E55.9 Vitamin D deficiency, unspecified; E78.5 Hyperlipidemia, unspecified; Z79.84 Long term (current) use of oral hypoglycemic drugs; Z79.85 Long-term (current) use of injectable non-insulin antidiabetic drugs; Z79.899 Other long term (current) drug therapy; Z98.890 Other specified postprocedural states
CPT/HCPCS: 45380; 82947; 88305; J2704

== ENCOUNTER → 2025-02-06 06:18 | Outpatient (BNV) | payer OTHER, SELFPAY | PROVIDERS: PCP Family Medicine; Visit Provider Internal Medicine | DX: Z12.11 Encounter for screening for malignant neoplasm of colon (principal); Z85.038 Personal history of other malignant neoplasm of large intestine; Z98.0 Intestinal bypass and anastomosis status; D17.5 Benign lipomatous neoplasm of intra-abdominal organs; D12.3 Benign neoplasm of transverse colon; K57.90 Diverticulosis of intestine, part unspecified, without perforation or abscess without bleeding; K64.8 Other hemorrhoids | CPT/HCPCS: 45380 ==